=== PATIENT | male | born 1950 | race Caucasian/White ===

== ENCOUNTER → 2016-09-14 | Outpatient (CLI) | payer MEDICAID ==
[2016-09-14 13:04] LABS: BASOPHILS % (AUTO) 0 % (0-10); EOSINOPHILS # (AUTO) 0.3 10^3/uL (0.0-0.3); EOSINOPHILS % (AUTO) 4 % (0-10); LYMPHOCYTES # (AUTO) 2.1 X 10^3 (1.0-4.0); LYMPHOCYTES % (AUTO) 31 % (12-44); MEAN CORPUSCULAR HEMOGLOBIN 31 PG (25-34); MEAN CORPUSCULAR HGB CONC 34 G/DL (32-36); MEAN CORPUSCULAR VOLUME 94 FL (80-99); MEAN PLATELET VOLUME 8.6 FL (7.4-10.4); MONOCYTES # (AUTO) 0.9 X 10^3 (0.0-1.0); MONOCYTES % (AUTO) 13 % (0-12); NEUTROPHILS # (AUTO) 3.4 X 10^3 (1.8-7.8); NEUTROPHILS % (AUTO) 52 % (42-75); PLATELET COUNT 269 10^3/uL (130-400); RED BLOOD COUNT 4.69 10^6/uL (4.35-5.85); WHITE BLOOD COUNT 6.7 10^3/uL (4.3-11.0)
[2016-09-14 13:48] LABS: ALANINE AMINOTRANSFERASE 21 U/L (0-55); ALBUMIN 4.5 G/DL (3.2-4.5); ANION GAP 11 MMOL/L (5-14); ASPARTATE AMINO TRANSFERASE 23 U/L (5-34); BILIRUBIN,TOTAL 0.3 MG/DL (0.1-1.0); BLOOD UREA NITROGEN 10 MG/DL (7-18); BUN/CREATININE RATIO 12; CALCIUM 9.4 MG/DL (8.5-10.1); CARBON DIOXIDE 27 MMOL/L (21-32); CHLORIDE 103 MMOL/L (98-107); CREATININE SERUM 0.82 MG/DL (0.60-1.30); GFR ESTIMATED > 60; GLUCOSE 96 MG/DL (70-105); POTASSIUM 4.4 MMOL/L (3.6-5.0); SODIUM 141 MMOL/L (135-145); TOTAL PROTEIN 7.4 G/DL (6.4-8.2)
[2016-09-14 14:10] LABS: THYROID STIMULATING HORMONE 1.11 UIU/ML (0.35-4.94)
== END ==
LOC: ONC 12:40
PROVIDERS: ATTEND Internal Medicine Hematology & Oncology
DX: Z08 Encounter for follow-up examination after completed treatment for malignant neoplasm (principal); Z85.21 Personal history of malignant neoplasm of larynx; E03.9 Hypothyroidism, unspecified; G40.909 Epilepsy, unspecified, not intractable, without status epilepticus; Z79.899 Other long term (current) drug therapy
CPT/HCPCS: 36415; 80053; 84443; 85025; 99213

== ENCOUNTER → 2017-06-21 | Outpatient (CLI) | payer MEDICAID ==
[2017-06-21 09:48] LABS: HEMOGLOBIN 14.9 G/DL (13.3-17.7); MEAN PLATELET VOLUME 9.2 FL (7.4-10.4); RED BLOOD COUNT 4.59 10^6/uL (4.35-5.85); RED CELL DISTRIBUTION WIDTH 13.8 % (10.0-14.5); WHITE BLOOD COUNT 4.7 10^3/uL (4.3-11.0)
[2017-06-21 10:08] LABS: ALANINE AMINOTRANSFERASE 27 U/L (0-55); ALBUMIN 4.6 GM/DL (3.2-4.5); ALKALINE PHOSPHATASE 89 U/L (40-136); BILIRUBIN,TOTAL 0.4 MG/DL (0.1-1.0); BUN/CREATININE RATIO 14; CALCIUM 9.6 MG/DL (8.5-10.1); CARBON DIOXIDE 23 MMOL/L (21-32); CHLORIDE 105 MMOL/L (98-107); CHOLESTEROL 217 MG/DL (< 200); CREATININE SERUM 0.74 MG/DL (0.60-1.30); GFR ESTIMATED > 60; GLUCOSE 100 MG/DL (70-105); HDL CHOLESTEROL 88 MG/DL (40-60); POTASSIUM 3.9 MMOL/L (3.6-5.0); SODIUM 141 MMOL/L (135-145); TOTAL PROTEIN 7.9 GM/DL (6.4-8.2); TRIGLYCERIDES 57 MG/DL (<150); VLDL CHOLESTEROL 11 MG/DL (5-40)
== END ==
LOC: LAB 08:58
PROVIDERS: ATTEND Family Medicine
DX: E78.5 Hyperlipidemia, unspecified (principal); E03.9 Hypothyroidism, unspecified; R56.9 Unspecified convulsions; I10 Essential (primary) hypertension
CPT/HCPCS: 36415; 80053; 80061; 80185; 84443; 85027

== ENCOUNTER → 2017-09-13 | Outpatient (CLI) | payer MEDICAID ==
--- NOTE | 2017-09-13 14:11 | Diagnostic Imaging Report ---
INDICATION: History of head and neck malignancy. TECHNIQUE: Two view chest at 2:00 p.m. CORRELATION STUDY: 08/24/2010 FINDINGS: Heart size stable. There is slight prominent appearance about central pulmonary arteries and resultant prominent appearance about the raúl. This can be associated with underlying pulmonary arterial hypertension. Lung church are hyperinflated with what appears to be senescent-type changes. No definitive infiltrate. Progressive degenerative changes about the thoracic spine. IMPRESSION: 1. Chronic-type change about the lung parenchyma. No infiltrate. Prominent appearance about the central pulmonary arteries can be associated with pulmonary arterial hypertension. Dictated by: Dictated on workstation # [id number]
== END ==
LOC: RAD 13:28
PROVIDERS: ATTEND Internal Medicine Hematology & Oncology
DX: R91.8 Other nonspecific abnormal finding of lung field (principal); Z85.89 Personal history of malignant neoplasm of other organs and systems
CPT/HCPCS: 71046

== ENCOUNTER → 2017-09-13 | Outpatient (CLI) | payer MEDICAID ==
[2017-09-13 12:40] LABS: BASOPHILS # (AUTO) 0.1 10^3/uL (0.0-0.1); BASOPHILS % (AUTO) 1 % (0-10); EOSINOPHILS # (AUTO) 0.3 10^3/uL (0.0-0.3); EOSINOPHILS % (AUTO) 3 % (0-10); HEMATOCRIT 44 % (40-54); HEMOGLOBIN 14.9 G/DL (13.3-17.7); LYMPHOCYTES # (AUTO) 2.5 X 10^3 (1.0-4.0); LYMPHOCYTES % (AUTO) 34 % (12-44); MEAN CORPUSCULAR HEMOGLOBIN 32 PG (25-34); MEAN CORPUSCULAR HGB CONC 34 G/DL (32-36); MEAN CORPUSCULAR VOLUME 93 FL (80-99); MEAN PLATELET VOLUME 9.5 FL (7.4-10.4); MONOCYTES # (AUTO) 0.8 X 10^3 (0.0-1.0); MONOCYTES % (AUTO) 11 % (0-12); NEUTROPHILS # (AUTO) 3.7 X 10^3 (1.8-7.8); NEUTROPHILS % (AUTO) 51 % (42-75); PLATELET COUNT 256 10^3/uL (130-400); RED BLOOD COUNT 4.71 10^6/uL (4.35-5.85); RED CELL DISTRIBUTION WIDTH 14.5 % (10.0-14.5); WHITE BLOOD COUNT 7.3 10^3/uL (4.3-11.0)
[2017-09-13 12:52] LABS: ALANINE AMINOTRANSFERASE 27 U/L (0-55); ALBUMIN 4.8 GM/DL (3.2-4.5); ALKALINE PHOSPHATASE 91 U/L (40-136); BILIRUBIN,TOTAL 0.3 MG/DL (0.1-1.0); BUN/CREATININE RATIO 13; CALCIUM 9.8 MG/DL (8.5-10.1); CARBON DIOXIDE 21 MMOL/L (21-32); CHLORIDE 102 MMOL/L (98-107); CREATININE SERUM 0.77 MG/DL (0.60-1.30); GFR ESTIMATED > 60; GLUCOSE 100 MG/DL (70-105); POTASSIUM 4.1 MMOL/L (3.6-5.0); SODIUM 137 MMOL/L (135-145); TOTAL PROTEIN 8.3 GM/DL (6.4-8.2)
== END ==
LOC: ONC 12:11
PROVIDERS: ATTEND Internal Medicine Hematology & Oncology
DX: Z08 Encounter for follow-up examination after completed treatment for malignant neoplasm (principal); Z85.21 Personal history of malignant neoplasm of larynx; E03.9 Hypothyroidism, unspecified; G40.909 Epilepsy, unspecified, not intractable, without status epilepticus; Z79.899 Other long term (current) drug therapy
CPT/HCPCS: 36415; 80053; 82378; 85025; 99213

== ENCOUNTER → 2017-10-11 | Outpatient (CLI) | payer MEDICAID | LOC: ONC 09:06 | PROVIDERS: ATTEND Internal Medicine Hematology & Oncology | DX: Z08 Encounter for follow-up examination after completed treatment for malignant neoplasm (principal); Z85.21 Personal history of malignant neoplasm of larynx; E03.9 Hypothyroidism, unspecified; G40.909 Epilepsy, unspecified, not intractable, without status epilepticus; Z79.899 Other long term (current) drug therapy | CPT/HCPCS: 36415; 82378 ==

== ENCOUNTER → 2018-01-02 | Outpatient (CLI) | payer MEDICAID | LOC: ONC 09:03 | PROVIDERS: ATTEND Internal Medicine Hematology & Oncology | DX: Z08 Encounter for follow-up examination after completed treatment for malignant neoplasm (principal); Z85.21 Personal history of malignant neoplasm of larynx; E03.9 Hypothyroidism, unspecified; G40.909 Epilepsy, unspecified, not intractable, without status epilepticus; Z79.899 Other long term (current) drug therapy | CPT/HCPCS: 36415; 82378 ==

== ENCOUNTER 2018-01-25 14:04 | Outpatient (RCR) | payer MEDICAID | END 2018-01-26 | disposition home or self-care (01) | LOC: ONC 14:04 | PROVIDERS: ATTEND Internal Medicine Hematology & Oncology | DX: Z08 Encounter for follow-up examination after completed treatment for malignant neoplasm (principal); Z85.21 Personal history of malignant neoplasm of larynx; I10 Essential (primary) hypertension; E03.9 Hypothyroidism, unspecified; G40.909 Epilepsy, unspecified, not intractable, without status epilepticus; R97.0 Elevated carcinoembryonic antigen [CEA]; Z79.899 Other long term (current) drug therapy; Z92.3 Personal history of irradiation | CPT/HCPCS: 99213 ==

== ENCOUNTER 2018-03-20 05:33 | Outpatient (CLI) | payer MEDICAID ==
[~2018-03-20] VITALS: Ht 165.1 cm; Wt 46.7 kg
[2018-03-21] MEDS ORDERED: ESCI10TA55 PO (10:15)
[2018-03-21] MEDS ORDERED: ATEN100T PO (10:15)
[2018-03-21] MEDS ORDERED: FURO40TA4 PO (10:15)
[2018-03-21] MEDS ORDERED: PHEN100C11 PO (10:15)
[2018-03-21] MEDS ORDERED: LEVO150T6 PO (10:15)
[2018-03-21] MEDS ORDERED: AMLO5TAB7 PO (10:15)
[2018-03-21] MEDS ORDERED: LISI40TA PO (10:15)
[2018-03-21] MEDS ORDERED: ATOR20TA66 PO (10:15)
[2018-03-21] MEDS ORDERED: TIZA2TAB3 PO (10:15)
== END 2018-03-21 10:16 | disposition home or self-care (01) ==
LOC: PREOP 05:33
PROVIDERS: ATTEND Surgery
DX: Z01.818 Encounter for other preprocedural examination (principal)

== ENCOUNTER 2018-03-27 12:10 | Day surgery (SDC) | payer MEDICAID ==
[~2018-03-27] VITALS: Ht 165.1 cm; Wt 46.7 kg
[~2018-03-27 12:10] MED LIST: AMLO5TAB7 PO; ATEN100T PO; ATOR20TA66 PO; ESCI10TA55 PO; FURO40TA4 PO; LEVO150T6 PO; LISI40TA PO; PHEN100C11 PO; TIZA2TAB3 PO
[2018-03-27] MEDS ORDERED: LACTATED RINGERS 1,000 ML IV STA (12:21)
[2018-03-27] MEDS ORDERED: LACTATED RINGERS 1,000 ML IV ONE (12:23)
[2018-03-27 12:35] VITALS: BP 178/90
[2018-03-27] MEDS ORDERED: PROPOFOL INJECTION 50 ML IV ONE (12:48)
[2018-03-27] MEDS ORDERED: MIDAZOLAM 2 MG/2 ML (VERSED) VIAL ONE (12:48)
--- NOTE | 2018-03-27 13:07 | Progress Note-Pre Operative ---
Pre-Operative Progress Note H&P Reviewed The H&P was reviewed, patient examined and no changes noted. Date Seen by Provider: Mar 27, 2018 Time Seen by Provider: 13:06 Date H&P Reviewed: Mar 27, 2018 Time H&P Reviewed: 13:06 Pre-Operative Diagnosis: screening colonoscopy JUAN R ZHAO DO Mar 27, 2018 13:07
[2018-03-27] MEDS ORDERED: GLYCOPYRROLATE 0.2 MG/ML (ROBINUL) 2 ML VIAL ONE (13:41)
--- NOTE | 2018-03-27 13:54 | Progress Note-Post Operative ---
Post-Operative Progess Note Surgeon (s)/Clothespin Machine Operator (s) Surgeon JUAN R ZHAO DO Clothespin Machine Operator: na Pre-Operative Diagnosis screening colonoscopy Post-Operative Diagnosis normal colon Procedure & Operative Findings Date of Procedure 03/27/18 Procedure Performed/Findings colonoscopy Anesthesia Type per parking manager Estimated Blood Loss Estimated blood loss (mL): none Specimens/Packing Specimens Removed na JUAN R ZHAO DO Mar 27, 2018 13:54
--- NOTE | 2018-03-27 13:57 | Discharge Inst-Simple/Standard ---
Discharge Inst-Standard Patient Instructions/Follow Up Plan of Care/Instructions/FU: follow up on as needed basis. repeat colonoscopy in 10 years unless family history of colon cancer then 5 years. If any problems before that be seen at that time. Activity as Tolerated: Yes Discharge Diet: Regular Diet JUAN R ZHAO DO Mar 27, 2018 13:57
[2018-03-27 14:05] VITALS: BP 125/75
[2018-03-27 14:34] VITALS: BP 135/80
[2018-03-27 14:39] VITALS: BP 135/80
--- NOTE | 2018-03-27 18:52 | OPERATIVE REPORT ---
DATE OF SERVICE: 03/27/2018 PREOPERATIVE DIAGNOSIS: Screening colonoscopy. POSTOPERATIVE DIAGNOSIS: Normal colon. PROCEDURE: Colonoscopy. SURGEON: Juan R Paz DO ANESTHESIA: Per RN DOCUMENT IMPROVEMENT SPECIALIST. ESTIMATED BLOOD LOSS: None. COMPLICATIONS: None. INDICATIONS: The patient is a 67-year-old male due for screening colonoscopy. He understands risks and benefits of procedure and wished to proceed with procedure. Consent was signed in the chart. DESCRIPTION OF PROCEDURE: The patient was taken to the endoscopy suite, placed in left lateral recumbent position. Timeout was performed. Digital rectal exam was performed. There were no palpable polyps, masses or ulcerations. Scope was inserted in the rectum, advanced all the way to the cecum with minimal difficulty. Prep was adequate with irrigation and suction. Scope was then slowly retracted back. There were no polyps, masses or ulcerations in the cecum, ascending, transverse, descending and sigmoid colon. Once in the rectum, scope was retroflexed noting no other pathology. Scope was returned to its normal position, slowly withdrawn until completely removed. The patient tolerated procedure well without any complications and sent to the recovery in stable condition. RECOMMENDATIONS: The patient will need repeat colonoscopy in 10 years unless family history of colon cancer, personal history of colon polyps. If he has any problems prior to that, he should be reevaluated at that time. Job ID: [id number] DocumentID: [id number] Dictated Date: 03/27/2018 13:58:50 Variety Saw Operator Date: 03/27/2018 18:51:32 Dictated By: JUAN R PAZ DO
== END 2018-03-27 14:40 | disposition home or self-care (01) ==
LOC: ENDO 12:10
PROVIDERS: ATTEND Surgery
DX: Z12.11 Encounter for screening for malignant neoplasm of colon (principal); I10 Essential (primary) hypertension; R56.9 Unspecified convulsions; F17.220 Nicotine dependence, chewing tobacco, uncomplicated; Z85.818 Personal history of malignant neoplasm of other sites of lip, oral cavity, and pharynx; Z79.899 Other long term (current) drug therapy

== ENCOUNTER 2018-11-29 14:38 | Emergency (ER) | payer MEDICAID ==
[~2018-11-29] VITALS: Ht 165.1 cm; Wt 70.8 kg
[~2018-11-29 14:38] MED LIST changes: -AMLO5TAB7 PO; +AMLO5TAB9 PO
--- NOTE | 2018-11-29 15:31 | Diagnostic Imaging Report ---
INDICATION: Status post fall. Complaining of left hand pain and swelling, bruising sensation to the palm of the hand and fourth and fifth digits. EXAMINATION: Left hand, 11/29/2018. FINDINGS: Three views of the hand. There is a fracture at the base of the fifth metacarpal. Involvement of the adjacent carpal metacarpal joint space is difficult to exclude. Soft tissue swelling is noted in the region. Deformity of the ulnar styloid appears chronic. Remaining osseous structures are grossly intact. IMPRESSION: Fracture of the proximal fifth metacarpal, see above description. A fracture at the base of the fourth metacarpal is not seen but difficult to exclude due to superimposed osseous structures. Remaining findings appear chronic. Dictated by: Dictated on workstation # [id number]
--- NOTE | 2018-11-29 15:58 | ED Upper Extremity ---
General Chief Complaint: Upper Extremity Stated Complaint: FELL - L HAND PAIN Nursing Triage Note: PT AMB TO TRIAGE WITH COMPLAINT OF LEFT HAND INJURY AFTER FALLING. PT DENIES HITTING OR OTHER INJURIES. DENIES LOC. Nursing Sepsis Screen: No Definite Risk Source: patient Exam Limitations: no limitations History of Present Illness Date Seen by Provider: Nov 29, 2018 Time Seen by Provider: 15:57 Initial Comments Left hand pain and swelling after falling down 2 steps 2 days ago. Denies other injuries from fall including striking head or loc. Pain/Injury Location: left hand Method of Injury: fell Modifying Factors: Worse With Movement Allergies and Home Medications Allergies Coded Allergies: No Known Drug Allergies (Unverified , 03/20/18) Home Medications Amlodipine Besylate 5 Mg Tablet, 5 MG PO DAILY, (Reported) Atenolol 100 Mg Tablet, 100 MG PO DAILY, (Reported) Atorvastatin Calcium 20 Mg Tablet, 20 MG PO HS, (Reported) Escitalopram Oxalate 10 Mg Tablet, 10 MG PO DAILY, (Reported) Furosemide 40 Mg Tablet, 40 MG PO DAILY, (Reported) Levothyroxine Sodium 150 Mcg Tablet, 150 MCG PO DAILY, (Reported) Lisinopril 40 Mg Tablet, 40 MG PO DAILY, (Reported) Phenytoin Sodium Extended 100 Mg Capsule, 400 MG PO DAILY, (Reported) Tizanidine HCl 2 Mg Tablet, 2 MG PO BID, (Reported) Patient Home Medication List Home Medication List Reviewed: Yes Review of Systems Constitutional: see HPI; No chills, No fever Musculoskeletal: see HPI, joint pain (left hand) All Other Systems Reviewed Negative Unless Noted: Yes Past Lzlxgha-Behdrp-Fjhywb Hx Past Med/Social Hx: Reviewed Nursing Past Med/Soc Hx Patient Social History Alcohol Use: Denies Use Recreational Drug Use: No Smoking Status: Former Smoker Type Used: Smokeless Tobacco Recent Foreign Travel: No Contact w/Someone Who Travel: No Recent Infectious Disease Expo: No Recent Hopitalizations: No Immunizations Up To Date Tetanus Booster (TDap): Unknown Date of Influenza Vaccine: Mar 05, 2018 Seasonal Allergies Seasonal Allergies: No Past Medical History Surgeries: Yes (VOICE BOX REMOVED, BACK) Respiratory: No Cardiac: Yes High Cholesterol, Hypertension Neurological: Yes Seizure Disorder Reproductive Disorders: No Sexually Transmitted Disease: No HIV/AIDS: No Gastrointestinal: No Musculoskeletal: Yes Chronic Back Pain Endocrine: Yes (BOARDERLINE DIABETIC) Loss of Vision: Bilateral Hearing Impairment: Denies Cancer: Yes (THROAT) What Type of Treatment Did You: Surgical Intervention Psychosocial: No Integumentary: No Blood Disorders: No Adverse Reaction/Blood Tranf: No (N/A) Family Medical History Reviewed Nursing Family Hx Physical Exam Vital Signs Vital Signs - First Documented 11/29/18 14:45 Temp 98.0 Pulse 69 Resp 17 B/P (MAP) 182/98 (126) Pulse Ox 97 O2 Delivery Room Air Capillary Refill : Less Than 3 Seconds Height, Weight, BMI Height: 5'5.00" Weight: 156lbs. 0.0oz. [id number]; 17.1 BMI Method:Stated General Appearance: WD/WN, no apparent distress Cardiovascular: normal peripheral pulses, regular rate, rhythm, no edema, no gallop, no JVD, no murmur Respiratory: chest non-tender, lungs clear, normal breath sounds, no respiratory distress, no accessory muscle use Hand: Left, ecchymosis (to dorsal surface), swelling Neurologic/Psychiatric: alert, normal mood/affect, oriented x 3 Skin: normal color, warm/dry Procedures/Interventions Splinting and Joint Reduction : Splint Application: Short Arm (ulnar gutter, normal neurovascular function after application.) Progress/Results/Core Measures Results/Orders My Orders Vital Signs/I&O Blood Pressure Mean: 126 Departure Impression Primary Impression: Fracture of metacarpal of left hand, closed Disposition: 01 HOME, SELF-CARE Condition: Stable/Unchanged Departure-Patient Inst. Decision time for Depature: 15:52 Referrals: PRABHA GARZA DO (PCP/Family) Primary Care Physician LOUIS CONNOLLY TERRY D MD STRINGER, ROBERT F DO ZAFUTA, MICHAEL P MD Patient Instructions: Hand Fracture (DC) Add. Discharge Instructions: Tylenol and ibuprofen as directed by the bottle for pain relief. Ice to the sore areas at 20 minute intervals. Keep the splint on at all times. Call tomorrow to schedule an appointment for follow-up with an orthopedic surgeon of your choosing. Return back to the emergency room for worsening symptoms or concerns as needed. All discharge instructions reviewed with patient and/or family. Voiced understanding. LUÍS MIRAMONTES Nov 29, 2018 15:58
[2018-11-29 16:07] VITALS: BP 182/98
== END 2018-11-29 16:07 | disposition home or self-care (01) ==
LOC: EDUNIT# 14:38 → ER 14:39
DX: S62.315A Displaced fracture of base of fourth metacarpal bone, left hand, initial encounter for closed fracture (principal); I10 Essential (primary) hypertension; E78.00 Pure hypercholesterolemia, unspecified; G40.909 Epilepsy, unspecified, not intractable, without status epilepticus; Z85.819 Personal history of malignant neoplasm of unspecified site of lip, oral cavity, and pharynx; Z87.891 Personal history of nicotine dependence; W19.XXXA Unspecified fall, initial encounter
CPT/HCPCS: 26605; 73130

== ENCOUNTER 2018-12-12 05:39 | Outpatient (CLI) | payer MEDICAID ==
[~2018-12-12] VITALS: Ht 165.1 cm; Wt 65.8 kg
[2018-12-12] MEDS ORDERED: AMLO2.5T4 PO (13:06)
== END 2018-12-12 13:12 | disposition home or self-care (01) ==
LOC: PREOP 05:39
PROVIDERS: ATTEND Specialist
DX: Z01.818 Encounter for other preprocedural examination (principal)

== ENCOUNTER 2018-12-14 09:55 | Day surgery (SDC) | payer MEDICAID ==
[~2018-12-14] VITALS: Ht 165.1 cm; Wt 65.8 kg
[~2018-12-14 09:55] MED LIST changes: +AMLO2.5T4 PO
[2018-12-14 10:10] VITALS: BP 168/84
[2018-12-14] MEDS ORDERED: TIMOLOL MALEATE 0.5% 5 ML (TIMOPTIC) BTL OU PRN (10:15)
[2018-12-14] MEDS ORDERED: MOXIFLOXACIN OPHTH SOLN 5 MG/ML 0.3 ML SYRINGE OP ONE (10:15)
[2018-12-14] MEDS ORDERED: LIDOCAINE PF 1% 2 ML AMP IR PRN (10:15)
[2018-12-14] MEDS ORDERED: POVIDONE (BETADINE) OPHTH SOLN 5% 30 ML OP ONE (10:15)
[2018-12-14] MEDS: TETRACAINE 0.5% OPHTH SOLN 4 ML BTL (SINGLE DOSE ONLY) OU PRN ×4 (10:28→11:15)
[2018-12-14] MEDS: PHENYLEPHRINE 10% OPHTH (NEO-SYN) 5 ML BTL OU SCH ×3 (10:39→11:15)
[2018-12-14] MEDS: CYCLOPENTOLATE 1% (CYCLOGYL) 2 ML DROPS OP SCH ×3 (10:39→11:15)
[2018-12-14] MEDS ORDERED: MIDAZOLAM 2 MG/2 ML (VERSED) VIAL ONE (11:26)
--- NOTE | 2018-12-14 11:55 | Ophthalmologist Pre-Op Note ---
Pre-Operative Progress Note H&P Reviewed The H&P was reviewed, patient examined and no changes noted. Date H&P Reviewed: Dec 14, 2018 Time H&P Reviewed: 11:25 Pre-Op Dx Cataract, Right Eye DRAKE MICHAEL MD Dec 14, 2018 11:55
--- NOTE | 2018-12-14 11:56 | Ophthalmology Operative Report ---
Cataract removal/placement IOL PREOPERATIVE DIAGNOSIS: Cataract Right Eye POSTOPERATIVE DIAGNOSIS: Cataract Right Eye PROCEDURE: Cataract removal and placement of posterior chamber implant, right eye SURGEON: Chago Michael ANESTHESIA: Topical with sedation COMPLICATIONS: None ESTIMATED BLOOD LOSS: Minimal DESCRIPTION OF PROCEDURE: After proper informed consent was obtained, the patient, a 68 male, was taken to the Operating Room and the right eye was anesthetized with tetracaine. The right eye was then prepped and draped in the usual manner. A wire lid speculum was placed. A paracentesis was made at the left hand position. Preservative free lidocaine was injected into the anterior chamber followed by viscoelastic. A clear corneal incision was made in the temporal position. A capsulorrhexis was preformed and the central nuclear and cortical material were removed. The posterior capsule was polished and Reji [id number] 19.0 IOL was placed into the capsular bag. The residual viscoelastic was aspirated and balanced saline solution was injected into the anterior chamber. Moxifloxacin was injected into the anterior chamber. The wound was checked and found to be water tight. The patient tolerated the procedure well without complications. CHAGO MICHAEL MD Dec 14, 2018 11:56
[2018-12-14 12:00] VITALS: BP 166/85
[2018-12-14] MEDS ORDERED: acetaZOLAMIDE ER 500 MG CAP (DIAMOX SEQUELS) PO ONE (12:00)
--- NOTE | 2018-12-14 12:52 | Anesthesia-General Post-Op ---
MAC Patient Condition Mental Status/LOC: Same as Preop Cardiovascular: Satisfactory Nausea/Vomiting: Absent Respiratory: Satisfactory Pain: Controlled Complications: Absent Post Op Complications Complications None Follow Up Care/Instructions Patient Instructions None needed. Anesthesiology Discharge Order Discharge Order Patient is doing well, no complaints, stable vital signs, no apparent adverse anesthesia problems. No complications reported per nursing. TACOS FINK CRNA Dec 14, 2018 12:52
--- OUTSIDE RECORDS SUMMARY | 2018-12-14 19:23 | XMS REPORT | Continuity of Care Document ---
Author Organization Unknown Address Unknown Allergies Active Description Code Type Severity Reaction Onset Reported/Identified Relationship to Patient Clinical Status Yes No Allergy Information Available [id number] Drug Allergy Unknown N/A 01/19/2018 Yes No Known Drug Allergies [id number] Drug Allergy Unknown N/A 03/20/2018 Medications There is no data. Problems Date Dx Coded Attending Type Code Diagnosis Diagnosed By 11/18/2014 SAL DARLING MD, Ot 244.9 11/18/2014 PHONG ISRAEL, SAL Ot 345.90 11/18/2014 SAL DARLING MD Ot V10.21 11/18/2014 SAL DARLING MD Ot V44.0 11/18/2014 SAL DARLING MD Ot V58.69 11/18/2014 SAL DARLING MD Ot V67.1 09/24/2015 SAL DARLING MD Ot E03.9 HYPOTHYROIDISM, UNSPECIFIED 09/24/2015 SAL DARLING MD Ot G40.909 EPILEPSY, UNSP, NOT INTRACTABLE, WITHOUT 09/24/2015 SAL DARLING MD Ot Z08 ENCNTR FOR FOLLOW-UP EXAM AFTER TRTMT FO 09/24/2015 SAL DARLIGN MD Ot Z79.899 OTHER CUSTODIAL (CURRENT) DRUG THERAPY 09/24/2015 SAL DARLING MD Ot Z85.21 PERSONAL HISTORY OF MALIGNANT NEOPLASM O 10/06/2015 SAL DARLING MD, Ot E03.9 HYPOTHYROIDISM, UNSPECIFIED 10/06/2015 SAL DARLING MD, Ot G40.909 EPILEPSY, UNSP, NOT INTRACTABLE, WITHOUT 10/06/2015 SAL DARLING MD Ot Z08 ENCNTR FOR FOLLOW-UP EXAM AFTER TRTMT FO 10/06/2015 SAL DARLING MD, Ot Z79.899 OTHER COMPLEX CARE NURSE (CURRENT) DRUG THERAPY 10/06/2015 SAL DARLING MD, Ot Z85.21 PERSONAL HISTORY OF MALIGNANT NEOPLASM O 09/14/2016 Ot 244.9 HYPOTHYROIDISM NOS 09/14/2016 Ot 345.90 EPILEPSY UNSPEC W/O MENTION INTRACTABLE 09/14/2016 Ot 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 09/14/2016 Ot 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 09/14/2016 Ot V58.69 OTH MED,LT,CURRENT USE 09/14/2016 Ot V67.1 RADIOTHERAPY FOLLOW- UP 09/14/2016 Ot 244.9 HYPOTHYROIDISM NOS 09/14/2016 Ot 345.90 EPILEPSY UNSPEC W/O MENTION INTRACTABLE 09/14/2016 Ot 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 09/14/2016 Ot 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 09/14/2016 Ot V58.69 OTH MED,LT,CURRENT USE 09/14/2016 Ot V67.1 RADIOTHERAPY FOLLOW- UP 09/14/2016 SAL DARLING MD Ot 244.9 HYPOTHYROIDISM NOS 09/14/2016 SAL DARLING MD Ot 345.90 EPILEPSY UNSPEC W/O MENTION INTRACTABLE 09/14/2016 SAL DARLING MD Ot 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 09/14/2016 SAL DARLING MD Ot 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 09/14/2016 SAL DARLING MD Ot V58.69 OTH MED,LT,CURRENT USE 09/14/2016 SAL DARLING MD Ot V67.1 RADIOTHERAPY FOLLOW-UP 09/14/2016 SAL DARLING MD Ot 244.9 HYPOTHYROIDISM NOS 09/14/2016 SAL DARLING MD Ot 345.90 EPILEPSY UNSPEC W/O MENTION INTRACTABLE 09/14/2016 SAL DARLING MD Ot 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 09/14/2016 SAL DARLING MD Ot 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 09/14/2016 SAL DARLING MD Ot V58.69 OTH MED,LT,CURRENT USE 09/14/2016 SAL DARLING MD Ot V67.1 RADIOTHERAPY FOLLOW-UP 09/14/2016 SAL DARLING MD Ot E03.9 HYPOTHYROIDISM, UNSPECIFIED 09/14/2016 SAL DARLING MD Ot G40.909 EPILEPSY, UNSP, NOT INTRACTABLE, WITHOUT 09/14/2016 SAL DARLING MD Ot Z08 ENCNTR FOR FOLLOW-UP EXAM AFTER TRTMT FO 09/14/2016 SAL DARLING MD Ot Z79.899 OTHER CUSTODIAL (CURRENT) DRUG THERAPY 09/14/2016 SAL DARLING MD Ot Z85.21 PERSONAL HISTORY OF MALIGNANT NEOPLASM O 09/23/2016 SAL DARLING MD Ot E03.9 HYPOTHYROIDISM, UNSPECIFIED 09/23/2016 SAL DARLING MD Ot G40.909 EPILEPSY, UNSP, NOT INTRACTABLE, WITHOUT 09/23/2016 SAL DARLING MD Ot Z08 ENCNTR FOR FOLLOW-UP EXAM AFTER TRTMT FO 09/23/2016 SAL DARLING MD Ot Z79.899 OTHER COMPLEX CARE NURSE (CURRENT) DRUG THERAPY 09/23/2016 SAL DARLING MD Ot Z85.21 PERSONAL HISTORY OF MALIGNANT NEOPLASM O 06/21/2017 Ot 244.9 HYPOTHYROIDISM NOS 06/21/2017 Ot 345.90 EPILEPSY UNSPEC W/O MENTION INTRACTABLE 06/21/2017 Ot 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 06/21/2017 Ot 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 06/21/2017 Ot V58.69 OTH MED,LT,CURRENT USE 06/21/2017 Ot V67.1 RADIOTHERAPY FOLLOW- UP 06/21/2017 SAL DARLING MD Ot 244.9 HYPOTHYROIDISM NOS 06/21/2017 SAL DARLING MD Ot 345.90 EPILEPSY UNSPEC W/O MENTION INTRACTABLE 06/21/2017 SAL DARLING MD Ot 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 06/21/2017 SAL DARLING MD Ot 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 06/21/2017 SAL DARLING MD Ot V58.69 OTH MED,LT,CURRENT USE 06/21/2017 SAL DARLING MD Ot V67.1 RADIOTHERAPY FOLLOW-UP 06/21/2017 SAL DARLING MD Ot 244.9 HYPOTHYROIDISM NOS 06/21/2017 SAL DARLNIG MD Ot 345.90 EPILEPSY UNSPEC W/O MENTION INTRACTABLE 06/21/2017 SAL DARLING MD Ot 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 06/21/2017 SAL DARLING MD Ot 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 06/21/2017 SAL DARLING MD Ot V58.69 OTH MED,LT,CURRENT USE 06/21/2017 PHONG ISRAEL, SAL Ot V67.1 RADIOTHERAPY FOLLOW-UP 06/21/2017 SAL DARLING MD Ot E03.9 HYPOTHYROIDISM, UNSPECIFIED 06/21/2017 SAL DARLING MD Ot G40.909 EPILEPSY, UNSP, NOT INTRACTABLE, WITHOUT 06/21/2017 SAL DARLING MD Ot Z08 ENCNTR FOR FOLLOW-UP EXAM AFTER TRTMT FO 06/21/2017 SAL DARLING MD Ot Z79.899 OTHER CUSTODIAL (CURRENT) DRUG THERAPY 06/21/2017 SAL DARLING MD Ot Z85.21 PERSONAL HISTORY OF MALIGNANT NEOPLASM O 06/21/2017 SAL DARLING MD Ot E03.9 HYPOTHYROIDISM, UNSPECIFIED 06/21/2017 SAL DARLING MD, Ot G40.909 EPILEPSY, UNSP, NOT INTRACTABLE, WITHOUT 06/21/2017 SAL DARLING MD, Ot Z08 ENCNTR FOR FOLLOW-UP EXAM AFTER TRTMT FO 06/21/2017 SAL DARLING MD Ot Z79.899 OTHER COMPLEX CARE NURSE (CURRENT) DRUG THERAPY 06/21/2017 SAL DARLING MD Ot Z85.21 PERSONAL HISTORY OF MALIGNANT NEOPLASM O 06/22/2017 GELLENDER DO, PRABHA Gama Ot E03.9 HYPOTHYROIDISM, UNSPECIFIED 06/22/2017 GELLENDER DO, PRABHA Gama Ot E78.5 HYPERLIPIDEMIA, UNSPECIFIED 06/22/2017 GELLENDER DO, PRABHA A Ot I10 ESSENTIAL (PRIMARY) HYPERTENSION 06/22/2017 GELLENDER DO, PRABHA Gama Ot R56.9 UNSPECIFIED CONVULSIONS 07/04/2017 GELLENDER DO, PRABHA A Ot E03.9 HYPOTHYROIDISM, UNSPECIFIED 07/04/2017 GELLENDER DO, PRABHA Natan Ot E78.5 HYPERLIPIDEMIA, UNSPECIFIED 07/04/2017 GELLENDER DO, PRABHA A Ot I10 ESSENTIAL (PRIMARY) HYPERTENSION 07/04/2017 GELLENDER DO, PRABHA A Ot R56.9 UNSPECIFIED CONVULSIONS 09/13/2017 Ot 244.9 HYPOTHYROIDISM NOS 09/13/2017 Ot 345.90 EPILEPSY UNSPEC W/O MENTION INTRACTABLE 09/13/2017 Ot 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 09/13/2017 Ot 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 09/13/2017 Ot V58.69 OTH MED,LT,CURRENT USE 09/13/2017 Ot V67.1 RADIOTHERAPY FOLLOW- UP 09/13/2017 SAL DARLING MD Ot 244.9 HYPOTHYROIDISM NOS 09/13/2017 SAL DARLING MD Ot 345.90 EPILEPSY UNSPEC W/O MENTION INTRACTABLE 09/13/2017 SAL DARLING MD Ot 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 09/13/2017 SAL DARLING MD Ot 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 09/13/2017 SAL DARLING MD Ot V58.69 OTH MED,LT,CURRENT USE 09/13/2017 SAL DARLING MD Ot V67.1 RADIOTHERAPY FOLLOW-UP 09/13/2017 SAL DARLING MD Ot 244.9 HYPOTHYROIDISM NOS 09/13/2017 SAL DARLING MD Ot 345.90 EPILEPSY UNSPEC W/O MENTION INTRACTABLE 09/13/2017 SAL DARLING MD Ot 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 09/13/2017 SAL DARLING MD Ot 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 09/13/2017 SAL DARLING MD Ot V58.69 OTH MED,LT,CURRENT USE 09/13/2017 SAL DARLING MD Ot V67.1 RADIOTHERAPY FOLLOW-UP 09/13/2017 SAL DARLING MD Ot E03.9 HYPOTHYROIDISM, UNSPECIFIED 09/13/2017 SAL DARLING MD Ot G40.909 EPILEPSY, UNSP, NOT INTRACTABLE, WITHOUT 09/13/2017 SAL DARLING MD Ot Z08 ENCNTR FOR FOLLOW-UP EXAM AFTER TRTMT FO 09/13/2017 SAL DARLING MD Ot Z79.899 OTHER COMPLEX CARE NURSE (CURRENT) DRUG THERAPY 09/13/2017 SAL DARLING MD Ot Z85.21 PERSONAL HISTORY OF MALIGNANT NEOPLASM O 09/13/2017 SAL DARLING MD Ot E03.9 HYPOTHYROIDISM, UNSPECIFIED 09/13/2017 SAL DARLING MD Ot G40.909 EPILEPSY, UNSP, NOT INTRACTABLE, WITHOUT 09/13/2017 SAL DARLING MD Ot Z08 ENCNTR FOR FOLLOW-UP EXAM AFTER TRTMT FO 09/13/2017 SAL DARLING MD, Ot Z79.899 OTHER COMPLEX CARE NURSE (CURRENT) DRUG THERAPY 09/13/2017 SAL DARLING MD Ot Z85.21 PERSONAL HISTORY OF MALIGNANT NEOPLASM O 09/13/2017 GELLENDER DO, PRABHA A Ot E03.9 HYPOTHYROIDISM, UNSPECIFIED 09/13/2017 GELLENDER DO, PRABHA A Ot E78.5 HYPERLIPIDEMIA, UNSPECIFIED 09/13/2017 GELLENDER DO, PRABHA A Ot I10 ESSENTIAL (PRIMARY) HYPERTENSION 09/13/2017 GELLENDER DO, PRABHA A Ot R56.9 UNSPECIFIED CONVULSIONS 09/14/2017 SAL DARLING MD Ot R91.8 OTHER NONSPECIFIC ABNORMAL FINDING OF [place] 09/14/2017 SAL DARLING MD Ot Z85.89 PERSONAL HISTORY OF MALIGNANT NEOPLASM O 09/14/2017 SAL DARLING MD Ot E03.9 HYPOTHYROIDISM, UNSPECIFIED 09/14/2017 SAL DARLING MD Ot G40.909 EPILEPSY, UNSP, NOT INTRACTABLE, WITHOUT 09/14/2017 SAL DARLING MD Ot Z08 ENCNTR FOR FOLLOW-UP EXAM AFTER TRTMT FO 09/14/2017 SAL DARLING MD Ot Z79.899 OTHER COMPLEX CARE NURSE (CURRENT) DRUG THERAPY 09/14/2017 SAL DARLING MD Ot Z85.21 PERSONAL HISTORY OF MALIGNANT NEOPLASM O 09/26/2017 SAL DARLING MD Ot E03.9 HYPOTHYROIDISM, UNSPECIFIED 09/26/2017 SAL DARLING MD Ot G40.909 EPILEPSY, UNSP, NOT INTRACTABLE, WITHOUT 09/26/2017 SAL DARLING MD Ot Z08 ENCNTR FOR FOLLOW-UP EXAM AFTER TRTMT FO 09/26/2017 SAL DARLING MD Ot Z79.899 OTHER COMPLEX CARE NURSE (CURRENT) DRUG THERAPY 09/26/2017 SAL DARLING MD Ot Z85.21 PERSONAL HISTORY OF MALIGNANT NEOPLASM O 09/26/2017 SAL DARLING MD Ot R91.8 OTHER NONSPECIFIC ABNORMAL FINDING OF [place] 09/26/2017 SAL DARLING MD Ot Z85.89 PERSONAL HISTORY OF MALIGNANT NEOPLASM O 10/13/2017 SAL DARLING MD Ot E03.9 HYPOTHYROIDISM, UNSPECIFIED 10/13/2017 SAL DARLING MD Ot G40.909 EPILEPSY, UNSP, NOT INTRACTABLE, WITHOUT 10/13/2017 SAL DARLING MD Ot Z08 ENCNTR FOR FOLLOW-UP EXAM AFTER TRTMT FO 10/13/2017 SAL DARLING MD Ot Z79.899 OTHER COMPLEX CARE NURSE (CURRENT) DRUG THERAPY 10/13/2017 SAL DARLING MD Ot Z85.21 PERSONAL HISTORY OF MALIGNANT NEOPLASM O 10/20/2017 SAL DARLING MD Ot E03.9 HYPOTHYROIDISM, UNSPECIFIED 10/20/2017 SAL DARLING MD Ot G40.909 EPILEPSY, UNSP, NOT INTRACTABLE, WITHOUT 10/20/2017 SAL DARLING MD Ot Z08 ENCNTR FOR FOLLOW-UP EXAM AFTER TRTMT FO 10/20/2017 SAL DARLING MD Ot Z79.899 OTHER COMPLEX CARE NURSE (CURRENT) DRUG THERAPY 10/20/2017 SAL DARLING MD Ot Z85.21 PERSONAL HISTORY OF MALIGNANT NEOPLASM O 01/12/2018 Ot E03.9 HYPOTHYROIDISM, UNSPECIFIED 01/12/2018 Ot G40.909 EPILEPSY, UNSP, NOT INTRACTABLE, WITHOUT 01/12/2018 Ot Z08 ENCNTR FOR FOLLOW- UP EXAM AFTER TRTMT FO 01/12/2018 Ot Z79.899 OTHER COMPLEX CARE NURSE (CURRENT) DRUG THERAPY 01/12/2018 Ot Z85.21 PERSONAL HISTORY OF MALIGNANT NEOPLASM O 01/19/2018 Ot 244.9 HYPOTHYROIDISM NOS 01/19/2018 Ot 345.90 EPILEPSY UNSPEC W/O MENTION INTRACTABLE 01/19/2018 Ot 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 01/19/2018 Ot 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 01/19/2018 Ot V58.69 OTH MED,LT,CURRENT USE 01/19/2018 Ot V67.1 RADIOTHERAPY FOLLOW- UP 01/19/2018 SAL DARLING MD Ot 244.9 HYPOTHYROIDISM NOS 01/19/2018 SAL DARLING MD Ot 345.90 EPILEPSY UNSPEC W/O MENTION INTRACTABLE 01/19/2018 SAL DARLING MD Ot 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 01/19/2018 SAL DARLING MD Ot 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 01/19/2018 SAL DARLING MD Ot V58.69 OTH MED,LT,CURRENT USE 01/19/2018 SAL DARLING MD, Ot V67.1 RADIOTHERAPY FOLLOW-UP 01/19/2018 SAL DARLING MD Ot 244.9 HYPOTHYROIDISM NOS 01/19/2018 SAL DARLING MD Ot 345.90 EPILEPSY UNSPEC W/O MENTION INTRACTABLE 01/19/2018 SAL DARLING MD Ot 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 01/19/2018 SAL DARLING MD Ot 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 01/19/2018 SAL DARLING MD, Ot V58.69 OTH MED,LT,CURRENT USE 01/19/2018 SAL DARLING MD, Ot V67.1 RADIOTHERAPY FOLLOW-UP 01/19/2018 SAL DARLING MD, Ot E03.9 HYPOTHYROIDISM, UNSPECIFIED 01/19/2018 SAL DARLING MD Ot G40.909 EPILEPSY, UNSP, NOT INTRACTABLE, WITHOUT 01/19/2018 SAL DARLING MD Ot Z08 ENCNTR FOR FOLLOW-UP EXAM AFTER TRTMT FO 01/19/2018 SAL DARLING MD Ot Z79.899 OTHER CUSTODIAL (CURRENT) DRUG THERAPY 01/19/2018 SAL DARLING MD Ot Z85.21 PERSONAL HISTORY OF MALIGNANT NEOPLASM O 01/19/2018 SAL DARLING MD Ot E03.9 HYPOTHYROIDISM, UNSPECIFIED 01/19/2018 SAL DARLING MD Ot G40.909 EPILEPSY, UNSP, NOT INTRACTABLE, WITHOUT 01/19/2018 SAL DARLING MD Ot Z08 ENCNTR FOR FOLLOW-UP EXAM AFTER TRTMT FO 01/19/2018 SAL DARLING MD Ot Z79.899 OTHER COMPLEX CARE NURSE (CURRENT) DRUG THERAPY 01/19/2018 SAL DARLING MD Ot Z85.21 PERSONAL HISTORY OF MALIGNANT NEOPLASM O 01/19/2018 GELLENDER DO, PRABHA A Ot E03.9 HYPOTHYROIDISM, UNSPECIFIED 01/19/2018 GELLENDER DO, PRABHA A Ot E78.5 HYPERLIPIDEMIA, UNSPECIFIED 01/19/2018 GELLENDER DO, PRABHA A Ot I10 ESSENTIAL (PRIMARY) HYPERTENSION 01/19/2018 GELLENDER DO, PRABHA A Ot R56.9 UNSPECIFIED CONVULSIONS 01/19/2018 SAL DARLING MD Ot E03.9 HYPOTHYROIDISM, UNSPECIFIED 01/19/2018 SAL DARLING MD Ot G40.909 EPILEPSY, UNSP, NOT INTRACTABLE, WITHOUT 01/19/2018 SAL DARLING MD Ot Z08 ENCNTR FOR FOLLOW-UP EXAM AFTER TRTMT FO 01/19/2018 SAL DARLING MD Ot Z79.899 OTHER CUSTODIAL (CURRENT) DRUG THERAPY 01/19/2018 SAL DARLING MD Ot Z85.21 PERSONAL HISTORY OF MALIGNANT NEOPLASM O 01/19/2018 SAL DARLING MD Ot R91.8 OTHER NONSPECIFIC ABNORMAL FINDING OF [place] 01/19/2018 SAL DARLING MD Ot Z85.89 PERSONAL HISTORY OF MALIGNANT NEOPLASM O 01/19/2018 SAL DARLING MD Ot E03.9 HYPOTHYROIDISM, UNSPECIFIED 01/19/2018 SAL DARLING MD Ot G40.909 EPILEPSY, UNSP, NOT INTRACTABLE, WITHOUT 01/19/2018 SAL DARLING MD Ot Z08 ENCNTR FOR FOLLOW-UP EXAM AFTER TRTMT FO 01/19/2018 SAL DARLING MD Ot Z79.899 OTHER CUSTODIAL (CURRENT) DRUG THERAPY 01/19/2018 SAL DARLING MD Ot Z85.21 PERSONAL HISTORY OF MALIGNANT NEOPLASM O 01/19/2018 Ot E03.9 HYPOTHYROIDISM, UNSPECIFIED 01/19/2018 Ot G40.909 EPILEPSY, UNSP, NOT INTRACTABLE, WITHOUT 01/19/2018 Ot Z08 ENCNTR FOR FOLLOW- UP EXAM AFTER TRTMT FO 01/19/2018 Ot Z79.899 OTHER COMPLEX CARE NURSE (CURRENT) DRUG THERAPY 01/19/2018 Ot Z85.21 PERSONAL HISTORY OF MALIGNANT NEOPLASM O 01/19/2018 Ot E03.9 HYPOTHYROIDISM, UNSPECIFIED 01/19/2018 Ot G40.909 EPILEPSY, UNSP, NOT INTRACTABLE, WITHOUT 01/19/2018 Ot I10 ESSENTIAL (PRIMARY) HYPERTENSION 01/19/2018 Ot Z08 ENCNTR FOR FOLLOW- UP EXAM AFTER TRTMT FO 01/19/2018 Ot Z79.899 OTHER COMPLEX CARE NURSE (CURRENT) DRUG THERAPY 01/19/2018 Ot Z85.21 PERSONAL HISTORY OF MALIGNANT NEOPLASM O 01/19/2018 Ot Z92.3 PERSONAL HISTORY OF IRRADIATION 01/19/2018 Ot E03.9 HYPOTHYROIDISM, UNSPECIFIED 01/19/2018 Ot G40.909 EPILEPSY, UNSP, NOT INTRACTABLE, WITHOUT 01/19/2018 Ot I10 ESSENTIAL (PRIMARY) HYPERTENSION 01/19/2018 Ot Z08 ENCNTR FOR FOLLOW- UP EXAM AFTER TRTMT FO 01/19/2018 Ot Z79.899 OTHER COMPLEX CARE NURSE (CURRENT) DRUG THERAPY 01/19/2018 Ot Z85.21 PERSONAL HISTORY OF MALIGNANT NEOPLASM O 01/19/2018 Ot Z92.3 PERSONAL HISTORY OF IRRADIATION 01/23/2018 Ot E03.9 HYPOTHYROIDISM, UNSPECIFIED 01/23/2018 Ot G40.909 EPILEPSY, UNSP, NOT INTRACTABLE, WITHOUT 01/23/2018 Ot I10 ESSENTIAL (PRIMARY) HYPERTENSION 01/23/2018 Ot Z08 ENCNTR FOR FOLLOW- UP EXAM AFTER TRTMT FO 01/23/2018 Ot Z79.899 OTHER COMPLEX CARE NURSE (CURRENT) DRUG THERAPY 01/23/2018 Ot Z85.21 PERSONAL HISTORY OF MALIGNANT NEOPLASM O 01/23/2018 Ot Z92.3 PERSONAL HISTORY OF IRRADIATION 01/25/2018 SAL DARLING MD Ot J43.9 EMPHYSEMA, UNSPECIFIED 01/25/2018 SAL DARLING MD Ot Z12.89 ENCOUNTER FOR SCREENING FOR MALIGNANT NE 01/25/2018 SAL DARLING MD Ot Z85.21 PERSONAL HISTORY OF MALIGNANT NEOPLASM O 01/25/2018 SAL DARLING MD Ot 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 01/26/2018 SAL DARLING MD Ot E03.9 HYPOTHYROIDISM, UNSPECIFIED 01/26/2018 SAL DARLING MD Ot G40.909 EPILEPSY, UNSP, NOT INTRACTABLE, WITHOUT 01/26/2018 SAL DARLING MD Ot I10 ESSENTIAL (PRIMARY) HYPERTENSION 01/26/2018 SAL DARLING MD Ot R97.0 ELEVATED CARCINOEMBRYONIC ANTIGEN [CEA] 01/26/2018 SAL DARLING MD, Ot Z08 ENCNTR FOR FOLLOW-UP EXAM AFTER TRTMT FO 01/26/2018 SAL DARLING MD, Ot Z79.899 OTHER CUSTODIAL (CURRENT) DRUG THERAPY 01/26/2018 SAL DARLING MD Ot Z85.21 PERSONAL HISTORY OF MALIGNANT NEOPLASM O 01/26/2018 SAL DARLING MD Ot Z92.3 PERSONAL HISTORY OF IRRADIATION 01/26/2018 Ot E03.9 HYPOTHYROIDISM, UNSPECIFIED 01/26/2018 Ot G40.909 EPILEPSY, UNSP, NOT INTRACTABLE, WITHOUT 01/26/2018 Ot I10 ESSENTIAL (PRIMARY) HYPERTENSION 01/26/2018 Ot Z08 ENCNTR FOR FOLLOW- UP EXAM AFTER TRTMT FO 01/26/2018 Ot Z79.899 OTHER CUSTODIAL (CURRENT) DRUG THERAPY 01/26/2018 Ot Z85.21 PERSONAL HISTORY OF MALIGNANT NEOPLASM O 01/26/2018 Ot Z92.3 PERSONAL HISTORY OF IRRADIATION 02/01/2018 SAL DARLING MD Ot J43.9 EMPHYSEMA, UNSPECIFIED 02/01/2018 SAL DARLING MD Ot Z12.89 ENCOUNTER FOR SCREENING FOR MALIGNANT NE 02/01/2018 SAL DARLING MD Ot Z85.21 PERSONAL HISTORY OF MALIGNANT NEOPLASM O 02/01/2018 SAL DARLING MD Ot 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 02/28/2018 SAL DARLING MD Ot E03.9 HYPOTHYROIDISM, UNSPECIFIED 02/28/2018 SAL DARLING MD Ot G40.909 EPILEPSY, UNSP, NOT INTRACTABLE, WITHOUT 02/28/2018 SAL DARLING MD Ot I10 ESSENTIAL (PRIMARY) HYPERTENSION 02/28/2018 SAL DARLING MD Ot R97.0 ELEVATED CARCINOEMBRYONIC ANTIGEN [CEA] 02/28/2018 SAL DARLING MD Ot Z08 ENCNTR FOR FOLLOW-UP EXAM AFTER TRTMT FO 02/28/2018 SAL DARLING MD Ot Z79.899 OTHER COMPLEX CARE NURSE (CURRENT) DRUG THERAPY 02/28/2018 SAL DARLING MD Ot Z85.21 PERSONAL HISTORY OF MALIGNANT NEOPLASM O 02/28/2018 SAL DARLING MD Ot Z92.3 PERSONAL HISTORY OF IRRADIATION 03/20/2018 SAL DARLING MD Ot E03.9 HYPOTHYROIDISM, UNSPECIFIED 03/20/2018 SAL DARLING MD Ot G40.909 EPILEPSY, UNSP, NOT INTRACTABLE, WITHOUT 03/20/2018 SAL DARLING MD Ot I10 ESSENTIAL (PRIMARY) HYPERTENSION 03/20/2018 SAL DARLING MD Ot R97.0 ELEVATED CARCINOEMBRYONIC ANTIGEN [CEA] 03/20/2018 SAL DARLING MD Ot Z08 ENCNTR FOR FOLLOW-UP EXAM AFTER TRTMT FO 03/20/2018 SAL DARLING MD, Ot Z79.899 OTHER CUSTODIAL (CURRENT) DRUG THERAPY 03/20/2018 SAL DARLING MD, Ot Z85.21 PERSONAL HISTORY OF MALIGNANT NEOPLASM O 03/20/2018 SAL DARLING MD, Ot Z92.3 PERSONAL HISTORY OF IRRADIATION 03/21/2018 ZHAO DO, JUAN R D Ot Z01.818 ENCOUNTER FOR OTHER PREPROCEDURAL EXAMIN 03/21/2018 ZHAO DO, JUAN R D Ot Z01.818 ENCOUNTER FOR OTHER PREPROCEDURAL EXAMIN 03/27/2018 SAL DARLING MD Ot 244.9 HYPOTHYROIDISM NOS 03/27/2018 SAL DARLING MD Ot 345.90 EPILEPSY UNSPEC W/O MENTION INTRACTABLE 03/27/2018 SAL DARLING MD Ot 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 03/27/2018 SAL DARLING MD Ot 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 03/27/2018 SAL DARLING MD Ot V58.69 OTH MED,LT,CURRENT USE 03/27/2018 SAL DARLING MD Ot V67.1 RADIOTHERAPY FOLLOW-UP 03/27/2018 SAL DARLING MD Ot 244.9 HYPOTHYROIDISM NOS 03/27/2018 SAL DARLING MD Ot 345.90 EPILEPSY UNSPEC W/O MENTION INTRACTABLE 03/27/2018 SLA DARLING MD Ot 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 03/27/2018 SAL DARLING MD Ot 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 03/27/2018 SAL DARLING MD Ot V58.69 OTH MED,LT,CURRENT USE 03/27/2018 SAL DARLING MD Ot V67.1 RADIOTHERAPY FOLLOW-UP 03/27/2018 SLA DARLING MD Ot E03.9 HYPOTHYROIDISM, UNSPECIFIED 03/27/2018 SAL DARLING MD Ot G40.909 EPILEPSY, UNSP, NOT INTRACTABLE, WITHOUT 03/27/2018 SAL DARLING MD Ot Z08 ENCNTR FOR FOLLOW-UP EXAM AFTER TRTMT FO 03/27/2018 SAL DARLING MD, Ot Z79.899 OTHER CUSTODIAL (CURRENT) DRUG THERAPY 03/27/2018 SAL DARLING MD Ot Z85.21 PERSONAL HISTORY OF MALIGNANT NEOPLASM O 03/27/2018 SAL DARLING MD Ot E03.9 HYPOTHYROIDISM, UNSPECIFIED 03/27/2018 SAL DARLING MD Ot G40.909 EPILEPSY, UNSP, NOT INTRACTABLE, WITHOUT 03/27/2018 SAL DARLING MD Ot Z08 ENCNTR FOR FOLLOW-UP EXAM AFTER TRTMT FO 03/27/2018 SAL DARLING MD, Ot Z79.899 OTHER COMPLEX CARE NURSE (CURRENT) DRUG THERAPY 03/27/2018 SAL DARLING MD Ot Z85.21 PERSONAL HISTORY OF MALIGNANT NEOPLASM O 03/27/2018 GELLENDER DO, PRABHA A Ot E03.9 HYPOTHYROIDISM, UNSPECIFIED 03/27/2018 GELLENDER DO, PRABHA A Ot E78.5 HYPERLIPIDEMIA, UNSPECIFIED 03/27/2018 GELLENDER DO, PRABHA A Ot I10 ESSENTIAL (PRIMARY) HYPERTENSION 03/27/2018 GELLENDER DO, PRABHA A Ot R56.9 UNSPECIFIED CONVULSIONS 03/27/2018 SAL DARLING MD Ot E03.9 HYPOTHYROIDISM, UNSPECIFIED 03/27/2018 SAL DARLING MD Ot G40.909 EPILEPSY, UNSP, NOT INTRACTABLE, WITHOUT 03/27/2018 SAL DARLING MD, Ot Z08 ENCNTR FOR FOLLOW-UP EXAM AFTER TRTMT FO 03/27/2018 SAL DARLING MD, Ot Z79.899 OTHER CUSTODIAL (CURRENT) DRUG THERAPY 03/27/2018 SAL DARLING MD Ot Z85.21 PERSONAL HISTORY OF MALIGNANT NEOPLASM O 03/27/2018 SAL DARLING MD Ot R91.8 OTHER NONSPECIFIC ABNORMAL FINDING OF [place] 03/27/2018 SAL DARLING MD Ot Z85.89 PERSONAL HISTORY OF MALIGNANT NEOPLASM O 03/27/2018 SAL DARLING MD Ot E03.9 HYPOTHYROIDISM, UNSPECIFIED 03/27/2018 SAL DARLING MD Ot G40.909 EPILEPSY, UNSP, NOT INTRACTABLE, WITHOUT 03/27/2018 SAL DARLING MD Ot Z08 ENCNTR FOR FOLLOW-UP EXAM AFTER TRTMT FO 03/27/2018 SAL DARLING MD Ot Z79.899 OTHER COMPLEX CARE NURSE (CURRENT) DRUG THERAPY 03/27/2018 SAL DARLING MD Ot Z85.21 PERSONAL HISTORY OF MALIGNANT NEOPLASM O 03/27/2018 Ot E03.9 HYPOTHYROIDISM, UNSPECIFIED 03/27/2018 Ot G40.909 EPILEPSY, UNSP, NOT INTRACTABLE, WITHOUT 03/27/2018 Ot Z08 ENCNTR FOR FOLLOW- UP EXAM AFTER TRTMT FO 03/27/2018 Ot Z79.899 OTHER COMPLEX CARE NURSE (CURRENT) DRUG THERAPY 03/27/2018 Ot Z85.21 PERSONAL HISTORY OF MALIGNANT NEOPLASM O 03/27/2018 Ot E03.9 HYPOTHYROIDISM, UNSPECIFIED 03/27/2018 Ot G40.909 EPILEPSY, UNSP, NOT INTRACTABLE, WITHOUT 03/27/2018 Ot I10 ESSENTIAL (PRIMARY) HYPERTENSION 03/27/2018 Ot Z08 ENCNTR FOR FOLLOW- UP EXAM AFTER TRTMT FO 03/27/2018 Ot Z79.899 OTHER COMPLEX CARE NURSE (CURRENT) DRUG THERAPY 03/27/2018 Ot Z85.21 PERSONAL HISTORY OF MALIGNANT NEOPLASM O 03/27/2018 Ot Z92.3 PERSONAL HISTORY OF IRRADIATION 03/27/2018 SAL DARLING MD Ot J43.9 EMPHYSEMA, UNSPECIFIED 03/27/2018 SAL DARLING MD Ot Z12.89 ENCOUNTER FOR SCREENING FOR MALIGNANT NE 03/27/2018 SAL DARLING MD Ot Z85.21 PERSONAL HISTORY OF MALIGNANT NEOPLASM O 03/27/2018 SAL DARLING MD Ot 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 03/27/2018 SAL DARLING MD Ot E03.9 HYPOTHYROIDISM, UNSPECIFIED 03/27/2018 SAL DARLING MD Ot G40.909 EPILEPSY, UNSP, NOT INTRACTABLE, WITHOUT 03/27/2018 SAL DARLING MD Ot I10 ESSENTIAL (PRIMARY) HYPERTENSION 03/27/2018 SAL DARLING MD Ot R97.0 ELEVATED CARCINOEMBRYONIC ANTIGEN [CEA] 03/27/2018 SAL DARLING MD, Ot Z08 ENCNTR FOR FOLLOW-UP EXAM AFTER TRTMT FO 03/27/2018 SAL DARLING MD, Ot Z79.899 OTHER CUSTODIAL (CURRENT) DRUG THERAPY 03/27/2018 SAL DARLING MD Ot Z85.21 PERSONAL HISTORY OF MALIGNANT NEOPLASM O 03/27/2018 SAL DARLING MD Ot Z92.3 PERSONAL HISTORY OF IRRADIATION 03/27/2018 ZHAO DOJUAN R D Ot F17.220 NICOTINE DEPENDENCE, CHEWING TOBACCO, UN 03/27/2018 ZHAO DO JUAN R D Ot I10 ESSENTIAL (PRIMARY) HYPERTENSION 03/27/2018 ZHAO DO JUAN R D Ot R56.9 UNSPECIFIED CONVULSIONS 03/27/2018 ZHAO DO JUAN R D Ot Z12.11 ENCOUNTER FOR SCREENING FOR MALIGNANT NE 03/27/2018 ZHAO DO JUAN R D Ot Z79.899 OTHER CUSTODIAL (CURRENT) DRUG THERAPY 03/27/2018 ZHAO DO JUAN R D Ot 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, 03/28/2018 JUAN R ZHAO DO Ot F17.220 NICOTINE DEPENDENCE, CHEWING TOBACCO, UN 03/28/2018 ZHAO DOAMIRATT D Ot I10 ESSENTIAL (PRIMARY) HYPERTENSION 03/28/2018 ZHAO DOAMIRATT D Ot R56.9 UNSPECIFIED CONVULSIONS 03/28/2018 ZHAO JUAN R JOSEPH D Ot Z12.11 ENCOUNTER FOR SCREENING FOR MALIGNANT NE 03/28/2018 ZHAO AMIRATT D Ot Z79.899 OTHER COMPLEX CARE NURSE (CURRENT) DRUG THERAPY 03/28/2018 ZHAO AMIRATT D Ot 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, 11/29/2018 LUÍS MIRAMONTES Ot E78.00 PURE HYPERCHOLESTEROLEMIA, UNSPECIFIED 11/29/2018 LUÍS MIRAMONTES Ot G40.909 EPILEPSY, UNSP, NOT INTRACTABLE, WITHOUT 11/29/2018 LUÍS MIRAMONTES Ot I10 ESSENTIAL (PRIMARY) HYPERTENSION 11/29/2018 LUÍS MIRAMONTES Ot S62.315A DISP FX OF BASE OF FOURTH METACARPAL BON 11/29/2018 LUÍS MIRAMONTES Ot S69.92XA UNSP INJURY OF LEFT WRIST, HAND AND FING 11/29/2018 LUÍS MIRAMONTES Ot W19.XXXA UNSPECIFIED FALL, INITIAL ENCOUNTER 11/29/2018 LUÍS MIRAMONTES Ot Z85.819 PRSNL HX OF MALIG NEOPLM OF UNSP SITE LI 11/29/2018 LUÍS MIRAMONTES Ot Z87.891 PERSONAL HISTORY OF NICOTINE DEPENDENCE 12/04/2018 LUÍS MIRAMONTES Ot E78.00 PURE HYPERCHOLESTEROLEMIA, UNSPECIFIED 12/04/2018 LUÍS MIRAMONTES Ot G40.909 EPILEPSY, UNSP, NOT INTRACTABLE, WITHOUT 12/04/2018 LUÍS MIRAMONTES Ot I10 ESSENTIAL (PRIMARY) HYPERTENSION 12/04/2018 LUÍS MIRAMONTES Ot S62.315A DISP FX OF BASE OF FOURTH METACARPAL BON 12/04/2018 LUÍS MIRAMONTES Ot S69.92XA UNSP INJURY OF LEFT WRIST, HAND AND FING 12/04/2018 LUÍS MIRAMONTES Ot W19.XXXA UNSPECIFIED FALL, INITIAL ENCOUNTER 12/04/2018 LUÍS MIRAMONTES Ot Z85.819 PRSNL HX OF MALIG NEOPLM OF UNSP SITE LI 12/04/2018 LUÍS MIRAMONTES Ot Z87.891 PERSONAL HISTORY OF NICOTINE DEPENDENCE 12/05/2018 SAL DARLING MD Ot 244.9 HYPOTHYROIDISM NOS 12/05/2018 SAL DARLING MD Ot 345.90 EPILEPSY UNSPEC W/O MENTION INTRACTABLE 12/05/2018 SAL DARLING MD Ot 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 12/05/2018 SAL DARLING MD Ot 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 12/05/2018 SAL DARLING MD Ot V58.69 OTH MED,LT,CURRENT USE 12/05/2018 SAL DARLING MD Ot V67.1 RADIOTHERAPY FOLLOW-UP 12/05/2018 SAL DARLING MD Ot 244.9 HYPOTHYROIDISM NOS 12/05/2018 SAL DARLING MD Ot 345.90 EPILEPSY UNSPEC W/O MENTION INTRACTABLE 12/05/2018 SAL DARLING MD Ot 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 12/05/2018 SAL DARLING MD Ot 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 12/05/2018 SAL DARLING MD Ot V58.69 OTH MED,LT,CURRENT USE 12/05/2018 SAL DARLING MD Ot V67.1 RADIOTHERAPY FOLLOW-UP 12/05/2018 SAL DARLING MD Ot E03.9 HYPOTHYROIDISM, UNSPECIFIED 12/05/2018 SLA DARLING MD Ot G40.909 EPILEPSY, UNSP, NOT INTRACTABLE, WITHOUT 12/05/2018 SAL DARLING MD, Ot Z08 ENCNTR FOR FOLLOW-UP EXAM AFTER TRTMT FO 12/05/2018 SAL DARLING MD Ot Z79.899 OTHER CUSTODIAL (CURRENT) DRUG THERAPY 12/05/2018 SAL DARLING MD Ot Z85.21 PERSONAL HISTORY OF MALIGNANT NEOPLASM O 12/05/2018 SAL DARLING MD Ot E03.9 HYPOTHYROIDISM, UNSPECIFIED 12/05/2018 SAL DARLING MD Ot G40.909 EPILEPSY, UNSP, NOT INTRACTABLE, WITHOUT 12/05/2018 SAL DARLING MD Ot Z08 ENCNTR FOR FOLLOW-UP EXAM AFTER TRTMT FO 12/05/2018 SAL DARLING MD Ot Z79.899 OTHER CUSTODIAL (CURRENT) DRUG THERAPY 12/05/2018 SAL DARLING MD Ot Z85.21 PERSONAL HISTORY OF MALIGNANT NEOPLASM O 12/05/2018 GELLENDER DO, PRABHA A Ot E03.9 HYPOTHYROIDISM, UNSPECIFIED 12/05/2018 GELLENDER DO, PRABHA A Ot E78.5 HYPERLIPIDEMIA, UNSPECIFIED 12/05/2018 GELLENDER DO, PRABHA A Ot I10 ESSENTIAL (PRIMARY) HYPERTENSION 12/05/2018 GELLENDER DO, PRABHA A Ot R56.9 UNSPECIFIED CONVULSIONS 12/05/2018 SAL DARLING MD Ot E03.9 HYPOTHYROIDISM, UNSPECIFIED 12/05/2018 SAL DARLING MD Ot G40.909 EPILEPSY, UNSP, NOT INTRACTABLE, WITHOUT 12/05/2018 SAL DARLING MD Ot Z08 ENCNTR FOR FOLLOW-UP EXAM AFTER TRTMT FO 12/05/2018 SAL DARLING MD Ot Z79.899 OTHER COMPLEX CARE NURSE (CURRENT) DRUG THERAPY 12/05/2018 SAL DARLING MD Ot Z85.21 PERSONAL HISTORY OF MALIGNANT NEOPLASM O 12/05/2018 SAL DARLING MD Ot R91.8 OTHER NONSPECIFIC ABNORMAL FINDING OF [place] 12/05/2018 ASL DARLING MD Ot Z85.89 PERSONAL HISTORY OF MALIGNANT NEOPLASM O 12/05/2018 SAL DARLING MD Ot E03.9 HYPOTHYROIDISM, UNSPECIFIED 12/05/2018 SAL DARLING MD Ot G40.909 EPILEPSY, UNSP, NOT INTRACTABLE, WITHOUT 12/05/2018 SAL DARLING MD Ot Z08 ENCNTR FOR FOLLOW-UP EXAM AFTER TRTMT FO 12/05/2018 SAL DARLING MD Ot Z79.899 OTHER CUSTODIAL (CURRENT) DRUG THERAPY 12/05/2018 SAL DARLING MD Ot Z85.21 PERSONAL HISTORY OF MALIGNANT NEOPLASM O 12/05/2018 Ot E03.9 HYPOTHYROIDISM, UNSPECIFIED 12/05/2018 Ot G40.909 EPILEPSY, UNSP, NOT INTRACTABLE, WITHOUT 12/05/2018 Ot Z08 ENCNTR FOR FOLLOW- UP EXAM AFTER TRTMT FO 12/05/2018 Ot Z79.899 OTHER CUSTODIAL (CURRENT) DRUG THERAPY 12/05/2018 Ot Z85.21 PERSONAL HISTORY OF MALIGNANT NEOPLASM O 12/05/2018 Ot E03.9 HYPOTHYROIDISM, UNSPECIFIED 12/05/2018 Ot G40.909 EPILEPSY, UNSP, NOT INTRACTABLE, WITHOUT 12/05/2018 Ot I10 ESSENTIAL (PRIMARY) HYPERTENSION 12/05/2018 Ot Z08 ENCNTR FOR FOLLOW- UP EXAM AFTER TRTMT FO 12/05/2018 Ot Z79.899 OTHER COMPLEX CARE NURSE (CURRENT) DRUG THERAPY 12/05/2018 Ot Z85.21 PERSONAL HISTORY OF MALIGNANT NEOPLASM O 12/05/2018 Ot Z92.3 PERSONAL HISTORY OF IRRADIATION 12/05/2018 SAL DARLING MD Ot J43.9 EMPHYSEMA, UNSPECIFIED 12/05/2018 SAL DARLING MD Ot Z12.89 ENCOUNTER FOR SCREENING FOR MALIGNANT NE 12/05/2018 SAL DARLING MD Ot Z85.21 PERSONAL HISTORY OF MALIGNANT NEOPLASM O 12/05/2018 SAL DARLING MD Ot 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 12/05/2018 SAL DARLING MD Ot E03.9 HYPOTHYROIDISM, UNSPECIFIED 12/05/2018 SAL DARLING MD Ot G40.909 EPILEPSY, UNSP, NOT INTRACTABLE, WITHOUT 12/05/2018 SAL DARLING MD Ot I10 ESSENTIAL (PRIMARY) HYPERTENSION 12/05/2018 SAL DARLING MD Ot R97.0 ELEVATED CARCINOEMBRYONIC ANTIGEN [CEA] 12/05/2018 SAL DARLING MD Ot Z08 ENCNTR FOR FOLLOW-UP EXAM AFTER TRTMT FO 12/05/2018 SAL DARLING MD Ot Z79.899 OTHER COMPLEX CARE NURSE (CURRENT) DRUG THERAPY 12/05/2018 PHONG ISRAEL, SAL Ot Z85.21 PERSONAL HISTORY OF MALIGNANT NEOPLASM O 12/05/2018 PHONG ISRAEL, SAL Ot Z92.3 PERSONAL HISTORY OF IRRADIATION 12/13/2018 FERNANDA ISRAEL, DRAKE Atkinson Ot Z01.818 ENCOUNTER FOR OTHER PREPROCEDURAL EXAMIN Procedures There is no data. Results Test Result Range Automated blood complete blood count (hemogram) panel - 06/21/17 09:34 Blood leukocytes automated count (number/volume) 4.7 10*3/uL 4.3-11.0 Blood erythrocytes automated count (number/volume) 4.59 10*6/uL 4.35-5.85 Venous blood hemoglobin measurement (mass/volume) 14.9 g/dL 13.3-17.7 Blood hematocrit (volume fraction) 43 % 40-54 Automated erythrocyte mean corpuscular volume 93 [foz_us] 80-99 Automated erythrocyte mean corpuscular hemoglobin (mass per erythrocyte) 33 pg 25-34 Automated erythrocyte mean corpuscular hemoglobin concentration measurement (mass/volume) 35 g/dL 32-36 Automated erythrocyte distribution width ratio 13.8 % 10.0- 14.5 Automated blood platelet count (count/volume) 186 10*3/uL 130-400 Automated blood platelet mean volume measurement 9.2 [foz_us] 7.4-10.4 Comprehensive metabolic panel - 06/21/17 09:34 Serum or plasma sodium measurement (moles/volume) 141 mmol/L 135-145 Serum or plasma potassium measurement (moles/volume) 3.9 mmol/L 3.6-5.0 Serum or plasma chloride measurement (moles/volume) 105 mmol/L 98-107 Carbon dioxide 23 mmol/L 21-32 Serum or plasma anion gap determination (moles/volume) 13 mmol/L 5-14 Serum or plasma urea nitrogen measurement (mass/volume) 10 mg/dL 7-18 Serum or plasma creatinine measurement (mass/volume) 0.74 mg/dL 0.60-1.30 Serum or plasma urea nitrogen/creatinine mass ratio 14 NRG Serum or plasma creatinine measurement with calculation of estimated glomerular filtration rate > NRG Serum or plasma glucose measurement (mass/volume) 100 mg/dL 70-105 Serum or plasma calcium measurement (mass/volume) 9.6 mg/dL 8.5-10.1 Serum or plasma total bilirubin measurement (mass/volume) 0.4 mg/dL 0.1-1.0 Serum or plasma alkaline phosphatase measurement (enzymatic activity/volume) 89 U/L 40-136 Serum or plasma aspartate aminotransferase measurement (enzymatic activity/volume) 25 U/L 5-34 Serum or plasma alanine aminotransferase measurement (enzymatic activity/volume) 27 U/L 0-55 Serum or plasma protein measurement (mass/volume) 7.9 g/dL 6.4-8.2 Serum or plasma albumin measurement (mass/volume) 4.6 g/dL 3.2-4.5 Lipid 1996 panel - 06/21/17 09:34 Serum or plasma triglyceride measurement (mass/volume) 57 mg/dL <150 Serum or plasma cholesterol measurement (mass/volume) 217 mg/dL < 200 Serum or plasma cholesterol in HDL measurement (mass/volume) 88 mg/dL 40-60 Cholesterol in LDL [mass/volume] in serum or plasma by direct assay 114 mg/dL 1-129 Serum or plasma cholesterol in VLDL measurement (mass/volume) 11 mg/dL 5-40 THYROID STIMULATING HORMONE - 06/21/17 09:34 THYROID STIMULATING HORMONE 2.34 u[iU]/mL 0.35-4.94 DILANTIN (PHENYTOIN) - 06/21/17 09:34 DILANTIN PHEN 8.8 % 10.0-20.0 Encounters ACCT No. Visit Date/Time Discharge Status Pt. Type Provider Facility Loc./Unit Complaint [id number] 12/14/2018 09:55:00 12/14/2018 12:00:00 DIS Outpatient DRAKE MICHAEL MD [facility] SDC RIGHT EYE [id number] 12/12/2018 05:39:00 12/12/2018 13:12:00 DIS Outpatient DRAKE MICHAEL MD [facility] PREOP RIGHT CATARACT [id number] 11/29/2018 14:39:00 11/29/2018 16:07:00 DIS Emergency LUÍS MIRAMONTES [facility] ER FELL - L HAND PAIN [id number] 03/27/2018 12:10:00 03/27/2018 23:59:59 CLS Outpatient JUAN R ZHAO DO [facility] ENDO SCREENING [id number] 03/20/2018 05:33:00 03/21/2018 10:16:00 DIS Outpatient JUAN R ZHAO DO [facility] PREOP COLONOSCOPY [id number] 02/26/2018 00:58:00 02/26/2018 23:59:59 CLS Preadmit SAL DARLING MD [facility] ONC [id number] 01/25/2018 14:04:00 01/26/2018 00:01:00 DIS Outpatient SAL DARLING MD [facility] ONC [id number] 01/19/2018 08:42:00 01/19/2018 23:59:59 CLS Outpatient SAL DARLING MD [facility] RAD Z85.21 HX OF MALIGNANT NEOPLASM [id number] 10/11/2017 09:06:00 10/11/2017 23:59:59 CLS Outpatient SAL DARLING MD [facility] ONC [id number] 09/13/2017 13:28:00 09/13/2017 23:59:59 CLS Outpatient SAL DARLING MD [facility] RAD Z85.21 [id number] 09/13/2017 12:11:00 09/13/2017 23:59:59 CLS Outpatient SAL DARLING MD [facility] ONC [id number] 06/21/2017 08:58:00 06/21/2017 23:59:59 CLS Outpatient PRABHA GARZA DO [facility] LAB HYPERLIPIDEMIA,HYPOTHYROID [id number] 09/14/2016 12:40:00 09/14/2016 23:59:59 CLS Outpatient SAL DARLING MD [facility] ONC [id number] 09/23/2015 12:44:00 09/23/2015 23:59:59 CLS Outpatient SAL DARLING MD [facility] ONC [id number] 09/23/2014 12:51:00 09/23/2014 23:59:59 CLS Outpatient SAL DARLING MD [facility] ONC [id number] 08/20/2013 13:00:00 08/20/2013 23:59:59 [id number] 01/17/2018 12:41:00 Document Registration [id number] 01/02/2018 09:03:00 Document Registration [id number] 08/21/2012 12:59:00 Document Registration [id number] 08/23/2011 13:27:00 Document Registration [email or web address] 09/23/2014 12:52:12 ACT Document Registration
== END 2018-12-14 12:00 | disposition home or self-care (01) ==
LOC: SDC 09:55
PROVIDERS: ATTEND Specialist
DX: H25.11 Age-related nuclear cataract, right eye (principal); E78.00 Pure hypercholesterolemia, unspecified; G40.909 Epilepsy, unspecified, not intractable, without status epilepticus; I11.0 Hypertensive heart disease with heart failure; E78.5 Hyperlipidemia, unspecified; I50.9 Heart failure, unspecified; M06.9 Rheumatoid arthritis, unspecified; Z79.899 Other long term (current) drug therapy

== ENCOUNTER 2018-12-25 05:34 | Outpatient (CLI) | payer MEDICAID ==
[~2018-12-25] VITALS: Ht 165.1 cm; Wt 65.8 kg
== END 2018-12-26 12:20 | disposition home or self-care (01) ==
LOC: PREOP 05:34
PROVIDERS: ATTEND Specialist
DX: Z01.818 Encounter for other preprocedural examination (principal)

== ENCOUNTER 2018-12-28 06:48 | Day surgery (SDC) | payer MEDICAID ==
[~2018-12-28] VITALS: Ht 165.1 cm; Wt 65.8 kg
[~2018-12-28 06:48] MED LIST changes: -TIZA2TAB3 PO; +TIZA2TAB4 PO
[2018-12-28 06:50] VITALS: BP 170/87
--- OUTSIDE RECORDS SUMMARY | 2018-12-28 06:52 | XMS REPORT | Continuity of Care Document ---
Author Organization Unknown Address Unknown Phone Unavailable Allergies Active Description Code Type Severity Reaction Onset Reported/Identified Relationship to Patient Clinical Status Yes No Allergy Information Available [id number] Drug Allergy Unknown N/A 01/19/2018 Yes No Known Drug Allergies [id number] Drug Allergy Unknown N/A 12/26/2018 Medications There is no data. 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 10/06/2015 SAL DARLING MD Ot Z85.21 PERSONAL HISTORY [...] 09/14/2016 SAL DARLING MD Ot 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 09/14/2016 SAL DARLING MD Ot Z85.21 PERSONAL HISTORY OF MALIGNANT NEOPLASM O 09/23/2016 SAL DARLING MD Ot E03.9 HYPOTHYROIDISM, UNSPECIFIED 09/23/2016 SAL DARLING MD Ot G40.909 EPILEPSY, UNSP, NOT INTRACTABLE, WITHOUT 09/23/2016 SAL DARLING MD Ot Z08 ENCNTR FOR FOLLOW-UP EXAM AFTER TRTMT FO 09/23/2016 SAL DARLING MD Ot 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 09/23/2016 SAL DARLING MD [...] 06/21/2017 SAL DARLING MD Ot 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 06/21/2017 SAL DARLING MD Ot Z85.21 PERSONAL HISTORY OF MALIGNANT NEOPLASM O 06/21/2017 SAL DARLING MD Ot E03.9 HYPOTHYROIDISM, UNSPECIFIED 06/21/2017 SAL DARLING MD Ot G40.909 EPILEPSY, UNSP, NOT INTRACTABLE, WITHOUT 06/21/2017 SAL DARLING MD Ot Z08 ENCNTR FOR FOLLOW-UP EXAM AFTER TRTMT FO 06/21/2017 SAL DARLING MD Ot Z79.899 OTHER [facility] (CURRENT) DRUG THERAPY 06/21/2017 SAL DARLING MD Ot Z85.21 PERSONAL HISTORY OF MALIGNANT NEOPLASM O 06/22/2017 GELLENDER DO, PRABHA Gama Ot E03.9 HYPOTHYROIDISM, UNSPECIFIED 06/22/2017 GELLENDER DO, PRABHA A Ot E78.5 HYPERLIPIDEMIA, UNSPECIFIED 06/22/2017 GELLENDER DO, PRABHA A Ot I10 ESSENTIAL (PRIMARY) HYPERTENSION 06/22/2017 GELLENDER DO, PRABHA A Ot R56.9 UNSPECIFIED CONVULSIONS 07/04/2017 GELLENDER DO, PRABHA A Ot E03.9 HYPOTHYROIDISM, UNSPECIFIED 07/04/2017 GELLENDER DO, PRABHA A Ot E78.5 HYPERLIPIDEMIA, UNSPECIFIED 07/04/2017 GELLENDER DO, [...] 09/13/2017 SAL DARLING MD Ot 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 09/13/2017 SAL DARLING MD Ot Z85.21 PERSONAL HISTORY OF MALIGNANT NEOPLASM O 09/13/2017 SAL DARLING MD Ot E03.9 HYPOTHYROIDISM, UNSPECIFIED 09/13/2017 SAL DARLING MD Ot G40.909 EPILEPSY, UNSP, NOT INTRACTABLE, WITHOUT 09/13/2017 SAL DARLING MD Ot Z08 ENCNTR FOR FOLLOW-UP EXAM AFTER TRTMT FO 09/13/2017 SAL DARLING MD Ot 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 09/13/2017 SAL DARLING MD [...] 09/14/2017 SAL DARLING MD Ot 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 09/14/2017 SAL DARLING MD Ot Z85.21 PERSONAL HISTORY OF MALIGNANT NEOPLASM O 09/26/2017 SAL DARLING MD Ot E03.9 HYPOTHYROIDISM, UNSPECIFIED 09/26/2017 SAL DARLING MD Ot G40.909 EPILEPSY, UNSP, NOT INTRACTABLE, WITHOUT 09/26/2017 SAL DARLING MD Ot Z08 ENCNTR FOR FOLLOW-UP EXAM AFTER TRTMT FO 09/26/2017 SAL DARLING MD Ot 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 09/26/2017 SAL DARLING MD [...] 10/13/2017 SAL DARLING MD Ot Z79.899 OTHER [facility] (CURRENT) DRUG THERAPY 10/13/2017 SAL DARLING MD Ot Z85.21 PERSONAL HISTORY OF MALIGNANT NEOPLASM O 10/20/2017 SAL DARLING MD Ot E03.9 HYPOTHYROIDISM, UNSPECIFIED 10/20/2017 SAL DARLING MD Ot G40.909 EPILEPSY, UNSP, NOT INTRACTABLE, WITHOUT 10/20/2017 SAL DARLING MD Ot Z08 ENCNTR FOR FOLLOW-UP EXAM AFTER TRTMT FO 10/20/2017 SAL DARLING MD Ot Z79.899 OTHER [facility] (CURRENT) DRUG THERAPY 10/20/2017 SAL DARLING MD Ot Z85.21 PERSONAL HISTORY OF MALIGNANT NEOPLASM O 01/12/2018 Ot E03.9 HYPOTHYROIDISM, UNSPECIFIED 01/12/2018 Ot G40.909 EPILEPSY, UNSP, NOT INTRACTABLE, WITHOUT 01/12/2018 Ot Z08 ENCNTR FOR FOLLOW- UP EXAM AFTER TRTMT FO 01/12/2018 Ot Z79.899 OTHER [facility] (CURRENT) DRUG THERAPY 01/12/2018 Ot Z85.21 PERSONAL [...] V58.69 OTH MED,LT,CURRENT USE 01/19/2018 SAL DARLING MD Ot V67.1 RADIOTHERAPY FOLLOW-UP 01/19/2018 SAL DARLING MD Ot 244.9 HYPOTHYROIDISM NOS 01/19/2018 SAL DARLING MD Ot 345.90 EPILEPSY UNSPEC W/O MENTION INTRACTABLE 01/19/2018 SAL DARLING MD, Ot 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 01/19/2018 SAL DARLING MD, Ot 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 01/19/2018 SAL DARLING MD, Ot V58.69 OTH MED,LT,CURRENT USE 01/19/2018 SAL DARLING MD, Ot V67.1 RADIOTHERAPY FOLLOW-UP 01/19/2018 SAL DARLING MD, Ot E03.9 HYPOTHYROIDISM, UNSPECIFIED 01/19/2018 SAL DARLING MD, Ot G40.909 EPILEPSY, UNSP, NOT INTRACTABLE, WITHOUT 01/19/2018 SAL DARLING MD, Ot Z08 ENCNTR FOR FOLLOW-UP EXAM AFTER TRTMT FO 01/19/2018 ASL DARLING MD Ot 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 01/19/2018 SAL DARLING MD Ot Z85.21 PERSONAL HISTORY OF MALIGNANT NEOPLASM O 01/19/2018 SAL DARLING MD Ot E03.9 HYPOTHYROIDISM, UNSPECIFIED 01/19/2018 SAL DARLING MD, Ot G40.909 EPILEPSY, UNSP, NOT INTRACTABLE, WITHOUT 01/19/2018 SAL DARLING MD, Ot Z08 ENCNTR FOR FOLLOW-UP EXAM AFTER TRTMT FO 01/19/2018 SAL DARLING MD Ot Z79.899 OTHER [facility] (CURRENT) DRUG THERAPY 01/19/2018 SAL DARLING MD Ot Z85.21 PERSONAL HISTORY OF MALIGNANT NEOPLASM O 01/19/2018 GELLENDER DO, PRABHA A Ot E03.9 HYPOTHYROIDISM, UNSPECIFIED 01/19/2018 GELLENDER DO, PRABHA A Ot E78.5 HYPERLIPIDEMIA, UNSPECIFIED 01/19/2018 GELLENDER DO, PRABHA A Ot I10 ESSENTIAL (PRIMARY) HYPERTENSION 01/19/2018 GELLENDER DO, PRABHA A Ot R56.9 UNSPECIFIED CONVULSIONS 01/19/2018 SAL DARLING MD, Ot E03.9 HYPOTHYROIDISM, UNSPECIFIED 01/19/2018 XUN MD, CLOUD-ALBERT Ot G40.909 EPILEPSY, UNSP, NOT INTRACTABLE, WITHOUT 01/19/2018 SAL DARLING MD Ot Z08 ENCNTR FOR FOLLOW-UP EXAM AFTER TRTMT FO 01/19/2018 SAL DARLING MD Ot 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 01/19/2018 SAL DARLING MD [...] 01/19/2018 SAL DARLING MD Ot 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 01/19/2018 SAL DARLING MD Ot Z85.21 PERSONAL HISTORY OF MALIGNANT NEOPLASM O 01/19/2018 Ot E03.9 HYPOTHYROIDISM, UNSPECIFIED 01/19/2018 Ot G40.909 EPILEPSY, UNSP, NOT INTRACTABLE, WITHOUT 01/19/2018 Ot Z08 ENCNTR FOR FOLLOW- UP EXAM AFTER TRTMT FO 01/19/2018 Ot Z79.899 OTHER [facility] (CURRENT) DRUG THERAPY 01/19/2018 Ot Z85.21 PERSONAL HISTORY OF MALIGNANT NEOPLASM O 01/19/2018 Ot E03.9 HYPOTHYROIDISM, UNSPECIFIED 01/19/2018 Ot G40.909 EPILEPSY, UNSP, NOT INTRACTABLE, WITHOUT 01/19/2018 Ot I10 ESSENTIAL (PRIMARY) HYPERTENSION 01/19/2018 Ot Z08 ENCNTR FOR FOLLOW- UP EXAM AFTER TRTMT FO 01/19/2018 Ot Z79.899 OTHER [facility] (CURRENT) DRUG THERAPY 01/19/2018 Ot Z85.21 PERSONAL HISTORY OF MALIGNANT NEOPLASM O 01/19/2018 Ot Z92.3 PERSONAL HISTORY OF IRRADIATION 01/19/2018 Ot E03.9 HYPOTHYROIDISM, UNSPECIFIED 01/19/2018 Ot G40.909 EPILEPSY, UNSP, NOT INTRACTABLE, WITHOUT 01/19/2018 Ot I10 ESSENTIAL (PRIMARY) HYPERTENSION 01/19/2018 Ot Z08 ENCNTR FOR FOLLOW- UP EXAM AFTER TRTMT FO 01/19/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 01/19/2018 Ot Z85.21 PERSONAL HISTORY OF MALIGNANT NEOPLASM O 01/19/2018 Ot Z92.3 PERSONAL HISTORY OF IRRADIATION 01/23/2018 Ot E03.9 HYPOTHYROIDISM, UNSPECIFIED 01/23/2018 Ot G40.909 EPILEPSY, UNSP, NOT INTRACTABLE, WITHOUT 01/23/2018 Ot I10 ESSENTIAL (PRIMARY) HYPERTENSION 01/23/2018 Ot Z08 ENCNTR FOR FOLLOW- UP EXAM AFTER TRTMT FO 01/23/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 01/23/2018 Ot Z85.21 PERSONAL [...] ELEVATED CARCINOEMBRYONIC ANTIGEN [CEA] 01/26/2018 SAL DARLING MD Ot Z08 ENCNTR FOR FOLLOW-UP EXAM AFTER TRTMT FO 01/26/2018 SAL DARLING MD, Ot 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 01/26/2018 SAL DALRING MD Ot Z85.21 PERSONAL HISTORY OF MALIGNANT NEOPLASM O 01/26/2018 SAL DARLING MD Ot Z92.3 PERSONAL HISTORY OF IRRADIATION 01/26/2018 Ot E03.9 HYPOTHYROIDISM, UNSPECIFIED 01/26/2018 Ot G40.909 EPILEPSY, UNSP, NOT INTRACTABLE, WITHOUT 01/26/2018 Ot I10 ESSENTIAL (PRIMARY) HYPERTENSION 01/26/2018 Ot Z08 ENCNTR FOR FOLLOW- UP EXAM AFTER TRTMT FO 01/26/2018 Ot Z79.899 OTHER [facility] (CURRENT) DRUG THERAPY 01/26/2018 Ot Z85.21 PERSONAL [...] 02/28/2018 SAL DARLING MD Ot Z79.899 OTHER [facility] (CURRENT) DRUG THERAPY 02/28/2018 SAL DARLING MD [...] EXAM AFTER TRTMT FO 03/20/2018 SAL DARLING MD Ot 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 03/20/2018 SAL ADRLING MD Ot Z85.21 PERSONAL HISTORY OF MALIGNANT NEOPLASM O 03/20/2018 SAL DARLING MD Ot Z92.3 PERSONAL HISTORY OF IRRADIATION 03/21/2018 ZHAO DOJUAN R D Ot Z01.818 ENCOUNTER FOR OTHER PREPROCEDURAL EXAMIN 03/21/2018 ZHAO DOJUAN R Ot Z01.818 ENCOUNTER FOR OTHER PREPROCEDURAL EXAMIN [...] RADIOTHERAPY FOLLOW-UP 03/27/2018 SAL DARLING MD Ot E03.9 HYPOTHYROIDISM, UNSPECIFIED 03/27/2018 SAL DARLING MD Ot G40.909 EPILEPSY, UNSP, NOT INTRACTABLE, WITHOUT 03/27/2018 SAL DARLING MD Ot Z08 ENCNTR FOR FOLLOW-UP EXAM AFTER TRTMT FO 03/27/2018 SAL DARLING MD, Ot 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 03/27/2018 XUN MD, CLOUD-ALBERT Ot Z85.21 PERSONAL HISTORY OF MALIGNANT NEOPLASM O 03/27/2018 SAL DARLING MD Ot E03.9 HYPOTHYROIDISM, UNSPECIFIED 03/27/2018 SAL DARLING MD Ot G40.909 EPILEPSY, UNSP, NOT INTRACTABLE, WITHOUT 03/27/2018 SAL DARLING MD Ot Z08 ENCNTR FOR FOLLOW-UP EXAM AFTER TRTMT FO 03/27/2018 SAL DARLING MD Ot Z79.899 OTHER [facility] (CURRENT) DRUG THERAPY 03/27/2018 SAL DARLING MD [...] 03/27/2018 SAL DARLING MD, Ot 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 03/27/2018 SAL DARLING MD [...] 03/27/2018 SAL DARLING MD Ot Z79.899 OTHER [facility] (CURRENT) DRUG THERAPY 03/27/2018 SAL DARLING MD Ot Z85.21 PERSONAL HISTORY OF MALIGNANT NEOPLASM O 03/27/2018 Ot E03.9 HYPOTHYROIDISM, UNSPECIFIED 03/27/2018 Ot G40.909 EPILEPSY, UNSP, NOT INTRACTABLE, WITHOUT 03/27/2018 Ot Z08 ENCNTR FOR FOLLOW- UP EXAM AFTER TRTMT FO 03/27/2018 Ot Z79.899 OTHER [facility] (CURRENT) DRUG THERAPY 03/27/2018 Ot Z85.21 PERSONAL HISTORY OF MALIGNANT NEOPLASM O 03/27/2018 Ot E03.9 HYPOTHYROIDISM, UNSPECIFIED 03/27/2018 Ot G40.909 EPILEPSY, UNSP, NOT INTRACTABLE, WITHOUT 03/27/2018 Ot I10 ESSENTIAL (PRIMARY) HYPERTENSION 03/27/2018 Ot Z08 ENCNTR FOR FOLLOW- UP EXAM AFTER TRTMT FO 03/27/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 03/27/2018 Ot Z85.21 PERSONAL [...] ELEVATED CARCINOEMBRYONIC ANTIGEN [CEA] 03/27/2018 SAL DARLING MD Ot Z08 ENCNTR FOR FOLLOW-UP EXAM AFTER TRTMT FO 03/27/2018 SAL DARLING MD, Ot 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 03/27/2018 SAL DARLING MD Ot Z85.21 PERSONAL HISTORY OF MALIGNANT NEOPLASM O 03/27/2018 SAL DARLING MD Ot Z92.3 PERSONAL HISTORY OF IRRADIATION 03/27/2018 AMIRA ZHAO DOTT D Ot F17.220 NICOTINE DEPENDENCE, CHEWING TOBACCO, UN 03/27/2018 ZHAO DO JUAN R D Ot I10 ESSENTIAL (PRIMARY) HYPERTENSION 03/27/2018 ZHAO DO JUAN R D Ot R56.9 UNSPECIFIED CONVULSIONS 03/27/2018 ZHAO JUAN R D Ot Z12.11 ENCOUNTER FOR SCREENING FOR MALIGNANT NE 03/27/2018 AMIRA ZHAO DOTT D Ot Z79.899 OTHER [facility] (CURRENT) DRUG THERAPY 03/27/2018 ZHAO DO JUAN R D Ot 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, 03/28/2018 ZHAO JUAN R Ot F17.220 NICOTINE DEPENDENCE, CHEWING TOBACCO, UN 03/28/2018 ZHAO JUAN R D Ot I10 ESSENTIAL (PRIMARY) HYPERTENSION 03/28/2018 ZHAO JUAN R D Ot R56.9 UNSPECIFIED CONVULSIONS 03/28/2018 JUAN R ZHAO DO D Ot Z12.11 ENCOUNTER FOR SCREENING FOR MALIGNANT NE 03/28/2018 ZHAO DO JUAN R D Ot Z79.899 OTHER [facility] (CURRENT) DRUG THERAPY 03/28/2018 ZHAO JUAN R D Ot Z85.818 PRSNL HX [...] Z85.819 PR[facility] 12/04/2018 LUÍS MIRAMONTES Ot Z87.891 [...] 12/05/2018 SAL DARLING MD Ot 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 12/05/2018 SAL DARLING MD Ot Z85.21 PERSONAL HISTORY OF MALIGNANT NEOPLASM O 12/05/2018 SAL DARLING MD Ot E03.9 HYPOTHYROIDISM, UNSPECIFIED 12/05/2018 SAL DARLING MD Ot G40.909 EPILEPSY, UNSP, NOT INTRACTABLE, WITHOUT 12/05/2018 SAL DARLING MD Ot Z08 ENCNTR FOR FOLLOW-UP EXAM AFTER TRTMT FO 12/05/2018 SAL DARLING MD Ot 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 12/05/2018 SAL DARLING MD [...] 12/05/2018 SAL DARLING MD Ot 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 12/05/2018 SAL DARLING MD Ot Z85.21 PERSONAL HISTORY OF MALIGNANT NEOPLASM O 12/05/2018 SAL DARLING MD Ot R91.8 OTHER NONSPECIFIC ABNORMAL FINDING OF [place] 12/05/2018 SAL DARLING MD Ot Z85.89 PERSONAL HISTORY OF MALIGNANT NEOPLASM O 12/05/2018 SAL DARLING MD Ot E03.9 HYPOTHYROIDISM, UNSPECIFIED 12/05/2018 SAL DARLING MD Ot G40.909 EPILEPSY, UNSP, NOT INTRACTABLE, WITHOUT 12/05/2018 SAL DARLING MD Ot Z08 ENCNTR FOR FOLLOW-UP EXAM AFTER TRTMT FO 12/05/2018 SAL DARLING MD Ot Z79.899 OTHER [facility] (CURRENT) DRUG THERAPY 12/05/2018 SAL DARLING MD Ot Z85.21 PERSONAL HISTORY OF MALIGNANT NEOPLASM O 12/05/2018 Ot E03.9 HYPOTHYROIDISM, UNSPECIFIED 12/05/2018 Ot G40.909 EPILEPSY, UNSP, NOT INTRACTABLE, WITHOUT 12/05/2018 Ot Z08 ENCNTR FOR FOLLOW- UP EXAM AFTER TRTMT FO 12/05/2018 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 12/05/2018 Ot Z85.21 PERSONAL HISTORY OF MALIGNANT NEOPLASM O 12/05/2018 Ot E03.9 HYPOTHYROIDISM, UNSPECIFIED 12/05/2018 Ot G40.909 EPILEPSY, UNSP, NOT INTRACTABLE, WITHOUT 12/05/2018 Ot I10 ESSENTIAL (PRIMARY) HYPERTENSION 12/05/2018 Ot Z08 ENCNTR FOR FOLLOW- UP EXAM AFTER TRTMT FO 12/05/2018 Ot Z79.899 OTHER [facility] (CURRENT) DRUG THERAPY 12/05/2018 Ot Z85.21 PERSONAL [...] 12/05/2018 SAL DARLING MD Ot Z79.899 OTHER [facility] (CURRENT) DRUG THERAPY 12/05/2018 SAL DARLING MD Ot Z85.21 PERSONAL HISTORY OF MALIGNANT NEOPLASM O 12/05/2018 SAL DARLING MD Ot Z92.3 PERSONAL HISTORY OF IRRADIATION 12/13/2018 DRAKE MICHAEL MD Ot Z01.818 ENCOUNTER FOR OTHER PREPROCEDURAL EXAMIN 12/24/2018 DRAKE MICHAEL MD Ot E78.00 PURE HYPERCHOLESTEROLEMIA, UNSPECIFIED 12/24/2018 DRAKE MICHAEL MD Ot E78.5 HYPERLIPIDEMIA, UNSPECIFIED 12/24/2018 DRAKE MICHAEL MD Ot G40.909 EPILEPSY, UNSP, NOT INTRACTABLE, WITHOUT 12/24/2018 DRAKE MICHAEL MD Ot H25.11 AGE-RELATED NUCLEAR CATARACT, RIGHT EYE 12/24/2018 DRAKE MICHAEL MD Ot I11.0 HYPERTENSIVE HEART DISEASE WITH HEART FA 12/24/2018 DRAKE MICHAEL MD Ot I50.9 HEART FAILURE, UNSPECIFIED 12/24/2018 DRAKE MICHAEL MD Ot M06.9 RHEUMATOID ARTHRITIS, UNSPECIFIED 12/24/2018 DRAKE MICHAEL MD Ot Z79.899 OTHER [facility] (CURRENT) DRUG THERAPY 12/26/2018 DRAKE MICHAEL MD Ot Z01.818 ENCOUNTER FOR OTHER PREPROCEDURAL EXAMIN 12/26/2018 SAL DARLING MD Ot E03.9 HYPOTHYROIDISM, UNSPECIFIED 12/26/2018 SAL DARLING MD Ot G40.909 EPILEPSY, UNSP, NOT INTRACTABLE, WITHOUT 12/26/2018 SAL DARLING MD Ot I10 ESSENTIAL (PRIMARY) HYPERTENSION 12/26/2018 SAL DARLING MD Ot R97.0 ELEVATED CARCINOEMBRYONIC ANTIGEN [CEA] 12/26/2018 SAL DARLING MD Ot Z08 ENCNTR FOR FOLLOW-UP EXAM AFTER TRTMT FO 12/26/2018 SAL DARLING MD Ot 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 12/26/2018 SAL DARLING MD Ot Z85.21 PERSONAL HISTORY OF MALIGNANT NEOPLASM O 12/26/2018 SAL DARLING MD Ot Z92.3 PERSONAL HISTORY OF IRRADIATION 12/26/2018 DRAKE MICHAEL MD, Ot Z01.818 ENCOUNTER FOR OTHER PREPROCEDURAL EXAMIN [...] Status Pt. Type Provider Facility Loc./Unit Complaint [id number] 12/25/2018 05:34:00 12/26/2018 12:20:00 DIS Outpatient DRAKE MICHAEL MD [facility] PREOP CATARACT LEFT EYE [id number] 12/14/2018 09:55:00 12/14/2018 12:00:00 DIS Outpatient DRAKE MICHAEL MD [facility] SDC RIGHT EYE [id number] 12/12/2018 05:39:00 12/12/2018 13:12:00 DIS Outpatient DRAKE MICHAEL MD [facility] PREOP RIGHT CATARACT [id number] 11/29/2018 14:39:00 11/29/2018 16:07:00 DIS Emergency LUÍS MIRAMONTES [facility] ER FELL - L HAND PAIN [id number] 03/27/2018 12:10:00 03/27/2018 23:59:59 CLS Outpatient JUAN R ZHAO DO [facility] ENDO SCREENING [id number] 03/20/2018 05:33:00 03/21/2018 10:16:00 DIS Outpatient CECE JOSEPH JUAN R Graham [facility] PREOP COLONOSCOPY [id number] 02/26/2018 00:58:00 02/26/2018 23:59:59 CLS Preadmit SAL DARLING MD [facility] ONC [id number] 01/25/2018 14:04:00 01/26/2018 00:01:00 DIS Outpatient SAL DARLING MD [facility] ONC [id number] 01/19/2018 08:42:00 01/19/2018 23:59:59 CLS Outpatient SAL DARLING MD [facility] RAD Z85.21 HX OF MALIGNANT NEOPLASM [id number] 10/11/2017 09:06:00 10/11/2017 23:59:59 CLS Outpatient SAL DARLING MD [facility] ONC [id number] 09/13/2017 13:28:00 09/13/2017 23:59:59 CLS Outpatient SAL DARLING MD [facility] RAD Z85.21 [id number] 09/13/2017 12:11:00 09/13/2017 23:59:59 CLS Outpatient SAL DARLING MD [facility] ONC [id number] 06/21/2017 08:58:00 06/21/2017 23:59:59 CLS Outpatient PRABHA GARZA DO [facility] LAB HYPERLIPIDEMIA,HYPOTHYROID [id number] 09/14/2016 12:40:00 09/14/2016 23:59:59 CLS Outpatient SAL DARLING MD [facility] ONC [id number] 09/23/2015 12:44:00 09/23/2015 23:59:59 CLS Outpatient SAL DARLING MD [facility] ONC [id number] 09/23/2014 12:51:00 09/23/2014 23:59:59 CLS Outpatient SAL DARLING MD [facility] ONC [id number] 08/20/2013 13:00:00 08/20/2013 23:59:59 CLS Outpatient PHONG ISRAEL, SAL [facility] ONC [id number] 12/28/2018 08:30:00 SONG MICHAEL MD, DRAKE Atkinson [facility] SDC CATARACT LEFT EYE [id number] 01/17/2018 12:41:00 Document Registration [id number] 01/02/2018 09:03:00 Document Registration [id number] 08/21/2012 12:59:00 Document Registration [id number] 08/23/2011 13:27:00 Document Registration [id number] 09/23/2014 12:52:12 ACT Document Registration
[2018-12-28] MEDS ORDERED: LIDOCAINE PF 1% 2 ML AMP IR PRN (07:00)
[2018-12-28] MEDS ORDERED: POVIDONE (BETADINE) OPHTH SOLN 5% 30 ML OP ONE (07:00)
[2018-12-28] MEDS ORDERED: MOXIFLOXACIN OPHTH SOLN 5 MG/ML 0.3 ML SYRINGE OP ONE (07:00)
[2018-12-28] MEDS ORDERED: TIMOLOL MALEATE 0.5% 5 ML (TIMOPTIC) BTL OU PRN (07:00)
[2018-12-28] MEDS: TETRACAINE 0.5% OPHTH SOLN 4 ML BTL (SINGLE DOSE ONLY) OU PRN ×4 (07:04→07:23)
[2018-12-28] MEDS: CYCLOPENTOLATE 1% (CYCLOGYL) 2 ML DROPS OP SCH ×3 (07:11→07:23)
[2018-12-28] MEDS: PHENYLEPHRINE 10% OPHTH (NEO-SYN) 5 ML BTL OU SCH ×3 (07:11→07:23)
[2018-12-28] MEDS ORDERED: MIDAZOLAM 2 MG/2 ML (VERSED) VIAL ONE (07:40)
--- NOTE | 2018-12-28 07:40 | Ophthalmologist Pre-Op Note ---
Pre-Operative Progress Note H&P Reviewed The H&P was reviewed, patient examined and no changes noted. Date H&P Reviewed: Dec 28, 2018 Time H&P Reviewed: 07:40 Pre-Op Dx Cataract, Left Eye DRAKE MICHAEL MD Dec 28, 2018 07:40
--- NOTE | 2018-12-28 08:05 | Ophthalmology Operative Report ---
Cataract removal/placement IOL PREOPERATIVE DIAGNOSIS: Cataract Left Eye POSTOPERATIVE DIAGNOSIS: Cataract Left Eye PROCEDURE: Cataract removal and placement of posterior chamber implant, left eye SURGEON: Chago Michael ANESTHESIA: Topical with sedation COMPLICATIONS: None ESTIMATED BLOOD LOSS: Minimal DESCRIPTION OF PROCEDURE: After proper informed consent was obtained, the patient, a 68 male, was taken to the Operating Room and the left eye was anesthetized with tetracaine. The left eye was then prepped and draped in the usual manner. A wire lid speculum was placed. A paracentesis was made at the left hand position. Preservative free lidocaine was injected into the anterior chamber followed by viscoelastic. A clear corneal incision was made in the temporal position. A capsulorrhexis was preformed and the central nuclear and cortical material were removed. The posterior capsule was polished and an Reji 19.5 [id number] was placed into the capsular bag. The residual viscoelastic was aspirated and balanced saline solution was injected into the anterior chamber. Moxifloxacin was injected into the anterior chamber. The wound was checked and found to be water tight. The patient tolerated the procedure well without complications. CHAGO MICHAEL MD Dec 28, 2018 08:05
[2018-12-28 08:15] VITALS: BP 164/97
[2018-12-28] MEDS ORDERED: acetaZOLAMIDE ER 500 MG CAP (DIAMOX SEQUELS) PO ONE (08:30)
--- NOTE | 2018-12-28 10:55 | Anesthesia-General Post-Op ---
MAC Patient Condition Mental Status/LOC: Same as Preop Cardiovascular: Satisfactory Nausea/Vomiting: Absent Respiratory: Satisfactory Pain: Controlled Complications: Absent Post Op Complications Complications None Follow Up Care/Instructions Patient Instructions None needed. Anesthesiology Discharge Order Discharge Order Patient is doing well, no complaints, stable vital signs, no apparent adverse anesthesia problems. No complications reported per nursing. OREN ALLEN CRNA Dec 28, 2018 10:55
== END 2018-12-28 08:15 | disposition home or self-care (01) ==
LOC: SDC 06:48
PROVIDERS: ATTEND Specialist
DX: H25.12 Age-related nuclear cataract, left eye (principal); E78.00 Pure hypercholesterolemia, unspecified; R56.9 Unspecified convulsions; I11.0 Hypertensive heart disease with heart failure; M06.9 Rheumatoid arthritis, unspecified; Z82.49 Family history of ischemic heart disease and other diseases of the circulatory system; Z79.899 Other long term (current) drug therapy

== ENCOUNTER → 2019-01-23 | Outpatient (CLI) | payer MEDICAID | LOC: ONC 13:02 | PROVIDERS: ATTEND Internal Medicine Hematology & Oncology | DX: Z08 Encounter for follow-up examination after completed treatment for malignant neoplasm (principal); Z85.21 Personal history of malignant neoplasm of larynx; I10 Essential (primary) hypertension; E03.9 Hypothyroidism, unspecified; G40.909 Epilepsy, unspecified, not intractable, without status epilepticus; R97.0 Elevated carcinoembryonic antigen [CEA]; Z79.899 Other long term (current) drug therapy; Z92.3 Personal history of irradiation | CPT/HCPCS: 99213 ==

== ENCOUNTER → 2019-02-15 | Outpatient (CLI) | payer MEDICAID ==
--- NOTE | 2019-02-15 14:37 | Diagnostic Imaging Report ---
PROCEDURE: MRI left upper extremity without contrast. TECHNIQUE: Multiplanar, multisequence non contrast-enhanced MRI of the left upper extremity was accomplished. INDICATION: Ulnar-sided wrist pain. COMPARISON: Left hand radiographs of 11/29/2018. FINDINGS: Tendons: There is partial-thickness tearing and tenosynovitis of the extensor carpi ulnaris at the level of distal ulna. This corresponds to site of maximal pain. The distal insertion of the extensor carpi ulnaris remains intact. The remainder of the extensor tendons are intact and normal in position. Flexor tendons within the carpal tunnel are normal. No abnormal thickening of the flexor retinaculum. The flexor carpi radialis and flexor carpi ulnaris are normal. Intrinsic ligaments: Assessment of intrinsic ligaments of the wrist is limited without intra-articular contrast. Additionally, there is patient motion artifact on multiple of the sequences. Allowing for this, the TFC disc does not have displaced tear. The scapholunate dorsal and palmar bands appear intact. Bones: No fracture or osteonecrosis. Degenerative edema is present within the lunate, distal ulna and proximal capitate. Soft tissues: No soft tissue ganglion about the wrist. No abnormal mass effect on the median or ulnar nerve. IMPRESSION: 1. Tenosynovitis and partial-thickness tearing of the extensor carpi ulnaris at the level of distal ulna accounts for patient's ulnar-sided wrist pain. 2. 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 Dictated by: Dictated on workstation # [id number]
== END ==
LOC: RAD 02-05 14:40
PROVIDERS: ATTEND Nurse Practitioner
DX: S66.39 Other injury of extensor muscle, fascia and tendon of other and unspecified finger at wrist and hand level (principal); M19.032 Primary osteoarthritis, left wrist
CPT/HCPCS: 73221

== ENCOUNTER 2019-04-11 09:38 | Outpatient (CLI) | payer MEDICAID ==
[~2019-04-11] VITALS: Ht 165 cm; Wt 71.4 kg
[2019-04-11 10:07] VITALS: BP 142/81
== END 2019-04-11 10:27 | disposition home or self-care (01) ==
LOC: PREOP 09:38
PROVIDERS: ATTEND Orthopaedic Surgery
DX: Z01.818 Encounter for other preprocedural examination (principal)
CPT/HCPCS: 87081

== ENCOUNTER 2019-04-17 09:29 | Day surgery (SDC) | payer MEDICAID ==
--- NOTE | 2019-04-16 13:23 | HISTORY AND PHYSICAL ---
DATE OF SERVICE: ADMISSION HISTORY AND PHYSICAL DATE OF ADMISSION: 04/17/2019. This will be for outpatient surgery on 04/17/2019 for left extensor carpi ulnaris repair. HISTORY OF PRESENT ILLNESS: The patient is a 68-year-old gentleman with complaints of left wrist pain. He reports swelling and pain on the dorsal ulnar aspect of the wrist. He underwent an MRI, which reveals a partial thickness tear of the extensor carpi ulnaris. Due to functional impairment and failure to improve with conservative measures, the patient has elected to proceed with surgical intervention. He previously underwent an injection without relief. REVIEW OF SYSTEMS: No chest pain, no shortness of breath, no dysuria. PAST MEDICAL HISTORY: Throat cancer, hyperlipidemia, hypertension, hypothyroidism, seizure disorder. PAST SURGICAL HISTORY: Tracheotomy and lumbar spine. FAMILY HISTORY: Significant for Parkinson's and coronary artery disease. PRIMARY CARE PROVIDER: Ministerio Newberry DO. MEDICATIONS: Amlodipine, atenolol, atorvastatin, escitalopram, furosemide, levothyroxine, lisinopril, ____ and tizanidine. ALLERGIES: No known drug allergies. SOCIAL HISTORY: The patient denies alcohol and tobacco use. PHYSICAL EXAMINATION: GENERAL: The patient is well developed, well-nourished, in no acute distress. HEENT: Normocephalic and atraumatic. Pupils are equal, round, reactive to light. Oropharynx is clear. NECK: Supple, no lymphadenopathy. LUNGS: Clear to auscultation bilaterally. HEART: Regular rate and rhythm. ABDOMEN: Soft, nontender and nondistended. EXTREMITIES: The left wrist demonstrates swelling diffusely. He is tender to palpation over the extensor carpi ulnaris. He has pain with resisted wrist extension. IMPRESSION: Left extensor carpi ulnaris, partial thickness tear. PLAN: Left extensor carpi ulnaris repair. The risks, benefits, options, ramifications and recovery were discussed at length with the patient. He understands and wishes to proceed. Job ID: [id number] DocumentID: [id number] Dictated Date: 04/05/2019 10:47:40 Rn Advice Date: 04/05/2019 11:05:46 Dictated By: OAR TRIANA MD
[~2019-04-17] VITALS: Ht 165 cm; Wt 71.4 kg
[2019-04-17] VITALS (11 sets, daily range): BP systolic 107–153; BP diastolic 75–100
[~2019-04-17 09:29] MED LIST changes: +HYDROcodone/APAP 7.5 MG/325 MG (LORTAB, LORCET PLUS) TABLET PO PRN
[2019-04-17] MEDS ORDERED: LACTATED RINGERS 1,000 ML IV PRN (09:36)
[2019-04-17] MEDS ORDERED: ceFAZolin INJECTION 1,000 MG in WATER (STERILE) FOR INJECTION 10 ML IV ONE (09:45)
--- NOTE | 2019-04-17 11:00 | Progress Note-Pre Operative ---
Pre-Operative Progress Note H&P Reviewed The H&P was reviewed, patient examined and no changes noted. Date Seen by Provider: Apr 17, 2019 Time Seen by Provider: 10:59 Date H&P Reviewed: Apr 17, 2019 Time H&P Reviewed: 10:59 Pre-Operative Diagnosis: left ECU tendon tear ORA TRIANA MD Apr 17, 2019 11:00 POS
[2019-04-17] MEDS ORDERED: morphine PF (DURAMORPH) 10 MG/10 ML AMP ONE (11:01)
[2019-04-17] MEDS ORDERED: BUPIVACAINE 0.25% 30 ML (SENSORCAINE) VIAL ONE (11:02)
--- NOTE | 2019-04-17 11:02 | Progress Note-Post Operative ---
Post-Operative Progess Note Surgeon (s)/Tariff Compiler (s) Surgeon ORA TRIANA MD Tariff Compiler: Ced Crane Pre-Operative Diagnosis left ECU tendon tear Post-Operative Diagnosis left ECU tendon tear Procedure & Operative Findings Date of Procedure 04/17/19 Procedure Performed/Findings Left ECU tendon repair Anesthesia Type Axillary block Estimated Blood Loss Estimated blood loss (mL): minimal Specimens/Packing Specimens Removed none Packing: none ORA TRIANA MD Apr 17, 2019 11:02 POS
[2019-04-17] MEDS ORDERED: ONDANSETRON 4 MG/2 ML (SDV) Z0FRAN ONE (11:11)
[2019-04-17] MEDS ORDERED: DEXAMETHASONE 10 MG/ML (DECADRON) 1 ML VIAL ONE (11:11)
[2019-04-17] MEDS ORDERED: SEVOFLURANE (ULTANE) 15 ML INHAL SOLN ONE ×3 (11:11→12:51)
[2019-04-17] MEDS ORDERED: LIDOCAINE PF 2% 5 ML (XYLOCAINE) VIAL ONE (11:11)
[2019-04-17] MEDS ORDERED: proPOfol 200 MG/20 ML (DIPRIVAN) VIAL IV ONE (11:11)
[2019-04-17] MEDS ORDERED: fentaNYL INJECTION 100 MCG/2 ML AMP ONE (11:12)
[2019-04-17] MEDS ORDERED: MIDAZOLAM 2 MG/2 ML (VERSED) VIAL ONE (11:12)
[2019-04-17] MEDS ORDERED: morphine INJ 10 MG/ML 1ML (SYR OR VIAL) ONE (13:08)
[2019-04-17] MEDS: CATHETER FLUSH 10 ML SYR IV PRN (13:17)
[2019-04-17] MEDS ORDERED: morphine INJ 10 MG/ML 1ML (SYR OR VIAL) IVP ONE (14:45)
[2019-04-17] MEDS ORDERED: ONDANSETRON 4 MG/2 ML (SDV) Z0FRAN IVP PRN (14:45)
--- NOTE | 2019-04-17 14:46 | Anesthesia-General Post-Op ---
General Patient Condition Mental Status/LOC: Same as Preop Cardiovascular: Satisfactory Nausea/Vomiting: Absent Respiratory: Satisfactory Pain: Controlled Complications: Absent Post Op Complications Complications None Follow Up Care/Instructions Patient Instructions None needed. Anesthesia/Patient Condition Patient Condition Patient is doing well, no complaints, stable vital signs, no apparent adverse anesthesia problems. No complications reported per nursing. TAYLOR ANDREW CRNA Apr 17, 2019 14:46 POS
[2019-04-17] MEDS ORDERED: HYDR-3812 PO (14:51)
--- NOTE | 2019-04-17 15:15 | NUR ---
HAS BEEN ALERT, TAKING PO FLUIDS WITHOUT PROBLEM AND DENIES PAIN THROUGHOUT RECOVERY. ALLISON WRAPPED DSG REMAINS D/I TO LEFT HAND WITH SPLINT IN PLACE, CMS CHECKS WNL. REQUESTING DISMISSAL.
--- NOTE | 2019-04-17 17:36 | OPERATIVE REPORT ---
DATE OF SERVICE: 04/17/2019 PREOPERATIVE DIAGNOSIS: Left extensor carpi ulnaris tendon tear. POSTOPERATIVE DIAGNOSIS: Left extensor carpi ulnaris tendon tear. PROCEDURE: Left extensor carpi ulnaris tendon repair. SURGEON: Maciej Triana MD STEAM SHOVEL RUNNER: Ced Crane, who assisted throughout the procedure and closed the incision. ANESTHESIA: General endotracheal by Otilia Chavarria CRNA. TOURNIQUET TIME: 26 minutes at 250 mmHg. ESTIMATED BLOOD LOSS: Minimal. DRAINS: None. COMPLICATIONS: None. POSTOPERATIVE PLAN: Immobilization for four weeks. The patient was transferred to the recovery room awake and in stable condition. STATEMENT OF MEDICAL NECESSITY: The patient is a 68-year-old gentleman with complaints of left ulnar-sided wrist pain. He was tender over his ulnar styloid. An MRI revealed a longitudinal split of his extensor carpi ulnaris. Due to failure to improve with conservative measures, the patient elected to proceed with surgical intervention. DESCRIPTION OF PROCEDURE: After risks and benefits of procedure were discussed and questions were answered, an informed consent was signed and placed on chart. The operative site was confirmed in the preoperative holding area initialed by the surgeon. The patient was then transferred to the operating room. After adequate levels of general endotracheal anesthetic were obtained, a timeout was called, confirming the operative site. The left upper extremity was prepped and draped in the usual sterile fashion with arm elevated, tourniquet inflated to 250 mmHg. Longitudinal incision was made over the distal ulna. The underlying soft tissues were carefully dissected. The extensor carpi ulnaris compartment was opened and there was frayed tissue at the edges of the tendon. This was debrided. There was a split on the deep surface, which had the tendon into a flat surface. This was debrided and then tubularized with a 4-0 Vicryl in a running fashion. The wound was copiously irrigated. The roof of the compartment was reapproximated with 4-0 Vicryl in [id number] interrupted fashion. The wrist was taken through range of motion with no tethering of the tendon noted. The tourniquet was deflated. The wound was copiously irrigated and closed with 4-0 Vicryl in running subcuticular fashion. Soft dressing and brace were applied. The patient was transferred to the recovery room awake and in stable condition. Job ID: [id number] DocumentID: [id number] Dictated Date: 04/17/2019 13:02:04 [employer] Admin Date: 04/17/2019 17:36:00 Dictated By: MACIEJ TRIANA MD
== END 2019-04-17 15:30 | disposition home or self-care (01) ==
LOC: SDC 09:29
PROVIDERS: ATTEND Orthopaedic Surgery
DX: S66.212A Strain of extensor muscle, fascia and tendon of left thumb at wrist and hand level, initial encounter (principal); E78.5 Hyperlipidemia, unspecified; I10 Essential (primary) hypertension; E03.9 Hypothyroidism, unspecified; G40.909 Epilepsy, unspecified, not intractable, without status epilepticus; F17.220 Nicotine dependence, chewing tobacco, uncomplicated; F32.9 Major depressive disorder, single episode, unspecified; Z93.0 Tracheostomy status; Z79.899 Other long term (current) drug therapy

== ENCOUNTER → 2020-01-22 | Outpatient (CLI) | payer MEDICAID ==
[~2020-01-22] MED LIST changes: +ACHD5005 PO; -HYDROcodone/APAP 7.5 MG/325 MG (LORTAB, LORCET PLUS) TABLET PO PRN; -TIZA2TAB4 PO; +TIZA2TAB7 PO
[2020-01-22 13:22] LABS: BASOPHILS % (AUTO) 0 % (0-10); EOSINOPHILS # (AUTO) 0.3 10^3/uL (0.0-0.3); EOSINOPHILS % (AUTO) 3 % (0-10); HEMATOCRIT 41 % (40-54); HEMOGLOBIN 13.8 G/DL (13.3-17.7); LYMPHOCYTES # (AUTO) 2.6 X 10^3 (1.0-4.0); LYMPHOCYTES % (AUTO) 30 % (12-44); MEAN CORPUSCULAR HEMOGLOBIN 32 PG (25-34); MEAN CORPUSCULAR HGB CONC 34 G/DL (32-36); MEAN CORPUSCULAR VOLUME 93 FL (80-99); MEAN PLATELET VOLUME 9.2 FL (7.4-10.4); MONOCYTES # (AUTO) 1.1 X 10^3 (0.0-1.0); MONOCYTES % (AUTO) 13 % (0-12); NEUTROPHILS # (AUTO) 4.7 X 10^3 (1.8-7.8); NEUTROPHILS % (AUTO) 54 % (42-75); PLATELET COUNT 220 10^3/uL (130-400); RED CELL DISTRIBUTION WIDTH 14.1 % (10.0-14.5); WHITE BLOOD COUNT 8.7 10^3/uL (4.3-11.0)
[2020-01-22 13:38] LABS: ALANINE AMINOTRANSFERASE 19 U/L (0-55); ALBUMIN 4.5 GM/DL (3.2-4.5); ALKALINE PHOSPHATASE 124 U/L (40-136); BILIRUBIN,TOTAL 0.3 MG/DL (0.1-1.0); BUN/CREATININE RATIO 18; CALCIUM 9.9 MG/DL (8.5-10.1); CARBON DIOXIDE 25 MMOL/L (21-32); CHLORIDE 102 MMOL/L (98-107); CREATININE SERUM 0.73 MG/DL (0.60-1.30); GFR ESTIMATED > 60; GLUCOSE 102 MG/DL (70-105); POTASSIUM 3.9 MMOL/L (3.6-5.0); SODIUM 139 MMOL/L (135-145); TOTAL PROTEIN 7.7 GM/DL (6.4-8.2)
== END ==
LOC: ONC 13:11
PROVIDERS: ATTEND Internal Medicine Hematology & Oncology
DX: E03.9 Hypothyroidism, unspecified (principal); I10 Essential (primary) hypertension; R56.9 Unspecified convulsions; Z86.69 Personal history of other diseases of the nervous system and sense organs; Z98.890 Other specified postprocedural states; Z85.21 Personal history of malignant neoplasm of larynx
CPT/HCPCS: 80053; 84443; 85025; 99213

== ENCOUNTER → 2020-02-18 | Outpatient (CLI) | payer MEDICAID ==
--- NOTE | 2020-02-18 13:11 | Diagnostic Imaging Report ---
INDICATION: Fall. Time of exam 11:31 AM 3 views of the right wrist were obtained. Distal radius and ulna appear intact. There are subchondral cysts involving the navicular and capitate. No carpal bone fracture is seen. There are triscaphe and 1st CMC joint degenerative changes noted. Visualized metacarpals are intact. IMPRESSION: Degenerative changes. No acute bony abnormality is detected. Dictated by: Dictated on workstation # [id number]
== END ==
LOC: RAD 11:23
PROVIDERS: ATTEND Family Medicine
DX: M19.031 Primary osteoarthritis, right wrist (principal); W19.XXXA Unspecified fall, initial encounter
CPT/HCPCS: 73110

== ENCOUNTER → 2020-03-18 | Outpatient (CLI) | payer MEDICAID ==
--- NOTE | 2020-03-18 13:47 | Diagnostic Imaging Report ---
INDICATION: Right elbow pain post fall. TECHNIQUE: AP, oblique, and lateral views of the right elbow were obtained. FINDINGS: No overt fracture or acute bony abnormality is seen. There is degenerative change of the elbow joint with joint space narrowing and osteophyte formation. There is no overt joint effusion. IMPRESSION: There are degenerative findings of the right elbow with no acute bony abnormality. Dictated by: Dictated on workstation # [id number]
== END ==
LOC: RAD 11:06
PROVIDERS: ATTEND Family Medicine
DX: M19.021 Primary osteoarthritis, right elbow (principal); W19.XXXA Unspecified fall, initial encounter
CPT/HCPCS: 73080

== ENCOUNTER 2020-06-26 14:30 | Emergency (ER) | payer MEDICAID ==
[~2020-06-26] VITALS: Ht 164 cm; Wt 71.4 kg
[~2020-06-26 14:30] MED LIST changes: +AMLO-250 PO; -AMLO5TAB9 PO; -ESCI10TA55 PO; +ESCI10TA64 PO; +TIZA-169 PO; -TIZA2TAB7 PO
--- NOTE | 2020-06-26 14:43 | ED Cough/URI ---
General Chief Complaint: Respiratory Problems Stated Complaint: TROUBLE BREATHING Source: patient Exam Limitations: no limitations History of Present Illness Date Seen by Provider: Jun 26, 2020 Time Seen by Provider: 14:42 Initial Comments To ER with trouble breathing. History of laryngeal cancer with subsequent laryngectomy and tracheostomy. He has an open stoma without tube. He has been short of breath for a while now. Has been falling a lot but denies any weakness. He does report some pain down the right arm. Timing/Duration: constant Severity/Quality: moderate Associated Symptoms: cough Allergies and Home Medications Allergies Coded Allergies: No Known Drug Allergies (Unverified , 04/11/19) Home Medications Amlodipine Besylate 2.5 Mg Tablet, 2.5 MG PO DAILY, (Reported) Atenolol 100 Mg Tablet, 100 MG PO DAILY, (Reported) Atorvastatin Calcium 20 Mg Tablet, 20 MG PO HS, (Reported) Escitalopram Oxalate 10 Mg Tablet, 10 MG PO DAILY, (Reported) Furosemide 40 Mg Tablet, 40 MG PO DAILY, (Reported) Hydrocodone Bit/Acetaminophen 1 Each Tablet, 1 TAB PO Q4H Prescribed by: IVET PAEZ on 04/17/19 1451 Levothyroxine Sodium 150 Mcg Tablet, 150 MCG PO DAILY, (Reported) Lisinopril 40 Mg Tablet, 40 MG PO DAILY, (Reported) Phenytoin Sodium Extended 100 Mg Capsule, 400 MG PO DAILY, (Reported) Tizanidine HCl 2 Mg Tablet, 2 MG PO BID, (Reported) Patient Home Medication List Home Medication List Reviewed: Yes Review of Systems Review of Systems Constitutional: see HPI EENTM: see HPI Respiratory: see HPI Cardiovascular: no symptoms reported Genitourinary: no symptoms reported Musculoskeletal: no symptoms reported Skin: no symptoms reported Psychiatric/Neurological: No Symptoms Reported Hematologic/Lymphatic: No Symptoms Reported Past Wetfxkt-Hcznwl-Daziar Hx Patient Social History Type Used: Smokeless Tobacco Former Smoker, Quit: Apr 11, 1999 2nd Hand Smoke Exposure: No Recent Hopitalizations: No Immunizations Up To Date Tetanus Booster (TDap): Unknown Date of Influenza Vaccine: Mar 04, 2019 Seasonal Allergies Seasonal Allergies: No Past Medical History Surgeries: Yes (VOICE BOX REMOVED, BACK,CATARACTS) Respiratory: No Cardiac: Yes High Cholesterol, Hypertension Neurological: Yes (NO SEIZURES FOR 20YRS) Seizure Disorder Reproductive Disorders: No Sexually Transmitted Disease: No HIV/AIDS: No Genitourinary: No Gastrointestinal: No Musculoskeletal: Yes (FX LEFT WRIST FX November,) Chronic Back Pain Endocrine: Yes Hypothyroidsim HEENT: No (GLASSES) Loss of Vision: Denies Hearing Impairment: Denies Cancer: Yes (THROAT) Did You Recieve Any Treatments: Yes What Type of Treatment Did You: Chemotherapy, Radiation, Surgical Intervention Psychosocial: Yes Depression Integumentary: No Blood Disorders: No Adverse Reaction/Blood Tranf: No (N/A) Physical Exam Vital Signs - First Documented 06/26/20 14:39 Temp 38.0 Pulse 61 Resp 18 B/P (MAP) 191/97 (128) Pulse Ox 98 Capillary Refill : Height: 5'5.00" Weight: 145lbs. 0.0oz. 65.993433yf; 26.22 BMI Method:Stated General Appearance: WD/WN, no apparent distress Eyes: Bilateral Eye Normal Inspection, Bilateral Eye PERRL, Bilateral Eye EOMI Neck: non-tender, full range of motion Respiratory: no respiratory distress, no accessory muscle use, other (Very large amount of dried secretions removed with tweezers from the stoma. This resolved the loud airway noises and his difficulties with breathing.) Cardiovascular: regular rate, rhythm, no murmur Gastrointestinal: normal bowel sounds, non tender, soft Neurologic/Psychiatric: alert, normal mood/affect, oriented x 3 Skin: normal color, warm/dry Progress/Results/Core Measures Suspected Sepsis SIRS Temperature: Pulse: Respiratory Rate: Laboratory Tests 06/26/20 14:52: White Blood Count 6.6 Blood Pressure / Mean: Laboratory Tests 06/26/20 14:52: Creatinine 0.70, Platelet Count 228, Total Bilirubin 0.4 Results/Orders Lab Results Laboratory Tests Test 06/26/20 14:52 06/26/20 16:20 Range/Units White Blood Count 6.6 4.3-11.0 10^3/uL Red Blood Count 4.39 4.30-5.52 10^6/uL Hemoglobin 13.9 13.3-17.7 g/dL Hematocrit 41 40-54 % Mean Corpuscular Volume 93 80-99 fL Mean Corpuscular Hemoglobin 32 25-34 pg Mean Corpuscular Hemoglobin Concent 34 32-36 g/dL Red Cell Distribution Width 13.6 10.0-14.5 % Platelet Count 228 130-400 10^3/uL Mean Platelet Volume 9.2 9.0-12.2 fL Immature Granulocyte % (Auto) 0 % Neutrophils (%) (Auto) 63 42-75 % Lymphocytes (%) (Auto) 23 12-44 % Monocytes (%) (Auto) 12 0-12 % Eosinophils (%) (Auto) 2 0-10 % Basophils (%) (Auto) 1 0-10 % Neutrophils # (Auto) 4.1 1.8-7.8 10^3/uL Lymphocytes # (Auto) 1.5 1.0-4.0 10^3/uL Monocytes # (Auto) 0.8 0.0-1.0 10^3/uL Eosinophils # (Auto) 0.1 0.0-0.3 10^3/uL Basophils # (Auto) 0.0 0.0-0.1 10^3/uL Immature Granulocyte # (Auto) 0.0 0.0-0.1 10^3/uL Sodium Level 136 135-145 MMOL/L Potassium Level 3.3 L 3.6-5.0 MMOL/L Chloride Level 99 98-107 MMOL/L Carbon Dioxide Level 20 L 21-32 MMOL/L Anion Gap 17 H 5-14 MMOL/L Blood Urea Nitrogen 6 L 7-18 MG/DL Creatinine 0.70 0.60-1.30 MG/DL Estimat Glomerular Filtration Rate > 60 BUN/Creatinine Ratio 9 Glucose Level 96 70-105 MG/DL Calcium Level 9.1 8.5-10.1 MG/DL Corrected Calcium 8.9 8.5-10.1 MG/DL Magnesium Level 2.2 1.6-2.4 MG/DL Total Bilirubin 0.4 0.1-1.0 MG/DL Aspartate Amino Transf (AST/SGOT) 23 5-34 U/L Alanine Aminotransferase (ALT/SGPT) 13 0-55 U/L Alkaline Phosphatase 105 40-136 U/L Total Protein 7.6 6.4-8.2 GM/DL Albumin 4.3 3.2-4.5 GM/DL Urine Color YELLOW Urine Clarity CLEAR Urine pH 8.0 5-9 Urine Specific [place] 1.010 L 1.016-1.022 Urine Protein NEGATIVE NEGATIVE Urine Glucose (UA) NEGATIVE NEGATIVE Urine Ketones NEGATIVE NEGATIVE Urine Nitrite NEGATIVE NEGATIVE Urine Bilirubin NEGATIVE NEGATIVE Urine Urobilinogen 0.2 < = 1.0 MG/DL Urine Leukocyte Esterase NEGATIVE NEGATIVE Urine RBC (Auto) NEGATIVE NEGATIVE Urine RBC NONE /HPF Urine WBC NONE /HPF Urine Squamous Epithelial Cells RARE /HPF Urine Crystals NONE /LPF Urine Bacteria NEGATIVE /HPF Urine Casts NONE /LPF Urine Mucus NEGATIVE /LPF Urine Culture Indicated NO My Orders Orders - KB LEE APRN Cbc With Automated Diff (06/26/20 14:41) Comprehensive Metabolic Panel (06/26/20 14:41) Ua Culture If Indicated (06/26/20 14:41) Magnesium (06/26/20 14:41) Chest 1 View, Ap/Pa Only (06/26/20 14:41) Ct Chest W (06/26/20 15:39) Iohexol Injection (Omnipaque 350 Mg/Ml 1 (06/26/20 15:45) Received Contrast (Hold Metformin- Contr (06/26/20 15:45) Ns (Ivpb) (Sodium Chloride 0.9% Ivpb Bag (06/26/20 15:45) Medications Given in ED Current Medications Medications Dose Ordered Sig/Fortunato Route Start Time Stop Time Status Last Admin Dose Admin Iohexol 75 ml ONCE ONCE IV 06/26/20 15:45 06/26/20 16:01 DC 06/26/20 15:55 74 ML Sodium Chloride 100 ml ONCE ONCE IV 06/26/20 15:45 06/26/20 16:01 DC 06/26/20 15:56 80 ML Vital Signs/I&O 06/26/20 14:39 Temp 38.0 Pulse 61 Resp 18 B/P (MAP) 191/97 (128) Pulse Ox 98 Capillary Refill : Diagnostic Imaging Diagonstic Imaging: CT Comments NAME: [facility]LAN [facility] REC#: [id number] PT STATUS: REG ER : 1950 PHYSICIAN: KB LEE APRN ADMIT DATE: 06/26/20/ER Signed Date of Exam:06/26/20 CT CHEST W EXAMINATION: CT Chest with intravenous contrast. TECHNIQUE: Multiple contiguous axial images were obtained through the chest after the uneventful administration of intravenous contrast. All CT scans use one or more of the following dose optimizing techniques: automated exposure control, MA and/or KvP adjustment based on a patient size and exam type, or iterative reconstruction. HISTORY: Difficulty breathing. COMPARISON: None available. FINDINGS: There is a 9.3 x 11.4 cm mass in the right apex with an 8.8 cm craniocaudal length. It directly invades the right 1st rib and extends into the supraclavicular fossa. There are extensive internal calcifications with a morphology suggestive of both chondroid and osteoid matrix. It invades the mediastinum abutting the esophagus and exerting mass effect on the trachea and esophagus. Tracheostomy has been performed and the ostomy is widely patent. There is no axillary or supraclavicular lymphadenopathy. Heart size is normal. No pericardial effusion. Aorta is normal in caliber. Coronary arteries are severely calcified. Lungs are emphysematous. No edema or pneumonia. There is mild right base atelectasis. Limited views of the upper abdomen are unremarkable. IMPRESSION: 1. Large right upper lobe mass with destruction of the right 1st rib and internal calcifications with a morphology suggestive of chondroid and osteoid matrix. Differential is led by chondrosarcoma or osteosarcoma. Dictated by: Dictated on workstation # [id number] Dict: 06/26/20 1605 Trans: 06/26/201648 [facility] [id number] Interpreted by: NIXON WHEAT MD Electronically signed by: NIXON WHEAT MD 06/26/201648 Departure Communication (Admissions) I spoke with Dr. Garza. He will see the patient Monday morning and arrange follow-up with pulmonology and oncology. NAME: RUSLAN WE[facility]S [facility] REC#: [id number] PT STATUS: REG ER : 1950 PHYSICIAN: KB LEE TOBACCO SHAKER ADMIT DATE: 06/26/20/ER Signed Date of Exam:06/26/20 CT CHEST W EXAMINATION: CT Chest with intravenous contrast. TECHNIQUE: Multiple contiguous axial images were obtained through the chest after the uneventful administration of intravenous contrast. All CT scans use one or more of the following dose optimizing techniques: automated exposure control, MA and/or KvP adjustment based on a patient size and exam type, or iterative reconstruction. HISTORY: Difficulty breathing. COMPARISON: None available. FINDINGS: There is a 9.3 x 11.4 cm mass in the right apex with an 8.8 cm craniocaudal length. It directly invades the right 1st rib and extends into the supraclavicular fossa. There are extensive internal calcifications with a morphology suggestive of both chondroid and osteoid matrix. It invades the mediastinum abutting the esophagus and exerting mass effect on the trachea and esophagus. Tracheostomy has been performed and the ostomy is widely patent. There is no axillary or supraclavicular lymphadenopathy. Heart size is normal. No pericardial effusion. Aorta is normal in caliber. Coronary arteries are severely calcified. Lungs are emphysematous. No edema or pneumonia. There is mild right base atelectasis. Limited views of the upper abdomen are unremarkable. IMPRESSION: 1. Large right upper lobe mass with destruction of the right 1st rib and internal calcifications with a morphology suggestive of chondroid and osteoid matrix. Differential is led by chondrosarcoma or osteosarcoma. Dictated by: Dictated on workstation # [id number] Dict: 06/26/20 1605 Trans: 06/26/20 1649 [facility] [id number] Interpreted by: NIXON WHEAT MD Electronically signed by: NIXON WHEAT MD 06/26/20 1649 Impression Primary Impression: Malignant tumor of thorax Disposition: HOME, SELF-CARE Condition: Stable Departure-Patient Inst. Decision time for Depature: 17:09 Referrals: PRABHA GARZA DO (PCP/Family) Primary Care Physician Patient Instructions: NO INSTRUCTIONS GIVEN Add. Discharge Instructions: . Follow-up with Dr. Garza on Monday. Return to ER for any concerns. Return to ER for any worsening in the meantime. All discharge instructions reviewed with patient and/or family. Voiced understanding. Copy Copies To 1: WILLIAM MENESES DO; PRABHA GARZA DO; AUDREY ESTRADA PETER J APRN Jun 26, 2020 14:43
[2020-06-26 14:58] LABS: BASOPHILS % (AUTO) 1 % (0-10); EOSINOPHILS # (AUTO) 0.1 10^3/uL (0.0-0.3); EOSINOPHILS % (AUTO) 2 % (0-10); HEMATOCRIT 41 % (40-54); HEMOGLOBIN 13.9 g/dL (13.3-17.7); LYMPHOCYTES # (AUTO) 1.5 10^3/uL (1.0-4.0); LYMPHOCYTES % (AUTO) 23 % (12-44); MEAN CORPUSCULAR HEMOGLOBIN 32 pg (25-34); MEAN CORPUSCULAR HGB CONC 34 g/dL (32-36); MEAN CORPUSCULAR VOLUME 93 fL (80-99); MEAN PLATELET VOLUME 9.2 fL (9.0-12.2); MONOCYTES # (AUTO) 0.8 10^3/uL (0.0-1.0); MONOCYTES % (AUTO) 12 % (0-12); NEUTROPHILS # (AUTO) 4.1 10^3/uL (1.8-7.8); NEUTROPHILS % (AUTO) 63 % (42-75); PLATELET COUNT 228 10^3/uL (130-400); WHITE BLOOD COUNT 6.6 10^3/uL (4.3-11.0)
[2020-06-26 15:16] LABS: ALBUMIN 4.3 GM/DL (3.2-4.5); CHLORIDE 99 MMOL/L (98-107); POTASSIUM 3.3 MMOL/L (3.6-5.0); SODIUM 136 MMOL/L (135-145)
--- NOTE | 2020-06-26 15:16 | Diagnostic Imaging Report ---
EXAMINATION: Chest 1 view HISTORY: Cough COMPARISON: 09/13/2017 FINDINGS: There is a large right upper lobe mass with volume loss in the right hemithorax. Heart is mildly enlarged. No pleural effusion or pneumothorax. IMPRESSION: 1. Large right upper lobe mass most consistent with lung cancer, CT of the chest with contrast recommended. Dictated by: Dictated on workstation # [id number]
[2020-06-26 15:18] LABS: CALCIUM 9.1 MG/DL (8.5-10.1)
[2020-06-26 15:19] LABS: GLUCOSE 96 MG/DL (70-105); TOTAL PROTEIN 7.6 GM/DL (6.4-8.2)
[2020-06-26 15:20] LABS: CARBON DIOXIDE 20 MMOL/L (21-32)
[2020-06-26 15:21] LABS: BILIRUBIN,TOTAL 0.4 MG/DL (0.1-1.0)
[2020-06-26 15:22] LABS: ALKALINE PHOSPHATASE 105 U/L (40-136); GFR ESTIMATED > 60
[2020-06-26 15:23] LABS: BUN/CREATININE RATIO 9
[2020-06-26 15:25] LABS: ALANINE AMINOTRANSFERASE 13 U/L (0-55)
[2020-06-26 15:26] LABS: MAGNESIUM 2.2 MG/DL (1.6-2.4)
[2020-06-26] MEDS ORDERED: IOHEXOL 350 MG/ML 100 ML (OMNIPAQUE 350) VIAL IV ONE (15:45)
[2020-06-26] MEDS ORDERED: NS 100 ML (IVPB) BAG IV ONE (15:45)
[2020-06-26] MEDS ORDERED: HOLD METFORMIN - RECEIVED CONTRAST 20 ML VIAL IV SCH (15:45)
[2020-06-26 16:26] LABS: BILIRUBIN,URINE NEGATIVE (NEGATIVE); CLARITY,URINE CLEAR; COLOR,URINE YELLOW; GLUCOSE, URINE (UA) NEGATIVE (NEGATIVE); KETONES,URINE NEGATIVE (NEGATIVE); LEUKOCYTE ESTERASE ,URINE NEGATIVE (NEGATIVE); NITRITE,URINE NEGATIVE (NEGATIVE); PROTEIN,URINE NEGATIVE (NEGATIVE)
--- NOTE | 2020-06-26 16:27 | Diagnostic Imaging Report ---
EXAMINATION: CT Chest with intravenous contrast. TECHNIQUE: Multiple contiguous axial images were obtained through the chest after the uneventful administration of intravenous contrast. All CT scans use one or more of the following dose optimizing techniques: automated exposure control, MA and/or KvP adjustment based on a patient size and exam type, or iterative reconstruction. HISTORY: Difficulty breathing. COMPARISON: None available. FINDINGS: There is a 9.3 x 11.4 cm mass in the right apex with an 8.8 cm craniocaudal length. It directly invades the right 1st rib and extends into the supraclavicular fossa. There are extensive internal calcifications with a morphology suggestive of both chondroid and osteoid matrix. It invades the mediastinum abutting the esophagus and exerting mass effect on the trachea and esophagus. Tracheostomy has been performed and the ostomy is widely patent. There is no axillary or supraclavicular lymphadenopathy. Heart size is normal. No pericardial effusion. Aorta is normal in caliber. Coronary arteries are severely calcified. Lungs are emphysematous. No edema or pneumonia. There is mild right base atelectasis. Limited views of the upper abdomen are unremarkable. IMPRESSION: 1. Large right upper lobe mass with destruction of the right 1st rib and internal calcifications with a morphology suggestive of chondroid and osteoid matrix. Differential is led by chondrosarcoma or osteosarcoma. Dictated by: Dictated on workstation # [id number]
[2020-06-26 16:34] LABS: BACTERIA,URINE NEGATIVE /HPF; SQUAMOUS EPITHELIAL CELL,UR RARE /HPF
[2020-06-26 17:25] VITALS: BP 169/79
== END 2020-06-26 17:25 | disposition home or self-care (01) ==
LOC: EDUNIT# 14:30 → ER 14:33
DX: C76.1 Malignant neoplasm of thorax (principal); I10 Essential (primary) hypertension; E78.00 Pure hypercholesterolemia, unspecified; G89.29 Other chronic pain; M54.9 Dorsalgia, unspecified; E03.9 Hypothyroidism, unspecified; G40.909 Epilepsy, unspecified, not intractable, without status epilepticus; F32.9 Major depressive disorder, single episode, unspecified; Z79.890 Hormone replacement therapy; Z87.891 Personal history of nicotine dependence; Z79.891 Long term (current) use of opiate analgesic
CPT/HCPCS: 36415; 71045; 71260; 80053; 81000; 83735; 85025

== ENCOUNTER 2020-06-28 12:09 | Emergency (ER) | payer MEDICAID ==
[~2020-06-28] VITALS: Ht 165.1 cm; Wt 69.9 kg
[2020-06-28 12:23] VITALS: BP 167/87
--- NOTE | 2020-06-28 12:35 | ED General ---
General Chief Complaint: General Problems/Pain Stated Complaint: TROUBLE BREATHING Source of Information: Patient Exam Limitations: No Limitations History of Present Illness Date Seen by Provider: Jun 28, 2020 Time Seen by Provider: 12:32 Initial Comments To ER with trouble breathing. I saw him here a few days ago. He has a history of laryngeal cancer with laryngectomy and tracheostomy (without tube in it). He had some very noisy breathing, he had dried secretions in neck. He was found to have a large right upper lobe mass osteochondroma versus chondrosarcoma. He has follow-up scheduled with Dr. Garza tomorrow morning. He presents today with recurrent noisy breathing Timing/Duration: 4-6 Hours Associated Systoms: Denies Symptoms Allergies and Home Medications Allergies Coded Allergies: No Known Drug Allergies (Unverified , 04/11/19) Home Medications Amlodipine Besylate 2.5 Mg Tablet, 2.5 MG PO DAILY, (Reported) Atenolol 100 Mg Tablet, 100 MG PO DAILY, (Reported) Atorvastatin Calcium 20 Mg Tablet, 20 MG PO HS, (Reported) Escitalopram Oxalate 10 Mg Tablet, 10 MG PO DAILY, (Reported) Furosemide 40 Mg Tablet, 40 MG PO DAILY, (Reported) Hydrocodone Bit/Acetaminophen 1 Each Tablet, 1 TAB PO Q4H Prescribed by: IVET PAEZ on 04/17/19 1451 Levothyroxine Sodium 150 Mcg Tablet, 150 MCG PO DAILY, (Reported) Lisinopril 40 Mg Tablet, 40 MG PO DAILY, (Reported) Phenytoin Sodium Extended 100 Mg Capsule, 400 MG PO DAILY, (Reported) Tizanidine HCl 2 Mg Tablet, 2 MG PO BID, (Reported) Patient Home Medication List Home Medication List Reviewed: Yes Review of Systems Review of Systems Constitutional: see HPI EENTM: see HPI Respiratory: no symptoms reported Cardiovascular: no symptoms reported Genitourinary: no symptoms reported Musculoskeletal: no symptoms reported Skin: no symptoms reported Psychiatric/Neurological: No Symptoms Reported Hematologic/Lymphatic: No Symptoms Reported Past Clomzpz-Ymtuvy-Xwuagr Hx Patient Social History Type Used: Smokeless Tobacco Former Smoker, Quit: Apr 11, 1999 2nd Hand Smoke Exposure: No Recent Hopitalizations: No Immunizations Up To Date Tetanus Booster (TDap): Unknown Date of Influenza Vaccine: Mar 04, 2019 Seasonal Allergies Seasonal Allergies: No Past Medical History Surgeries: Yes (VOICE BOX REMOVED, BACK,CATARACTS) Respiratory: Yes (trach) Cardiac: Yes High Cholesterol, Hypertension Neurological: Yes (NO SEIZURES FOR 20YRS) Seizure Disorder Reproductive Disorders: No Sexually Transmitted Disease: No HIV/AIDS: No Genitourinary: No Gastrointestinal: No Musculoskeletal: Yes (FX LEFT WRIST FX November,) Chronic Back Pain Endocrine: Yes Hypothyroidsim HEENT: No (GLASSES) Loss of Vision: Denies Hearing Impairment: Denies Cancer: Yes (THROAT) Did You Recieve Any Treatments: Yes What Type of Treatment Did You: Chemotherapy, Radiation, Surgical Intervention Psychosocial: Yes Depression Integumentary: No Blood Disorders: No Adverse Reaction/Blood Tranf: No (N/A) Physical Exam Vital Signs Capillary Refill : Height, Weight, BMI Height: 5'5.00" Weight: 145lbs. 0.0oz. 65.344229ox; 26.00 BMI Method:Stated General Appearance: Mild Distress HEENT: PERRL/EOMI, TMs Normal Neck: Other (There were some dried mucus secretions around the tracheal stoma. These were not removed with curved hemostats and tweezers which resulted in immediate ease with breathing. A few of the deeper dried secretions were moistened with a few drops of sterile saline and then suctioned with a 14 Pashto suction catheter. This resolved his symptoms and breathing noise and effort returned to normal.) Respiratory: No Accessory Muscle Use, No Respiratory Distress Gastrointestinal: Non Tender, Soft Extremity: Normal Capillary Refill, Normal Inspection Neurologic/Psychiatric: Alert, Oriented x3 Skin: Normal Color, Warm/Dry Progress/Results/Core Measures Suspected Sepsis SIRS Temperature: Pulse: Respiratory Rate: Blood Pressure / Mean: Results/Orders Vital Signs/I&O Capillary Refill : Departure Impression Primary Impression: Malignant tumor of thorax Additional Impression: Mucous plugging of airway Disposition: HOME, SELF-CARE Condition: Stable Departure-Patient Inst. Decision time for Depature: 12:35 Referrals: PRABHA GARZA DO (PCP/Family) Primary Care Physician Patient Instructions: NO INSTRUCTIONS GIVEN Add. Discharge Instructions: 1. Follow-up with Dr. Garza tomorrow morning as scheduled 2. Return to ER for any concerns 3. All discharge instructions reviewed with patient and/or family. Voiced understanding. KB LEE APRN Jun 28, 2020 12:35
[2020-06-30] MEDS ORDERED: AMLO-250 PO (14:47)
[2020-07-01] MEDS ORDERED: PRED10TA22 PO (16:12)
== END 2020-06-28 12:47 | disposition home or self-care (01) ==
LOC: EDUNIT# 12:09 → ER 12:11
DX: C76.1 Malignant neoplasm of thorax (principal); I10 Essential (primary) hypertension; E78.00 Pure hypercholesterolemia, unspecified; F32.9 Major depressive disorder, single episode, unspecified; G40.909 Epilepsy, unspecified, not intractable, without status epilepticus; E03.9 Hypothyroidism, unspecified; Z87.891 Personal history of nicotine dependence; Z79.890 Hormone replacement therapy; Z79.899 Other long term (current) drug therapy; Z93.0 Tracheostomy status
CPT/HCPCS: 99281

== ENCOUNTER 2020-07-02 18:42 | Observation (INO) | payer MEDICAID ==
[~2020-07-02] VITALS: Ht 165 cm; Wt 69.8 kg
[~2020-07-02 18:42] MED LIST changes: +ESCI-2 PO; -ESCI10TA64 PO; -LISI40TA PO; +LISI40TA9 PO; +PRED10TA22 PO
[2020-07-02] MEDS ORDERED: aCETylcysteine 20% (MUCOMYST) 30ML SOLN VIAL ONE (18:53)
[2020-07-02] MEDS ORDERED: RT-ALBUTEROL/IPRATROPIUM 3 ML (DUONEB) VIAL INH ONE (19:00)
[2020-07-02] MEDS ORDERED: NS IV 1000 ML 1,000 ML IV SCH (19:00)
[2020-07-02] MEDS ORDERED: aCETylcysteine 20% (MUCOMYST) 30ML SOLN VIAL INH ONE (19:00)
--- NOTE | 2020-07-02 19:07 | ED Respiratory ---
General Chief Complaint: Respiratory Problems Stated Complaint: SOB / LOW O2 Source: patient Exam Limitations: no limitations History of Present Illness Date Seen by Provider: Jul 02, 2020 Time Seen by Provider: 18:40 Initial Comments Patient presents ER by private conveyance from home with chief complaint of choking, shortness of air. 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 He has a history of COPD known to Dr. Tejeda and Dr. Garza for primary care. No fevers or chills. He said multiple negative test for COVID-19 recently. Is not having any nausea vomiting chest pain diarrhea. He does not wear oxygen at home. He has a tracheostomy but does not use a trachea tube. His adds to the story that he has been having some tremors today which are new after being discharged from the hospital. He had a biopsy yesterday of the mass and expect results next week. He has not had imaging of his head and does not have a history of diabetes or other reasons to easily explain why he has had this new tremor that is intermittent, short jerking motions every 10 to 15 seconds. His also relates that he went home and did not have any kind of humidifiers, breathing treatments nebulizers etc. She is not sure what to do when this happens and states she does not feel comfortable treating the mucous plugs that present at his trachea. History of laryngeal cancer, hypothyroidism, hyperlipidemia, hypertension, depression resulting in tracheostomy. Right upper lobe lung mass pending biopsy results. Get a CT yesterday which did not demonstrate any pulmonary embolisms. Allergies and Home Medications Allergies Coded Allergies: No Known Drug Allergies (Unverified , 04/11/19) Home Medications Amlodipine Besylate 5 Mg Tablet, 5 MG PO DAILY, (Reported) Atenolol 100 Mg Tablet, 100 MG PO DAILY, (Reported) Atorvastatin Calcium 20 Mg Tablet, 20 MG PO HS, (Reported) Escitalopram Oxalate 10 Mg Tablet, 10 MG PO DAILY, (Reported) Furosemide 40 Mg Tablet, 40 MG PO DAILY, (Reported) Levothyroxine Sodium 150 Mcg Tablet, 150 MCG PO DAILY, (Reported) Lisinopril 40 Mg Tablet, 40 MG PO DAILY, (Reported) Phenytoin Sodium Extended 100 Mg Capsule, 400 MG PO DAILY, (Reported) TAKES 4 (100MG) CAPS Prednisone 10 Mg Tab.ds.pk, 10 MG PO DAILY Take 6 tabs(60mg)daily,decrease by 1 tab(10MG)daily. Prescribed by: YOCASTA ESCOBEDO on 07/01/20 1612 Tizanidine HCl 2 Mg Tablet, 2 MG PO BID, (Reported) Patient Home Medication List Home Medication List Reviewed: Yes Review of Systems Review of Systems Constitutional: No chills, No diaphoresis, No fever, No malaise, No weakness EENTM: No ear discharge, No ear pain Respiratory: see HPI, cough, phlegm, short of breath Gastrointestinal: No abdominal pain, No constipation, No diarrhea, No nausea, N o vomiting Genitourinary: No discharge, No dysuria Musculoskeletal: No back pain, No joint pain Skin: No pruritus, No rash Psychiatric/Neurological: Denies Anxiety, Denies Depressed All Other Systems Reviewed Negative Unless Noted: Yes Past Trtnnzu-Tcvkoi-Rtwoml Hx Patient Social History Alcohol Use: Denies Use Smoking Status: Former Smoker Type Used: Smokeless Tobacco Former Smoker, Quit: Apr 11, 1999 2nd Hand Smoke Exposure: No Recent Hopitalizations: No Immunizations Up To Date Tetanus Booster (TDap): Unknown Date of Influenza Vaccine: Mar 04, 2019 Seasonal Allergies Seasonal Allergies: No Past Medical History Surgeries: Yes (Tracheostomy, laryngectomy, BACK,CATARACTS) Tracheostomy Respiratory: Yes (trach) Cardiac: Yes High Cholesterol, Hypertension Neurological: Yes (NO SEIZURES FOR 20YRS) Seizure Disorder Reproductive Disorders: No Sexually Transmitted Disease: No HIV/AIDS: No Genitourinary: No Gastrointestinal: No Musculoskeletal: Yes (FX LEFT WRIST FX November,) Chronic Back Pain Endocrine: Yes Hypothyroidsim HEENT: No (GLASSES) Loss of Vision: Denies Hearing Impairment: Denies Cancer: Yes (THROAT) Did You Recieve Any Treatments: Yes What Type of Treatment Did You: Chemotherapy, Radiation, Surgical Intervention Psychosocial: Yes Depression Integumentary: No Blood Disorders: No Adverse Reaction/Blood Tranf: No (N/A) Physical Exam Vital Signs - First Documented 07/02/20 07/02/20 18:56 19:22 Temp 36.8 Pulse 106 Resp 24 B/P (MAP) 129/105 (113) Pulse Ox 98 O2 Delivery OxyMask O2 Flow Rate 10.00 FiO2 24 Capillary Refill : Height: 5'5.00" Weight: 145lbs. 0.0oz. 65.935625qw; 26.02 BMI Method:Stated General Appearance: severe distress, other (Disheveled) Eyes: Bilateral Eye Normal Inspection, Bilateral Eye PERRL, Bilateral Eye EOMI HEENT: PERRL/EOMI, normal ENT inspection, pharynx normal Neck: full range of motion, supple, normal inspection Respiratory: chest non-tender, respiratory distress, accessory muscle use Cardiovascular: normal peripheral pulses, regular rate, rhythm Gastrointestinal: normal bowel sounds, non tender, soft Neurologic/Psychiatric: no motor/sensory deficits, alert, other (Anxious affect; jerking tremors lasting about a second or 2 every 10 to 15 seconds whole body shakes.) Skin: warm/dry, cyanosis (Perioral and acrocyanosis) Progress/Results/Core Measures Suspected Sepsis SIRS Temperature: Pulse: Respiratory Rate: Laboratory Tests 07/02/20 20:10: White Blood Count 8.0 Blood Pressure / Mean: Laboratory Tests 07/02/20 20:10: Creatinine 0.71, Platelet Count 262, Total Bilirubin 0.4 Results/Orders Lab Results Laboratory Tests Test 07/02/20 19:07 07/02/20 20:10 Range/Units Blood Gas Puncture Site TO FOLLOW Blood Gas Patient Temperature 36.8 Arterial Blood pH 7.47 H 7.37-7.43 Arterial Blood Partial Pressure CO2 32 L 35-45 MMHG Arterial Blood Partial Pressure O2 108 H 79-93 MMHG Arterial Blood HCO3 23 23-27 MMOL/L Arterial Blood Total CO2 24.0 21.0-31.0 MMOL/L Arterial Blood Oxygen Saturation 97 94-100 % Arterial Blood Base Excess -0.3 -2.5-2.5 MMOL/L Juan Jose Test POS Blood Gas Ventilator Setting NO Blood Gas Inspired Oxygen 24% White Blood Count 8.0 4.3-11.0 10^3/uL Red Blood Count 4.29 L 4.30-5.52 10^6/uL Hemoglobin 13.5 13.3-17.7 g/dL Hematocrit 40 40-54 % Mean Corpuscular Volume 94 80-99 fL Mean Corpuscular Hemoglobin 32 25-34 pg Mean Corpuscular Hemoglobin Concent 34 32-36 g/dL Red Cell Distribution Width 13.7 10.0-14.5 % Platelet Count 262 130-400 10^3/uL Mean Platelet Volume 9.4 9.0-12.2 fL Immature Granulocyte % (Auto) 0 % Neutrophils (%) (Auto) 77 H 42-75 % Lymphocytes (%) (Auto) 9 L 12-44 % Monocytes (%) (Auto) 12 0-12 % Eosinophils (%) (Auto) 0 0-10 % Basophils (%) (Auto) 0 0-10 % Neutrophils # (Auto) 6.2 1.8-7.8 10^3/uL Lymphocytes # (Auto) 0.8 L 1.0-4.0 10^3/uL Monocytes # (Auto) 1.0 0.0-1.0 10^3/uL Eosinophils # (Auto) 0.0 0.0-0.3 10^3/uL Basophils # (Auto) 0.0 0.0-0.1 10^3/uL Immature Granulocyte # (Auto) 0.0 0.0-0.1 10^3/uL Sodium Level 135 135-145 MMOL/L Potassium Level 3.5 L 3.6-5.0 MMOL/L Chloride Level 98 98-107 MMOL/L Carbon Dioxide Level 20 L 21-32 MMOL/L Anion Gap 17 H 5-14 MMOL/L Blood Urea Nitrogen 9 7-18 MG/DL Creatinine 0.71 0.60-1.30 MG/DL Estimat Glomerular Filtration Rate > 60 BUN/Creatinine Ratio 13 Glucose Level 103 70-105 MG/DL Calcium Level 8.8 8.5-10.1 MG/DL Corrected Calcium 8.9 8.5-10.1 MG/DL Total Bilirubin 0.4 0.1-1.0 MG/DL Aspartate Amino Transf (AST/SGOT) 49 H 5-34 U/L Alanine Aminotransferase (ALT/SGPT) 29 0-55 U/L Alkaline Phosphatase 95 40-136 U/L C-Reactive Protein High Sensitivity 1.43 H 0.00-0.50 MG/DL Total Protein 7.0 6.4-8.2 GM/DL Albumin 3.9 3.2-4.5 GM/DL My Orders Orders - PASTOR PHAM Ed Iv/Invasive Line Start (07/02/20 18:54) Ns Iv 1000 Ml (Sodium Chloride 0.9%) (07/02/20 19:00) Albuterol/Ipra Inhalation Soln (Duoneb I (07/02/20 19:00) Svn Small Volume Nebulizer (07/02/20 18:54) Acetylcysteine (Rt Or Po Use) (Mucomyst (07/02/20 19:00) Acetylcysteine (Rt Or Po Use) (Mucomyst (07/02/20 18:53) Cbc With Automated Diff (07/02/20 19:04) Comprehensive Metabolic Panel (07/02/20 19:04) Hs C Reactive Protein (07/02/20 19:04) Chest 1 View, Ap/Pa Only (07/02/20 19:04) Arterial Blood Gas (07/02/20 19:07) Ct Head Wo (07/02/20 19:28) Dilantin (Phenytoin) (07/02/20 21:09) Medications Given in ED Current Medications Medications Dose Ordered Sig/Fortunato Route Start Time Stop Time Status Last Admin Dose Admin Acetylcysteine 2 ML ONCE ONCE INH 07/02/20 19:00 07/02/20 19:01 DC 07/02/20 19:02 5 ML Albuterol/ Ipratropium 3 ml ONCE ONCE INH 07/02/20 19:00 07/02/20 19:01 DC 07/02/20 19:02 3 ML Vital Signs/I&O 07/02/20 07/02/20 18:56 19:22 Temp 36.8 Pulse 106 Resp 24 B/P (MAP) 129/105 (113) Pulse Ox 98 98 O2 Delivery OxyMask Venturi Mask O2 Flow Rate 10.00 FiO2 24 Capillary Refill : Progress Note : Time: 19:06 Progress Note Patient was cyanotic and working for breath so 100% oxygen by simple mask was placed over his tracheostomy and using some saline to loosen up some thickened secretions at the tracheal office we were able to dislodge a large 1 x 4 cm mucous plug. We then put him on a DuoNeb and Mucomyst with 5 cc of normal saline nebulizer and a high flow air entrainment tracheal mask at 24%. Patient is maintaining 100% oxygen sats. We will get an ABG and some basic labs and chest x-ray. He says he is feeling much better and no longer working to breathe. After his breathing treatment is done were going to put him on humidified blow- by room air. Because of his 's concerns about his tremor and there is no mass in his chest we will get a CT of his head to rule out significant pathology. She says he also appears sunken in his cheeks and he does appear quite dehydrated so a liter of fluids has been ordered. Labs have been ordered. Patient is alert and oriented and does not have any neurologic deficits. Seizure? Vagal nerve comp ression question? Diagnostic Imaging Diagonstic Imaging: Xray Plain Films/CT/US/NM/MRI: chest Comments [facility] [place]. [place], [place] NAME: RUSLAN WELLS [facility] REC#: [id number] PT STATUS: REG ER : 1950 PHYSICIAN: PASTOR PHAM MD ADMIT DATE: 07/02/20/ER Signed Date of Exam:07/02/20 CHEST 1 VIEW, AP/PA ONLY EXAMINATION: Chest 1 view. HISTORY: Shortness of breath. Recent biopsy. COMPARISON: 07/01/2020. FINDINGS: Stable chest with stable appearance of the large mass in the right apex. No evidence of pneumothorax or pleural effusion. IMPRESSION: Stable appearance of the large mass in the right apex. No pneumothorax or pleural effusion status post biopsy. Dictated by: Dictated on workstation # [id number] Dict: 07/02/201938 Trans: 07/02/201945 [id number] Interpreted by: TAD ELLIS DO Electronically signed by: TAD ELLIS DO 07/02/201945 Reviewed: Reviewed by Me Diagonstic Imaging: CT Plain Films/CT/US/NM/MRI: head Comments [facility] [place]. [place], [place] NAME: RUSLAN WELLS [facility] REC#: [id number] PT STATUS: REG ER : 1950 PHYSICIAN: PASTOR PHAM MD ADMIT DATE: 07/02/20/ER Signed Date of Exam:07/02/20 CT HEAD WO EXAMINATION: CT head without contrast. TECHNIQUE: Multiple contiguous axial images were obtained through the brain without the use of intravenous contrast. All CT scans use one or more of the following dose optimizing techniques: automated exposure control, MA and/or KvP adjustment based on patient size and exam type or iterative reconstruction. HISTORY: Tremor. Shortness of breath. COMPARISON: None available. FINDINGS: No large acute territorial ischemia, mass, or hemorrhage. No midline shift or mass effect. The ventricles, cortical sulci and basilar cisterns are patent and unremarkable. The orbits are normal. Small amount of fluid is seen in the left maxillary sinus. Mastoid air cells are clear. No soft tissue abnormality is seen. No osseus lesions or fractures are seen. IMPRESSION: No large acute territorial ischemia, mass or hemorrhage. Dictated by: Dictated on workstation # [id number] Dict: 07/02/202017 Trans: 07/02/202022 [id number] Interpreted by: TAD ELLIS DO Electronically signed by: TAD ELLIS DO 07/02/202022 Reviewed: Reviewed by Me Departure Communication (Admissions) Time/Spoke to Admitting Phy: 21:10 Discussed the case with Dr. Logan and she agrees to observe the patient in the ICU tonight for further mucous plugging, suctioning, inhalers etc. Impression Primary Impression: Tracheostomy obstruction Additional Impressions: Multiple tracheobronchial mucus plugs Acute respiratory failure with hypoxia Mass of lung Disposition: ADMITTED INPATIENT Condition: Stable Admissions Decision to Admit Reason: Admit from ER (General) Decision to Admit/Date: Jul 02, 2020 Time/Decision to Admit Time: 21:00 Departure-Patient Inst. Referrals: PRABHA GARZA DO (PCP/Family) Primary Care Physician PASTOR PHAM Jul 02, 2020 19:07
[2020-07-02 19:42] LABS: ABG BASE EXCESS -0.3 MMOL/L (-2.5-2.5); ABG OXYGEN SATURATION 97 % (94-100); ABG PCO2 32 MMHG (35-45); ABG PH 7.47 (7.37-7.43); ABG PO2 108 MMHG (79-93)
[2020-07-02 19:43] LABS: ALLENS TEST POS
[2020-07-02 19:44] LABS: INSPIRED O2 24%; PATIENT TEMP 36.8; VENTILATOR NO
--- NOTE | 2020-07-02 19:46 | Diagnostic Imaging Report ---
EXAMINATION: Chest 1 view. HISTORY: Shortness of breath. Recent biopsy. COMPARISON: 07/01/2020. FINDINGS: Stable chest with stable appearance of the large mass in the right apex. No evidence of pneumothorax or pleural effusion. IMPRESSION: Stable appearance of the large mass in the right apex. No pneumothorax or pleural effusion status post biopsy. Dictated by: Dictated on workstation # [id number]
--- NOTE | 2020-07-02 20:20 | Diagnostic Imaging Report ---
EXAMINATION: CT head without contrast. TECHNIQUE: Multiple contiguous axial images were obtained through the brain without the use of intravenous contrast. All CT scans use one or more of the following dose optimizing techniques: automated exposure control, MA and/or KvP adjustment based on patient size and exam type or iterative reconstruction. HISTORY: Tremor. Shortness of breath. COMPARISON: None available. FINDINGS: No large acute territorial ischemia, mass, or hemorrhage. No midline shift or mass effect. The ventricles, cortical sulci and basilar cisterns are patent and unremarkable. The orbits are normal. Small amount of fluid is seen in the left maxillary sinus. Mastoid air cells are clear. No soft tissue abnormality is seen. No osseus lesions or fractures are seen. IMPRESSION: No large acute territorial ischemia, mass or hemorrhage. Dictated by: Dictated on workstation # [id number]
[2020-07-02 20:24] LABS: BASOPHILS % (AUTO) 0 % (0-10); EOSINOPHILS % (AUTO) 0 % (0-10); HEMATOCRIT 40 % (40-54); HEMOGLOBIN 13.5 g/dL (13.3-17.7); LYMPHOCYTES # (AUTO) 0.8 10^3/uL (1.0-4.0); LYMPHOCYTES % (AUTO) 9 % (12-44); MEAN CORPUSCULAR HEMOGLOBIN 32 pg (25-34); MEAN CORPUSCULAR HGB CONC 34 g/dL (32-36); MEAN CORPUSCULAR VOLUME 94 fL (80-99); MEAN PLATELET VOLUME 9.4 fL (9.0-12.2); MONOCYTES % (AUTO) 12 % (0-12); NEUTROPHILS # (AUTO) 6.2 10^3/uL (1.8-7.8); NEUTROPHILS % (AUTO) 77 % (42-75); PLATELET COUNT 262 10^3/uL (130-400)
[2020-07-02 20:44] LABS: ALANINE AMINOTRANSFERASE 29 U/L (0-55); ALBUMIN 3.9 GM/DL (3.2-4.5); ALKALINE PHOSPHATASE 95 U/L (40-136); BILIRUBIN,TOTAL 0.4 MG/DL (0.1-1.0); BUN/CREATININE RATIO 13; CALCIUM 8.8 MG/DL (8.5-10.1); CARBON DIOXIDE 20 MMOL/L (21-32); CHLORIDE 98 MMOL/L (98-107); CREATININE SERUM 0.71 MG/DL (0.60-1.30); GFR ESTIMATED > 60; GLUCOSE 103 MG/DL (70-105); POTASSIUM 3.5 MMOL/L (3.6-5.0); SODIUM 135 MMOL/L (135-145)
[2020-07-02 23:00] VITALS: BP 129/105
[2020-07-02] MEDS ORDERED: ONDANSETRON 4 MG/2 ML (SDV) Z0FRAN IV PRN (23:15)
[2020-07-02] MEDS ORDERED: ACETAMINOPHEN 325 MG TABLET PO PRN (23:15)
[2020-07-02] MEDS ORDERED: CATHETER FLUSH 10 ML SYR IV PRN (23:15)
[2020-07-02] MEDS ORDERED: RT-ALBUTEROL/IPRATROPIUM 3 ML (DUONEB) VIAL INH PRN (23:30)
[2020-07-03] MEDS ORDERED: RT-ALBUTEROL/IPRATROPIUM 3 ML (DUONEB) VIAL INH SCH (03:00)
[2020-07-03 03:09] LABS: BASOPHILS % (AUTO) 1 % (0-10); EOSINOPHILS # (AUTO) 0.1 10^3/uL (0.0-0.3); EOSINOPHILS % (AUTO) 1 % (0-10); HEMATOCRIT 38 % (40-54); HEMOGLOBIN 12.5 g/dL (13.3-17.7); LYMPHOCYTES # (AUTO) 1.2 10^3/uL (1.0-4.0); LYMPHOCYTES % (AUTO) 20 % (12-44); MEAN CORPUSCULAR HEMOGLOBIN 31 pg (25-34); MEAN CORPUSCULAR HGB CONC 33 g/dL (32-36); MEAN CORPUSCULAR VOLUME 94 fL (80-99); MEAN PLATELET VOLUME 9.5 fL (9.0-12.2); MONOCYTES # (AUTO) 0.8 10^3/uL (0.0-1.0); MONOCYTES % (AUTO) 13 % (0-12); NEUTROPHILS # (AUTO) 4.1 10^3/uL (1.8-7.8); NEUTROPHILS % (AUTO) 66 % (42-75); PLATELET COUNT 223 10^3/uL (130-400); WHITE BLOOD COUNT 6.2 10^3/uL (4.3-11.0)
[2020-07-03 03:25] LABS: ALBUMIN 3.6 GM/DL (3.2-4.5)
[2020-07-03 03:26] LABS: CHLORIDE 102 MMOL/L (98-107); POTASSIUM 3.4 MMOL/L (3.6-5.0); SODIUM 136 MMOL/L (135-145)
[2020-07-03 03:27] LABS: CALCIUM 8.4 MG/DL (8.5-10.1)
[2020-07-03 03:28] LABS: GLUCOSE 95 MG/DL (70-105); TOTAL PROTEIN 6.4 GM/DL (6.4-8.2)
[2020-07-03 03:29] LABS: CARBON DIOXIDE 22 MMOL/L (21-32)
[2020-07-03 03:30] LABS: BILIRUBIN,TOTAL 0.4 MG/DL (0.1-1.0)
[2020-07-03 03:31] LABS: ALKALINE PHOSPHATASE 88 U/L (40-136); PHOSPHORUS 3.7 MG/DL (2.3-4.7)
[2020-07-03 03:32] LABS: GFR ESTIMATED > 60
[2020-07-03 03:33] LABS: BUN/CREATININE RATIO 10
[2020-07-03 03:34] LABS: MAGNESIUM 2.3 MG/DL (1.6-2.4)
[2020-07-03 03:35] LABS: ALANINE AMINOTRANSFERASE 23 U/L (0-55)
--- NOTE | 2020-07-03 04:03 | Pulmonary Consultation ---
History of Present Illness History of Present Illness Date Seen by Provider: Jul 03, 2020 Time Seen by Provider: 04:00 Date of Admission Allergies and Home Medications Allergies Coded Allergies: No Known Drug Allergies (Unverified , 04/11/19) Home Medications Amlodipine Besylate 5 Mg Tablet, 5 MG PO DAILY, (Reported) Atenolol 100 Mg Tablet, 100 MG PO DAILY, (Reported) Atorvastatin Calcium 20 Mg Tablet, 20 MG PO HS, (Reported) Escitalopram Oxalate 10 Mg Tablet, 10 MG PO DAILY, (Reported) Furosemide 40 Mg Tablet, 40 MG PO DAILY, (Reported) Levothyroxine Sodium 150 Mcg Tablet, 150 MCG PO DAILY, (Reported) Lisinopril 40 Mg Tablet, 40 MG PO DAILY, (Reported) Phenytoin Sodium Extended 100 Mg Capsule, 400 MG PO DAILY, (Reported) TAKES 4 (100MG) CAPS Prednisone 10 Mg Tab.ds.pk, 10 MG PO DAILY Take 6 tabs(60mg)daily,decrease by 1 tab(10MG)daily. Prescribed by: YOCASTA ESCOBEDO on 07/01/20 1612 Tizanidine HCl 2 Mg Tablet, 2 MG PO BID, (Reported) Past Qdjmjwn-Klhiwb-Jwwyxa Hx Patient Social History Alcohol Use: Denies Use Smoking Status: Former Smoker Type Used: Smokeless Tobacco Former Smoker, Quit: Apr 11, 1999 2nd Hand Smoke Exposure: No Recent Infectious Disease Expo: No Recent Hopitalizations: No Have you traveled recently?: No Alcohol Use?: No Immunizations Up To Date Tetanus Booster (TDap): Unknown Date of Influenza Vaccine: Feb 26, 2020 Seasonal Allergies Seasonal Allergies: No Past Medical History Surgeries: Yes (Tracheostomy, laryngectomy, BACK,CATARACTS) Tracheostomy Respiratory: Yes (trach) Cardiac: Yes High Cholesterol, Hypertension Neurological: Yes (NO SEIZURES FOR 20YRS) Seizure Disorder Reproductive Disorders: No Sexually Transmitted Disease: No HIV/AIDS: No Genitourinary: No Gastrointestinal: No Musculoskeletal: Yes (FX LEFT WRIST FX November,) Chronic Back Pain Endocrine: Yes Hypothyroidsim HEENT: No (GLASSES) Loss of Vision: Denies Hearing Impairment: Denies Cancer: Yes (THROAT) Did You Recieve Any Treatments: Yes What Type of Treatment Did You: Chemotherapy, Radiation, Surgical Intervention Psychosocial: Yes Depression Integumentary: No Blood Disorders: No Adverse Reaction/Blood Tranf: No (N/A) Review of Systems Time Seen by Provider: 04:03 Sepsis Event Evaluation Height, Weight, BMI Height: 5'5.00" Weight: 145lbs. 0.0oz. 65.140099qb; 25.34 BMI Method:Stated Exam Exam Vital Signs Date Time Temp Pulse Resp B/P (MAP) Pulse Ox O2 Delivery O2 Flow Rate FiO2 07/03/20 00:00 58 18 131/67 (88) 97 Trach Collar 6.00 07/02/20 23:30 53 16 129/69 (89) 97 Trach Collar 6.00 07/02/20 23:00 36.8 106 98 24 07/02/20 23:00 61 12 142/70 (94) 98 Trach Collar 6.00 07/02/20 22:45 64 10 137/80 (99) 100 Trach Collar 6.00 07/02/20 22:30 61 12 126/75 (92) 98 Trach Collar 6.00 07/02/20 22:18 36.6 73 15 129/68 (88) 96 Trach Collar 6.00 07/02/20 22:18 Trach Collar 6.00 07/02/20 21:42 36.8 65 20 137/67 (113) 98 Venturi Mask 10.00 07/02/20 19:22 98 Venturi Mask 24 07/02/20 18:56 36.8 106 24 129/105 (113) 98 OxyMask 10.00 I & O 07/03/20 07:00 Intake Total 1150 ml Output Total 120 ml Balance 1030 ml Height & Weight Height: 5'5.00" Weight: 145lbs. 0.0oz. 65.052273uy; 25.34 BMI Method:Stated Capillary Refill: Less Than 3 Seconds Gastrointestinal: normal bowel sounds, non tender, soft Results Lab Laboratory Tests 07/02/20 20:10 07/03/20 02:53 Assessment/Plan Assessment/Plan Acute respiratory distress secondary to Mucous plugging -- -Duoneb with mucomyst Lung Mass -s/p CT bx of RUL mass -Cytology is pending COPDAE -Solumedrol 40Q 6 -Duoneb and mucomyst Hx of larygeal Ca WILLIAM MENESES DO Jul 03, 2020 04:03
[2020-07-03] MEDS ORDERED: POTASSIUM CL 10MEQ/50ML IVPB 50 ML IV SCH (06:00)
[2020-07-03] MEDS ORDERED: MAGNESIUM 1 GM/100 ML IVPB 100 ML IV SCH (06:00)
[2020-07-03] MEDS ORDERED: KCL 20 MEQ TAB (K-DUR) PO SCH (06:00)
[2020-07-03] MEDS: CATHETER FLUSH 10 ML SYR IV SCH ×3 (06:32→22:06)
[2020-07-03] MEDS: RT-ALBUTEROL/IPRATROPIUM 3 ML (DUONEB) VIAL INH SCH ×5 (07:01→22:51)
--- NOTE | 2020-07-03 07:27 | Diagnostic Imaging Report ---
INDICATION: Tracheostomy obstruction, shaking symptoms. TECHNIQUE: Single view chest 12:55 AM. CORRELATION STUDY: 07/02/2020 FINDINGS: Large mass right lung apex unchanged. There is mass effect and compression upon the trachea with leftward deviation. Right lung volume loss elevated right diaphragm. Minimal atelectasis or infiltrate suggested right lung base. Left lung may be developing minimal infiltrate at the perihilar region. Heart size upper limits of normal. IMPRESSION: 1. Large masslike density right lung apex with mass effect, compression and deviation of the trachea. Question early infiltrate or atelectasis at the right lung base and left midlung. Dictated by: Dictated on workstation # [id number]
[2020-07-03] MEDS ORDERED: KCL 20 MEQ TAB (K-DUR) PO ONE (08:00)
[2020-07-03] MEDS ORDERED: PRD10T PO (11:08)
[2020-07-03] MEDS: aCETylcysteine 20% (MUCOMYST) 30ML SOLN VIAL INH SCH ×2 (14:56→22:51)
[2020-07-03 19:50] VITALS: BP 124/87
[2020-07-04] VITALS (8 sets, daily range): BP systolic 130–183; BP diastolic 37–84
[2020-07-04] MEDS: RT-ALBUTEROL/IPRATROPIUM 3 ML (DUONEB) VIAL INH SCH ×4 (01:57→22:34)
[2020-07-04] MEDS: aCETylcysteine 20% (MUCOMYST) 30ML SOLN VIAL INH SCH ×4 (01:57→22:33)
[2020-07-04] MEDS: CATHETER FLUSH 10 ML SYR IV SCH ×3 (05:04→21:17)
[2020-07-04 06:48] LABS: BASOPHILS % (AUTO) 1 % (0-10); EOSINOPHILS # (AUTO) 0.1 10^3/uL (0.0-0.3); EOSINOPHILS % (AUTO) 2 % (0-10); HEMATOCRIT 39 % (40-54); LYMPHOCYTES # (AUTO) 0.8 10^3/uL (1.0-4.0); LYMPHOCYTES % (AUTO) 13 % (12-44); MEAN CORPUSCULAR HEMOGLOBIN 31 pg (25-34); MEAN CORPUSCULAR HGB CONC 33 g/dL (32-36); MEAN CORPUSCULAR VOLUME 94 fL (80-99); MEAN PLATELET VOLUME 9.6 fL (9.0-12.2); MONOCYTES # (AUTO) 0.8 10^3/uL (0.0-1.0); MONOCYTES % (AUTO) 12 % (0-12); NEUTROPHILS # (AUTO) 4.7 10^3/uL (1.8-7.8); NEUTROPHILS % (AUTO) 73 % (42-75); PLATELET COUNT 248 10^3/uL (130-400); WHITE BLOOD COUNT 6.5 10^3/uL (4.3-11.0)
[2020-07-04 06:59] LABS: CHLORIDE 105 MMOL/L (98-107); POTASSIUM 3.7 MMOL/L (3.6-5.0); SODIUM 140 MMOL/L (135-145)
[2020-07-04 07:00] LABS: CALCIUM 8.5 MG/DL (8.5-10.1)
[2020-07-04 07:01] LABS: GLUCOSE 95 MG/DL (70-105)
[2020-07-04 07:03] LABS: CARBON DIOXIDE 22 MMOL/L (21-32)
[2020-07-04 07:05] LABS: CREATININE SERUM 0.63 MG/DL (0.60-1.30); GFR ESTIMATED > 60; PHOSPHORUS 3.6 MG/DL (2.3-4.7)
[2020-07-04 07:06] LABS: BUN/CREATININE RATIO 8
[2020-07-04 07:07] LABS: MAGNESIUM 2.5 MG/DL (1.6-2.4)
[2020-07-04] MEDS: PHENYTOIN 100 MG (DILANTIN) CAP PO SCH (08:41)
[2020-07-04] MEDS ORDERED: hydrALAZINE (APESOLINE) 20 MG/ML VIAL IV PRN (11:15)
--- NOTE | 2020-07-04 11:15 | Progress Note - Hospitalist ---
Subjective HPI/CC On Admission Date Seen by Provider: Jul 04, 2020 Time Seen by Provider: 10:05 Subjective/Events-last exam He is feeling better today. He is not short of breath. He says the mucus plugging of his tracheostomy is improved. Objective Exam Vital Signs Vital Signs Date Time Temp Pulse Resp B/P (MAP) Pulse Ox O2 Delivery O2 Flow Rate FiO2 07/04/20 10:29 36.3 68 97 07/04/20 08:30 Trach Collar 4.00 07/04/20 08:00 16 168/77 (107) 07/04/20 06:58 28 Capillary Refill : Less Than 3 SecondsLess Than 3 Seconds General Appearance: No Apparent Distress, Chronically ill Neck: Other (tracheostomy in place with thick white sputum present) Respiratory: No Respiratory Distress, Other (wearing trach collar) Cardiovascular: Regular Rate, Rhythm, No Edema, No Murmur Gastrointestinal: Normal Bowel Sounds, Non Tender, Soft Extremity: Normal Inspection, Non Tender Neurologic/Psychiatric: Alert, Oriented x3 Skin: Normal Color, Warm/Dry Results/Procedures Lab Laboratory Tests 07/04/20 06:00 Patient resulted labs reviewed. Assessment/Plan Assessment and Plan Assess & Plan/Chief Complaint Acute respiratory failure with hypoxia Mucus plugging COPD exacerbation Solumedrol Mucomyst Duonebs Supplemental oxygen Lung mass s/p biopsy Awaiting path results HTN HLD Hypothyroidism Seizure disorder Continue home meds Goals of care discussion DNR DVT prophylaxis: Lovenox Diagnosis/Problems Diagnosis/Problems (1) Acute respiratory failure with hypoxia Status: Acute (2) Tracheostomy obstruction Status: Acute (3) Mass of upper lobe of right lung Status: Acute (4) HTN (hypertension) Status: Chronic (5) HLD (hyperlipidemia) Status: Chronic (6) Hypothyroidism Status: Chronic (7) Depression Status: Chronic (8) COPD exacerbation Status: Acute (9) Goals of care, counseling/discussion Status: Acute YOCASTA ESCOBEDO MD Jul 04, 2020 11:15
[2020-07-04] MEDS ORDERED: ACET200V4 INH (12:17)
[2020-07-04] MEDS: ENOXAPARIN 40 MG/0.4 ML (LOVENOX) SYR SC SCH (13:03)
[2020-07-04] MEDS ORDERED: NEBU1KIT3 MC (18:28)
[2020-07-05 00:17] VITALS: BP 132/64
[2020-07-05] MEDS: RT-ALBUTEROL/IPRATROPIUM 3 ML (DUONEB) VIAL INH SCH ×4 (03:14→21:44)
[2020-07-05] MEDS: aCETylcysteine 20% (MUCOMYST) 30ML SOLN VIAL INH SCH ×4 (03:14→21:44)
[2020-07-05 04:00] VITALS: BP 151/67
[2020-07-05] MEDS: CATHETER FLUSH 10 ML SYR IV SCH ×3 (06:39→20:23)
[2020-07-05] MEDS: LEVOTHYROXINE 150 MCG (LEVOTHROID) TAB PO SCH (06:39)
[2020-07-05 07:01] LABS: BASOPHILS % (AUTO) 1 % (0-10); EOSINOPHILS # (AUTO) 0.1 10^3/uL (0.0-0.3); EOSINOPHILS % (AUTO) 1 % (0-10); HEMATOCRIT 39 % (40-54); LYMPHOCYTES # (AUTO) 0.9 10^3/uL (1.0-4.0); LYMPHOCYTES % (AUTO) 13 % (12-44); MEAN CORPUSCULAR HEMOGLOBIN 31 pg (25-34); MEAN CORPUSCULAR HGB CONC 33 g/dL (32-36); MEAN CORPUSCULAR VOLUME 94 fL (80-99); MEAN PLATELET VOLUME 9.8 fL (9.0-12.2); MONOCYTES # (AUTO) 0.8 10^3/uL (0.0-1.0); MONOCYTES % (AUTO) 13 % (0-12); NEUTROPHILS # (AUTO) 4.8 10^3/uL (1.8-7.8); NEUTROPHILS % (AUTO) 72 % (42-75); PLATELET COUNT 253 10^3/uL (130-400); WHITE BLOOD COUNT 6.6 10^3/uL (4.3-11.0)
[2020-07-05 07:25] LABS: BUN/CREATININE RATIO 10; CALCIUM 8.8 MG/DL (8.5-10.1); CARBON DIOXIDE 20 MMOL/L (21-32); CHLORIDE 101 MMOL/L (98-107); CREATININE SERUM 0.61 MG/DL (0.60-1.30); GFR ESTIMATED > 60; GLUCOSE 96 MG/DL (70-105); MAGNESIUM 2.4 MG/DL (1.6-2.4); PHOSPHORUS 3.9 MG/DL (2.3-4.7); POTASSIUM 3.6 MMOL/L (3.6-5.0); SODIUM 137 MMOL/L (135-145)
[2020-07-05 08:00] VITALS: BP 139/72
[2020-07-05] MEDS: FUROSEMIDE 40 MG (LASIX) TAB PO SCH (08:51)
--- NOTE | 2020-07-05 08:51 | Diagnostic Imaging Report ---
INDICATION: Tracheostomy obstruction, shaking COMPARISON STUDY: Chest from 2 days ago. FINDINGS: Large mass in the right lung apex with deviation to the trachea appear stable. Remainder of the chest is clear. The heart and vascularity are normal. There is a minimal right pleural effusion. IMPRESSION: Stable chest with a large mass in the right lung apex and deviation of the trachea. Dictated by: Dictated on workstation # [id number]
[2020-07-05] MEDS: amLODIPine 10 MG (NORVASC) TAB PO SCH (08:52)
[2020-07-05] MEDS: lisINopril 40 MG (PRINIVIL) TABLET PO SCH (08:52)
[2020-07-05] MEDS: ATENOLOL 50 MG (TENORMIN) TAB PO SCH (08:52)
[2020-07-05] MEDS: PHENYTOIN 100 MG (DILANTIN) CAP PO SCH (08:52)
[2020-07-05] MEDS ORDERED: amLODIPine 5 MG (NORVASC) TAB PO SCH (09:00)
--- NOTE | 2020-07-05 10:37 | Progress Note - Hospitalist ---
Subjective HPI/CC On Admission Date Seen by Provider: Jul 05, 2020 Time Seen by Provider: 09:55 Subjective/Events-last exam He is feeling well. He has no complaints or concerns. He denies shortness of breath. He denies pain. Objective Exam Vital Signs Vital Signs Date Time Temp Pulse Resp B/P (MAP) Pulse Ox O2 Delivery O2 Flow Rate FiO2 07/05/20 09:00 Trach Collar 4.00 07/05/20 08:00 36.1 71 24 139/72 (94) 92 07/05/20 07:44 30 Capillary Refill : Less Than 3 SecondsLess Than 3 Seconds General Appearance: No Apparent Distress, Chronically ill Neck: Other (tracheostomy in place) Respiratory: No Respiratory Distress, Decreased Breath Sounds Cardiovascular: Regular Rate, Rhythm, No Edema, No Murmur Gastrointestinal: Normal Bowel Sounds, Non Tender, Soft Extremity: Normal Inspection, Non Tender, No Pedal Edema Neurologic/Psychiatric: Alert, Oriented x3, No Motor/Sensory Deficits, Normal Mood/Affect Skin: Normal Color, Warm/Dry Results/Procedures Lab Laboratory Tests 07/05/20 06:00 Patient resulted labs reviewed. Imaging: Reviewed Imaging Report Assessment/Plan Assessment and Plan Assess & Plan/Chief Complaint Acute respiratory failure with hypoxia Mucus plugging COPD exacerbation Solumedrol Mucomyst Duonebs Supplemental oxygen Lung mass s/p biopsy Awaiting path results HTN HLD Hypothyroidism Seizure disorder Continue home meds Goals of care discussion DNR DVT prophylaxis: Lovenox Diagnosis/Problems Diagnosis/Problems (1) Acute respiratory failure with hypoxia Status: Acute (2) Tracheostomy obstruction Status: Acute (3) Mass of upper lobe of right lung Status: Acute (4) HTN (hypertension) Status: Chronic (5) HLD (hyperlipidemia) Status: Chronic (6) Hypothyroidism Status: Chronic (7) Depression Status: Chronic (8) COPD exacerbation Status: Acute (9) Goals of care, counseling/discussion Status: Acute YOCASTA ESCOBEDO MD Jul 05, 2020 10:37
[2020-07-05 12:00] VITALS: BP 118/53
[2020-07-05] MEDS: ENOXAPARIN 40 MG/0.4 ML (LOVENOX) SYR SC SCH (12:26)
[2020-07-05 15:38] VITALS: BP 135/60
[2020-07-05 19:57] VITALS: BP 130/62
[2020-07-06 00:07] VITALS: BP 118/56
[2020-07-06] MEDS: RT-ALBUTEROL/IPRATROPIUM 3 ML (DUONEB) VIAL INH SCH ×2 (03:28→10:23)
[2020-07-06] MEDS: aCETylcysteine 20% (MUCOMYST) 30ML SOLN VIAL INH SCH ×2 (03:28→10:23)
[2020-07-06 04:00] VITALS: BP 146/65
--- NOTE | 2020-07-06 06:14 | Pulmonary Progress Note ---
Subjective Time Seen by a Provider: 06:13 Subjective/Events-last exam Cytology is still pending. Sepsis Event Evaluation Height, Weight, BMI Height: 5'5.00" Weight: 145lbs. 0.0oz. 65.743532yr; 25.34 BMI Method:Stated Exam Exam Vital Signs Date Time Temp Pulse Resp B/P (MAP) Pulse Ox O2 Delivery O2 Flow Rate FiO2 07/06/20 04:00 37.2 70 20 146/65 (92) 90 Trach Collar 15.00 30.00 07/06/20 03:28 94 Vapotherm 15.00 35 07/06/20 00:07 37.3 62 18 118/56 (76) 91 Trach Collar 15.00 30.00 07/05/20 21:44 90 Vapotherm 15.00 30 07/05/20 21:00 Trach Collar 15.00 30 07/05/20 19:57 37.0 64 18 130/62 (84) 92 Trach Collar 15.00 30.00 07/05/20 15:38 37.0 62 20 135/60 (85) 92 Trach Collar 15.00 30.00 07/05/20 14:30 92 Vapotherm 15.00 30 07/05/20 12:00 36.5 64 20 118/53 (74) 91 Trach Collar 15.00 30.00 07/05/20 09:00 Trach Collar 4.00 07/05/20 08:00 36.1 71 24 139/72 (94) 92 Trach Collar 6.00 07/05/20 07:44 95 Vapotherm 15.00 30 I & O 07/06/20 07:00 Intake Total 1340 ml Output Total 1300 ml Balance 40 ml Height & Weight Height: 5'5.00" Weight: 145lbs. 0.0oz. 65.330136ji; 25.34 BMI Method:Stated General Appearance: No Apparent Distress, Chronically ill Neck: Other (tracheostomy in place) Respiratory: No Respiratory Distress, Decreased Breath Sounds Cardiovascular: Regular Rate, Rhythm, No Edema, No Murmur Capillary Refill: Less Than 3 Seconds Gastrointestinal: normal bowel sounds, non tender, soft Extremity: Normal Inspection, Non Tender, No Pedal Edema Neurologic/Psychiatric: Alert, Oriented x3, No Motor/Sensory Deficits, Normal Mood/Affect Skin: Normal Color, Warm/Dry Results Lab Laboratory Tests 07/05/20 06:00 Assessment/Plan Assessment/Plan Acute respiratory distress secondary to Mucous plugging -- improved -Duoneb with mucomyst Lung Mass -s/p CT bx of RUL mass -Cytology is pending COPDAE -Solumedrol 40Q 6 -Duoneb and mucomyst Hx of larygeal Ca WILLIAM MENESES DO Jul 06, 2020 06:14
[2020-07-06] MEDS: LEVOTHYROXINE 150 MCG (LEVOTHROID) TAB PO SCH (06:18)
[2020-07-06] MEDS: CATHETER FLUSH 10 ML SYR IV SCH ×2 (06:18→12:58)
[2020-07-06 06:38] LABS: CHLORIDE 99 MMOL/L (98-107); POTASSIUM 3.7 MMOL/L (3.6-5.0); SODIUM 133 MMOL/L (135-145)
[2020-07-06 06:39] LABS: CALCIUM 8.7 MG/DL (8.5-10.1)
[2020-07-06 06:40] LABS: GLUCOSE 100 MG/DL (70-105)
[2020-07-06 06:41] LABS: CARBON DIOXIDE 21 MMOL/L (21-32)
[2020-07-06 06:43] LABS: CREATININE SERUM 0.64 MG/DL (0.60-1.30); GFR ESTIMATED > 60
[2020-07-06 06:44] LABS: BUN/CREATININE RATIO 11
[2020-07-06 08:00] VITALS: BP 152/69
--- NOTE | 2020-07-06 08:41 | Discharge Summary ---
Diagnosis/Chief Complaint Date of Admission Jul 02, 2020 at 21:20 Date of Discharge Primary Care Ministerio Garza DO Discharge Diagnosis (1) Acute respiratory failure with hypoxia Status: Acute (2) Tracheostomy obstruction Status: Acute (3) Mass of upper lobe of right lung Status: Acute (4) HTN (hypertension) Status: Chronic (5) HLD (hyperlipidemia) Status: Chronic (6) Hypothyroidism Status: Chronic (7) Depression Status: Chronic (8) COPD exacerbation Status: Acute (9) Goals of care, counseling/discussion Status: Acute Discharge Summary Discharge Physical Exam Allergies: Coded Allergies: No Known Drug Allergies (Unverified , 04/11/19) Vitals & I&Os Vital Signs Date Time Temp Pulse Resp B/P (MAP) Pulse Ox O2 Delivery O2 Flow Rate FiO2 07/07/20 10:19 90 88 07/06/20 12:00 37.1 28 128/68 (88) Trach Collar 6.00 07/06/20 10:23 35 General Appearance: No Apparent Distress, Chronically ill Cardiovascular: Regular Rate, Rhythm, No Murmur Gastrointestinal: Normal Bowel Sounds, Soft Neurologic/Psychiatric: Alert, Oriented x3 Hospital Course Pt was admitted due to mucus plugging of her tracheostomy and acuter respiratory distress. He was started on mucomyst and was doing well with this in regards to mucus plugging but imaging revealed a RUL mass. He underwent biopsy of this given appearance and concern for malignancy with history of laryngeal cancer. The pathology results are still currently pending and he is aware of that. I sammy led and updated his primary care doctor of this who will see him this week to follow up. Labs (last 24 hrs) Microbiology 07/02/20 MRSA Screen - Final, Complete MRSA not isolated Patient resulted labs reviewed. Pending Labs Imaging: Reviewed Imaging Report Discussion & Recommendations Discharge Planning: >30 minutes discharge planning Discharge Home Medications: Active Scripts Active Compact Compressor Nebulizer (Nebulizer) 1 Each Each Each MC UD Acetylcysteine 200 Mg/1 Ml Vial 5 Ml INH TID 30 Days Reported Prednisone 10 Mg Tab Mg PO DAILY TAPER DOSE- 6 TABS ON DAY 1 AND THEN DECREASE BY 1 TAB EACH DAY UNTIL ALL TAKEN FILLED 07-01-2020 #21/6 DAY SUPPLY Amlodipine Besylate 5 Mg Tablet 5 Mg PO DAILY Escitalopram Oxalate 10 Mg Tablet 10 Mg PO DAILY Furosemide 40 Mg Tablet 40 Mg PO DAILY Atorvastatin Calcium 20 Mg Tablet 20 Mg PO HS Tizanidine HCl 2 Mg Tablet 2 Mg PO BID Phenytoin Sodium Extended 100 Mg Capsule 400 Mg PO DAILY TAKES 4 (100MG) CAPS Lisinopril 40 Mg Tablet 40 Mg PO DAILY Levothyroxine Sodium 150 Mcg Tablet 150 Mcg PO DAILY Atenolol 100 Mg Tablet 100 Mg PO DAILY Instructions to patient/family Please see electronic discharge instructions given to patient. Copy Copies To 1: MINISTERIO GARZA KATELYN M MD Jul 06, 2020 08:41
[2020-07-06] MEDS: PHENYTOIN 100 MG (DILANTIN) CAP PO SCH (09:18)
[2020-07-06] MEDS: lisINopril 40 MG (PRINIVIL) TABLET PO SCH (09:18)
[2020-07-06] MEDS: amLODIPine 10 MG (NORVASC) TAB PO SCH (09:18)
[2020-07-06] MEDS: FUROSEMIDE 40 MG (LASIX) TAB PO SCH (09:19)
[2020-07-06] MEDS: ATENOLOL 50 MG (TENORMIN) TAB PO SCH (09:19)
--- NOTE | 2020-07-06 09:32 | D/C HH Face to Face Order ---
D/C Face to Face Orders Instructions for Patient Via [facility], Patient Instructions/FollowUp: Please continue to take your medications as written. Please follow up with Dr Newberry as scheduled on . Physician to follow Patient: Dr Newberry Discharge Diet for Home: No Restrictions Patient Data-Allergies,Ht & Wt Patient Allergies: Coded Allergies: No Known Drug Allergies (Unverified , 04/11/19) Height (Feet): 5 Height (Inches): 5.00 Weight (Pounds): 145 Weight (Ounces): 0.0 Home Health Need/Face to Face Date of Face to Face: Jul 06, 2020 Clinical Findings: Generalized weakness and fatigue, Shortness of breath I have seen Pt [id number]: Yes Discharged To: Home Diagnosis/Conditions: Chronic respiratory failure, trach dependent Patient is Homebound due to: Shortness of breath/distress Homebound Status Due to the above stated illness, injury or surgical procedure (medical condition or diagnosis) and associated clinical findings, the patient is homebound because of his/her inability to leave home except with aid of a supportive device and/or person AND leaving the home requires a considerable and taxing effort or is medically contraindicated. Pt req the following assistanc: Aid of another person, [facility] Nursing Orders Home Health Services Order: Nursing Services, Top Dyeing Machine Tender-Evaluate & Treat, Physical Therapy-Evaluate & Treat Home Health Infusion Therapy Line Start Date: Jul 02, 2020 Therapy Orders Therapy Orders: OT (must have SN or PT order), Physical Therapy Therapy Specific Orders: Eval assistive deivces, Teach enviro modifications /safety, Gait training, Increase strength/endurance Certify Stmt I certify that this patient is under my care and that I, a nurse practitioner or a physician; a warehouse administrative assistant working with me, had a face to face encounter that - meets the physician face to face encounter requirements with this patient as dated. LARA MUNSON MD Jul 06, 2020 09:32
[2020-07-06 12:00] VITALS: BP 128/68
[2020-07-06] MEDS: ENOXAPARIN 40 MG/0.4 ML (LOVENOX) SYR SC SCH (12:58)
== END 2020-07-06 14:15 | disposition home health service (06) ==
LOC: EDUNIT# 18:42 → ER 18:43 → ICU 21:20 → 4TH 07-03 18:14
PROVIDERS: ADMIT Internal Medicine; ATTEND Internal Medicine
DX: J96.01 Acute respiratory failure with hypoxia (principal); I10 Essential (primary) hypertension; E78.5 Hyperlipidemia, unspecified; E03.9 Hypothyroidism, unspecified; F32.9 Major depressive disorder, single episode, unspecified; J44.1 Chronic obstructive pulmonary disease with (acute) exacerbation; J95.03 Malfunction of tracheostomy stoma; E78.00 Pure hypercholesterolemia, unspecified; G89.29 Other chronic pain; Z79.899 Other long term (current) drug therapy; Z87.891 Personal history of nicotine dependence
CPT/HCPCS: 36415; 70450; 71045; 80048; 80053; 80185; 82805; 83735; 84100; 84145; 85025; 86141; 87081; 94640; 94760; 94761; 99291; G0378

== ENCOUNTER 2020-07-18 14:28 | Inpatient (IN) | payer MEDICAID ==
[~2020-07-18] VITALS: Ht 165.1 cm; Wt 56.8 kg
[~2020-07-18 14:28] MED LIST changes: +ACET200V4 INH; +NEBU1KIT3 MC; +PRD10T PO
--- NOTE | 2020-07-18 15:37 | ED Back Pain ---
General Chief Complaint: General Problems/Pain Stated Complaint: L SIDED PAIN, BACK PAIN, DIFFICULTY STANDING Nursing Triage Note: TO ED PER W/C WITH TRACH [address] AT 3 L POA WITH PATIENT REPORTS WAS DISCHARGE 1 WEEK AGO FROM HAVING TRACH ISSUES WHILE IN HOSPITAL FOUND MASS IN R LUNG HAD BIOPSY THAT SHOWED CANCER. IS TO HAVE APPOINTMENT NEXT WEEK WITH CANCER DRNii TODAY ONSET OF BACK PAIN AND WEAKNESS IN LEGS. Nursing Sepsis Screen: No Definite Risk Source of Information: Patient, Caregiver (Sister in law. States she is the power of workers compensation attorney) Exam Limitations: Other (Has Tracheostomy, difficult to understand) (SLIME VERGARA) History of Present Illness Date Seen by Provider: Jul 18, 2020 Time Seen by Provider: 15:00 Initial Comments Ruslan Ritter is a 69 y/o male that presents with a hx of one day of left sided weakness. He is accompanied by his sister in law, who states she is the "Power of Primer Boxer". The patient woke up this morning (approx 7am) unable to walk. He has weakness in the left lower and upper extremities. He points to left sided back pain that ranges from the lower thorax to upper lumbar region. The pain is a 8-10/10 and nothing has made it better. Trying to move makes it worse. The pain is constant and is described as achy and intermittently sharp. He is not able to definitely express if he has had controlled/uncontrolled bowel and bladder function. Associated sensory loss and calve tenderness over the left leg. Last bowel movement was this morning and last known urination was an hour a go (1500). 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 + sob, left leg pain, decreased left sided weakness, inability to walk. (-) for the following N/V, F/C, chest pain, abdominal pain, dizziness, changes in facial movement or sensory changes and vision changes. Denies the use of a nticoagulation. Denies known cardiac hx. Patient and family member do not know if patient has hx of bone metastasis. Location: Lumbar Spine, T-Spine Timing/Duration: 1 Day Severity: Severe Pain/Injury Location: Back, Lower Extremity, Upper Extremity Method of Injury: Unknown Modifying Factors: Worse With Movement Associated Symptoms: numbness in legs/feet, sensory/motor loss, lower back pain, loss of bladder control (cannot def say yes or no), loss of bowel control (cannot def say yes or no) Other Comments Patient is poor historian. (SLIME VERGARA YAMAPGRACY) Allergies and Home Medications Allergies Coded Allergies: No Known Drug Allergies (Unverified , 04/11/19) Home Medications Acetylcysteine 200 Mg/1 Ml Vial, 5 ML INH TID, (Reported) Atenolol 100 Mg Tablet, 100 MG PO DAILY, (Reported) Atorvastatin Calcium 20 Mg Tablet, 20 MG PO HS, (Reported) Escitalopram Oxalate 10 Mg Tablet, 10 MG PO DAILY, (Reported) Furosemide 40 Mg Tablet, 40 MG PO DAILY, (Reported) Ipratropium/Albuterol Sulfate 3 Ml Ampul.neb, 3 ML INH Q4H PRN for SHORTNESS OF BREATH, (Reported) Levothyroxine Sodium 150 Mcg Tablet, 150 MCG PO DAILY, (Reported) Phenytoin Sodium Extended 100 Mg Capsule, 400 MG PO DAILY, (Reported) TAKES 4 (100MG) CAPS Tizanidine HCl 2 Mg Tablet, 2 MG PO BID, (Reported) Patient Home Medication List Home Medication List Reviewed: Yes (ABDIEL CAMARENA MD) Review of Systems Constitutional: No fever; weakness EENTM: see HPI Respiratory: see HPI Cardiovascular: see HPI Gastrointestinal: see HPI Genitourinary: see HPI Musculoskeletal: see HPI Skin: no symptoms reported Psychiatric/Neurological: No Symptoms Reported (SLIME VERGARA) Past Uhmlixi-Eoftub-Vcvkwr Hx Patient Social History Alcohol Use: Denies Use Type Used: Smokeless Tobacco Former Smoker, Quit: Apr 11, 1999 2nd Hand Smoke Exposure: No Recent Infectious Disease Expo: No Recent Hopitalizations: No (SLIME VERGARA Innove[employer] MINDA) Immunizations Up To Date Tetanus Booster (TDap): Unknown Date of Influenza Vaccine: Feb 26, 2020 (EZEKIELSLIME [employer]ove[employer] MINDA) Seasonal Allergies Seasonal Allergies: No (EZEKIELSLIME YAMAPGRACY) Past Medical History Surgeries: Yes (Tracheostomy, laryngectomy, BACK,CATARACTS) Tracheostomy Respiratory: Yes (trach) Cardiac: Yes High Cholesterol, Hypertension Neurological: Yes (NO SEIZURES FOR 20YRS) Seizure Disorder Reproductive Disorders: No Sexually Transmitted Disease: No HIV/AIDS: No Genitourinary: No Gastrointestinal: No Musculoskeletal: Yes (FX LEFT WRIST FX November,) Chronic Back Pain Endocrine: Yes Hypothyroidsim HEENT: No (GLASSES) Loss of Vision: Denies Hearing Impairment: Denies Cancer: Yes (THROAT) Did You Recieve Any Treatments: Yes What Type of Treatment Did You: Chemotherapy, Radiation, Surgical Intervention Psychosocial: Yes Depression Integumentary: No Blood Disorders: No Adverse Reaction/Blood Tranf: No (N/A) (EZEKIELSmule MED STUDEN) Physical Exam Vital Signs Vital Signs - First Documented 07/18/20 14:28 Temp 37.2 Pulse 69 Resp 18 B/P (MAP) 147/80 (102) Pulse Ox 98 O2 Delivery Trach Collar O2 Flow Rate 2.00 (ABDIEL CAMARENA MD) Vital Signs Capillary Refill : Less Than 3 Seconds (EZEKIELSmule MED [facility] Healthcare[facility]) Height, Weight, BMI Height: 5'5.00" Weight: 145lbs. 0.0oz. 65.745332pe; 20.00 BMI Method:Stated General Appearance: Cachetic, Moderate Distress, Thin HEENT: PERRL/EOMI Neck: Full Range of Motion, Non Tender Cardiovascular: Regular Rate, Rhythm, Normal Peripheral Pulses Respiratory: Chest Non Tender, No Respiratory Distress, Crackles (Right upper lung ), Wheezing Peripheral Pulses: 2+ Radial Pulses (R), 2+ Radial Pulses (L) Gastrointestinal: Non Tender, Soft Back: Vertebral Tenderness (Left side Thorax/Lumbar region) Extremity: Calf Tenderness, Pedal Edema, Other (Right LE: 4/5, Left LE 2/5. sensory intact on right LE, decreased senosory left LE. 4/5 left upper extremity. 5/5 right upper extremity. Sensation intact BL in upper extremity. Patient could lift right leg off bed, unable to to lift left leg off of bed. + straight leg test on left. Tenderness to palpation on left side of lower thorax/lumbar region. Paraspinal tenderness thorax/lumbar region left side. ) Neurologic/Psychiatric: Alert, Oriented x3, criminal justice lawyer II-XII Norm as Tested Skin: Normal Color, Warm/Dry Lymphatic: No Adenopathy (EZEKIELApogee InformaticsSLIME MED STUDEN) Progress/Results/Core Measures Results/Orders Lab Results Laboratory Tests Test 07/18/20 15:30 Range/Units White Blood Count 12.4 H 4.3-11.0 10^3/uL Red Blood Count 3.85 L 4.30-5.52 10^6/uL Hemoglobin 12.2 L 13.3-17.7 g/dL Hematocrit 36 L 40-54 % Mean Corpuscular Volume 92 80-99 fL Mean Corpuscular Hemoglobin 32 25-34 pg Mean Corpuscular Hemoglobin Concent 34 32-36 g/dL Red Cell Distribution Width 13.2 10.0-14.5 % Platelet Count 395 130-400 10^3/uL Mean Platelet Volume 9.0 9.0-12.2 fL Immature Granulocyte % (Auto) 1 % Neutrophils (%) (Auto) 82 H 42-75 % Lymphocytes (%) (Auto) 7 L 12-44 % Monocytes (%) (Auto) 9 0-12 % Eosinophils (%) (Auto) 0 0-10 % Basophils (%) (Auto) 0 0-10 % Neutrophils # (Auto) 10.2 H 1.8-7.8 10^3/uL Lymphocytes # (Auto) 0.9 L 1.0-4.0 10^3/uL Monocytes # (Auto) 1.2 H 0.0-1.0 10^3/uL Eosinophils # (Auto) 0.0 0.0-0.3 10^3/uL Basophils # (Auto) 0.0 0.0-0.1 10^3/uL Immature Granulocyte # (Auto) 0.1 0.0-0.1 10^3/uL Prothrombin Time 13.6 12.2-14.7 SEC INR Comment 1.0 0.8-1.4 Activated Partial Thromboplast Time 39 H 24-35 SEC D-Dimer 1.71 H 0.00-0.49 UG/ML Sodium Level 130 L 135-145 MMOL/L Potassium Level 3.8 3.6-5.0 MMOL/L Chloride Level 91 L 98-107 MMOL/L Carbon Dioxide Level 23 21-32 MMOL/L Anion Gap 16 H 5-14 MMOL/L Blood Urea Nitrogen 5 L 7-18 MG/DL Creatinine 0.63 0.60-1.30 MG/DL Estimat Glomerular Filtration Rate > 60 BUN/Creatinine Ratio 8 Glucose Level 93 70-105 MG/DL Calcium Level 8.2 L 8.5-10.1 MG/DL Corrected Calcium 8.8 8.5-10.1 MG/DL Total Bilirubin 0.3 0.1-1.0 MG/DL Aspartate Amino Transf (AST/SGOT) 47 H 5-34 U/L Alanine Aminotransferase (ALT/SGPT) 27 0-55 U/L Alkaline Phosphatase 100 40-136 U/L Troponin I 0.038 H <0.028 NG/ML Total Protein 7.1 6.4-8.2 GM/DL Albumin 3.3 3.2-4.5 GM/DL (ABDIEL CAMARENA MD) My Orders Orders - ABDIEL CAMARENA MD Cbc With Automated Diff (07/18/20 14:59) Protime With Inr (07/18/20 14:59) Partial Thromboplastin Time (07/18/20 14:59) Comprehensive Metabolic Panel (07/18/20 14:59) Fibrin Degradation Products (07/18/20 14:59) Troponin I (07/18/20 14:59) Chest 1 View, Ap/Pa Only (07/18/20 14:59) Ekg Tracing (07/18/20 14:59) Nothing By Mouth (07/18/20 Lunch) Accucheck Stat ONCE (07/18/20 14:59) Ed Iv/Invasive Line Start (07/18/20 14:59) Ed Iv/Invasive Line Start (07/18/20 14:59) Vital Signs Stroke Patient Q15M (07/18/20 14:59) O2 (07/18/20 14:59) Intake & Output 06,14,22 (07/18/20 14:59) Monitor-Rhythm Ecg Trace Only (07/18/20 14:59) Dysphagia Screening Tool (07/18/20 14:59) Lipid Panel (07/19/20 06:00) Ct Thoracic/Lumbar Spine Wo (07/18/20 14:59) Ct Head/Cervical Spine Wo (07/18/20 14:59) Morphine Injection (Morphine Injection (07/18/20 16:17) Ct Angio Chest W (07/18/20 17:32) Iohexol Injection (Omnipaque 350 Mg/Ml 1 (07/18/20 17:45) Received Contrast (Hold Metformin- Contr (07/18/20 17:45) Ns (Ivpb) (Sodium Chloride 0.9% Ivpb Bag (07/18/20 17:45) Enoxaparin Injection (Lovenox Injection) (07/18/20 17:45) (ABDIEL CAMARENA MD) Vital Signs/I&O 07/18/20 07/18/20 14:28 14:28 Temp 37.2 Pulse 69 Resp 18 B/P (MAP) 147/80 (102) Pulse Ox 98 O2 Delivery Trach Collar O2 Flow Rate 2.00 (ABDIEL CAMARENA MD) Blood Pressure Mean: 102 Progress Progress Note : Time: 15:00 Progress Note Patient started on stroke protocol order set, will obtain imaging of spine. Ordered CBC, CMP and UA. Patient is in agreement. Will review results of labs and discuss further options with patient. (SLIME VERGARA) Progress Note : Time: 17:42 Progress Note I have discussed this case with Dr. Castañeda, Dr. Tejeda, and Dr. Norton. Determining best disposition has been a bit difficult based on his overall condition and pathology reports. In reviewing pathology reports with Dr. Hoffman, he recommends not enrolling in hospice just yet. He would like for the oncology team to have an opportunity to visit with the patient and explore the pathology further to determine if treatment is possible. Patient is agreeable to this. Patient and [id number] request he remain in DO NOT RESUSCITATE status. After treatment of pain patient was able to get up and shuffle walk a few steps which was an improvement. No longer appeared to have unilateral weakness. Strength and movement appear equal on re-evaluation. CT scans of the complete spine and head were evaluated to rule out causes of unilateral weakness. Elevated troponin and new T wave inversion was noted in the work-up. Dr. Watts was consulted. He asked for CT angiogram of the chest to determine if these findings could be caused by pulmonary embolism. Since ultrasound of the left leg is not available at this time, we will anticoagulate with Lovenox and obtain an ultrasound when available. 2D echocardiogram is also been ordered at Dr. Watts's request. I also contacted [facility] and provided them with Lulú Stone's phone number so they can establish a plan should he need hospice. (ABDIEL CAMARENA MD) Initial ECG Impression Date: Jul 18, 2020 Initial ECG Impression Time: 15:30 Initial ECG Rate: 63 Initial ECG Rhythm: Normal Sinus Comment Sinus rhythm with no ST elevation or depression. New T wave inversion in i nferior and lateral leads. Prolonged QT interval with QTC of 533. (ABDIEL CAMARENA MD) Diagnostic Imaging Diagonstic Imaging: Xray Plain Films/CT/US/NM/MRI: chest Comments Chest x-ray viewed by me and report reviewed. See below: NAME: [facility] REC#: [id number] PT STATUS: ADM Augustina : 1950 PHYSICIAN: ABDIEL CAMARENA MD ADMIT DATE: 07/18/20 Signed Date of Exam:07/18/20 CHEST 1 VIEW, AP/PA ONLY INDICATION: Recent biopsy of the right upper chest which demonstrated carcinoma, per history. Back pain and weakness in the legs started today. EXAMINATION: Chest. 07/18/2020. COMPARISON: 07/05/2020. FINDINGS: There is a large density within the right upper chest consistent with the known mass. This causes mass effect upon the trachea with midline shift towards the left, similar to previous. The heart is stable. Pulmonary vascular is unchanged. Coarsened markings seen throughout both lungs. Nonspecific densities in the periphery of the left lung base which could be due to atelectasis versus mild infiltrate. A metastatic process is not excluded. IMPRESSION: 1. Large mass in the right upper chest similar to slightly increased in size from previous imaging. 2. New vague airspace opacity at the left lung base, as noted above. Dictated by: Dictated on workstation # [id number] Dict: 07/18/20 1656 Trans: 07/19/20 0808 [facility] [id number] Interpreted by: MUSHTAQ GLASER MD Electronically signed by: MUSHTAQ GLASER MD 07/19/20 0808 Diagonstic Imaging: CT Plain Films/CT/US/NM/MRI: c-spine, head Comments CT head and c-spine viewed by me and report reviewed. See report below: NAME: [facility] REC#: [id number] PT STATUS: REG ER : 1950 PHYSICIAN: ABDIEL CAMARENA MD ADMIT DATE: 07/18/20/ER Signed Date of Exam:07/18/20 CT HEAD/CERVICAL SPINE WO PROCEDURE: CT head and CT cervical spine without contrast. TECHNIQUE: Multiple contiguous axial images were obtained through the brain and cervical spine without the use of intravenous contrast. Sagittal and coronal reformations through the cervical spine were then performed. Auto Exposure Controls were utilized during the CT exam to meet ALARA standards for radiation dose reduction. INDICATION: Leg weakness. Back pain. Right lung mass. COMPARISON: 07/02/2020. FINDINGS: CT head: No large acute territorial ischemia, mass, or hemorrhage. No midline shift or mass effect. Scattered decreased attenuation is seen in the periventricular and subcortical white matter. The ventricles and cortical sulci are mildly prominent. The basilar cisterns are patent and unremarkable. The calvarium is intact. The visualized paranasal sinuses are clear. CT cervical spine: No acute fracture or dislocation is seen in the cervical spine. No focal osseous lesion. Generalized osteopenia is noted. There is exaggerated lordosis of the cervical spine centered at the C5-C6 level. There is grade 1 retrolisthesis of C3 on C4 and grade 1 anterolisthesis of C6 on C7. The craniocervical junction is well-maintained. Moderate to severe degenerative changes are seen in the cervical spine with disc osteophyte complexes and uncovertebral arthropathy. Soft tissues of the neck are unremarkable. The large right apical lung mass is again noted. IMPRESSION: 1. No hemorrhage or focal intra-axial mass. No CT evidence of large acute territorial ischemia. 2. No acute fracture or dislocation in the cervical spine. 3. Redemonstration of the large right apical lung mass. 4. Generalized osteopenia. 5. Grade 1 retrolisthesis of C3 on C4 and grade 1 anterolisthesis of C6 on C7. 6. Mild parenchymal volume loss with scattered chronic microvascular disease. Dictated by: Dictated on workstation # [id number] Dict: 07/18/20 1547 Trans: 07/18/20 1619 [facility] [id number] Interpreted by: TAD ELLIS DO Electronically signed by: TAD ELLIS DO 07/18/20 1619 Diagonstic Imaging: CT Plain Films/CT/US/NM/MRI: other Comments CT thoracolumbar spine viewed by me and report reviewed. See below: NAME: [facility] REC#: [id number] PT STATUS: REG ER : 1950 PHYSICIAN: ABDIEL CAMARENA MD ADMIT DATE: 07/18/20/ER Signed Date of Exam:07/18/20 CT THORACIC/LUMBAR SPINE WO PROCEDURE: CT thoracic and lumbar spine without contrast. TECHNIQUE: Multiple contiguous axial images were obtained through the thoracic and lumbar spine without the use of intravenous contrast. Sagittal and coronal reformations were then performed. All CT scans use one or more of the following dose optimizing techniques: automated exposure control, MA and/or KvP adjustment based on patient size and exam type or iterative reconstruction. INDICATION: Back pain. Weakness. COMPARISON: None. FINDINGS: No acute fracture or dislocation is seen in the thoracic and lumbar spine. Generalized osteopenia is noted. Degenerative changes are seen in the thoracic and lumbar spine with disc height loss, marginal osteophytes and facet hypertrophy. Bilateral pars defects are visualized at the L5 level with grade 1 anterolisthesis of L5 on S1. Prominent Schmorl's node is seen in the inferior endplate of L3. No high density material is seen within the spinal canal. No evidence of acute spinal canal stenosis. Large right apical lung mass is again noted. The paravertebral soft tissues are unremarkable in the thoracic and lumbar spine. IMPRESSION: 1. No acute fracture or dislocation in the thoracic and lumbar spine. 2. Generalized osteopenia. 3. Multilevel degenerative changes in the lumbar spine with bilateral pars defects at L5 and grade 1 anterolisthesis of L5 on S1. Dictated by: Dictated on workstation # [id number] Dict: 07/18/20 1627 Trans: 07/18/20 1637 [facility] [id number] Interpreted by: TAD ELLIS DO Electronically signed by: TAD ELLIS DO 07/18/20 1897 (ABDIEL CAMARENA MD) Departure Communication (Admissions) Time/Spoke to Admitting Phy: 17:27 Dr. Castañeda 17:15 Dr. Hoffman 17:30 Dr. Watts 16:30 Dr. Tejeda (ABDIEL CAMARENA MD) Impression Primary Impression: Lung tumor Additional Impressions: Generalized weakness Elevated troponin Back pain Qualified Codes: M54.9 - Dorsalgia, unspecified Elevated d-dimer Mucus plugging of bronchi Disposition: ADMITTED INPATIENT Condition: Improved Admissions Decision to Admit Reason: Admit from ER (General) Decision to Admit/Date: Jul 18, 2020 Time/Decision to Admit Time: 17:15 (ABDIEL CAMARENA MD) Departure-Patient Inst. Referrals: PRABHA GARZA DO (PCP/Family) Primary Care Physician This patient and family were interviewed by me personally and patient was examined by me along with Slime Vergara MS4. I have reviewed his documentation and agree with his history, physical and assessments except where otherwise noted. Exam: Gen: Alert, oriented, mild distress, thin HEENT: Tracheostomy patent with new edema per RT who knows patient from prior admission Heart: RRR, no murmur Lungs: Mild wheezes, air movement bilaterally with normal effort Abd: Soft, NT, ND Ext: Tender left calf with positive Katelin sign Neuro: Alert and oriented, apparent weakness of the LLE that resolved after treatment of pain, normal mood and affect. Skin: warm and dry, no rashes (ABDIEL CAMARENA MD) [facility] Jul 18, 2020 15:37 ABDIEL CAMARENA MD Jul 18, 2020 17:48
[2020-07-18 15:41] LABS: BASOPHILS % (AUTO) 0 % (0-10); EOSINOPHILS % (AUTO) 0 % (0-10); HEMATOCRIT 36 % (40-54); HEMOGLOBIN 12.2 g/dL (13.3-17.7); LYMPHOCYTES # (AUTO) 0.9 10^3/uL (1.0-4.0); LYMPHOCYTES % (AUTO) 7 % (12-44); MEAN CORPUSCULAR HEMOGLOBIN 32 pg (25-34); MEAN CORPUSCULAR HGB CONC 34 g/dL (32-36); MEAN CORPUSCULAR VOLUME 92 fL (80-99); MONOCYTES # (AUTO) 1.2 10^3/uL (0.0-1.0); MONOCYTES % (AUTO) 9 % (0-12); NEUTROPHILS # (AUTO) 10.2 10^3/uL (1.8-7.8); NEUTROPHILS % (AUTO) 82 % (42-75); PLATELET COUNT 395 10^3/uL (130-400); WHITE BLOOD COUNT 12.4 10^3/uL (4.3-11.0)
[2020-07-18 15:45] LABS: ALBUMIN 3.3 GM/DL (3.2-4.5)
[2020-07-18 15:46] LABS: CHLORIDE 91 MMOL/L (98-107); POTASSIUM 3.8 MMOL/L (3.6-5.0); SODIUM 130 MMOL/L (135-145)
[2020-07-18 15:47] LABS: CALCIUM 8.2 MG/DL (8.5-10.1)
[2020-07-18 15:48] LABS: GLUCOSE 93 MG/DL (70-105); TOTAL PROTEIN 7.1 GM/DL (6.4-8.2)
[2020-07-18 15:49] LABS: CARBON DIOXIDE 23 MMOL/L (21-32)
[2020-07-18 15:50] LABS: BILIRUBIN,TOTAL 0.3 MG/DL (0.1-1.0)
[2020-07-18 15:51] LABS: ALKALINE PHOSPHATASE 100 U/L (40-136)
[2020-07-18 15:52] LABS: CREATININE SERUM 0.63 MG/DL (0.60-1.30); FIBRIN DEGRADATION PRODUCTS 1.71 UG/ML (0.00-0.49); GFR ESTIMATED > 60; PROTHROMBIN TIME PATIENT 13.6 SEC (12.2-14.7)
[2020-07-18 15:53] LABS: BUN/CREATININE RATIO 8
[2020-07-18 15:55] LABS: ALANINE AMINOTRANSFERASE 27 U/L (0-55)
--- NOTE | 2020-07-18 15:57 | Diagnostic Imaging Report ---
PROCEDURE: CT head and CT cervical spine without contrast. TECHNIQUE: Multiple contiguous axial images were obtained through the brain and cervical spine without the use of intravenous contrast. Sagittal and coronal reformations through the cervical spine were then performed. Auto Exposure Controls were utilized during the CT exam to meet ALARA standards for radiation dose reduction. INDICATION: Leg weakness. Back pain. Right lung mass. COMPARISON: 07/02/2020. FINDINGS: CT head: No large acute territorial ischemia, mass, or hemorrhage. No midline shift or mass effect. Scattered decreased attenuation is seen in the periventricular and subcortical white matter. The ventricles and cortical sulci are mildly prominent. The basilar cisterns are patent and unremarkable. The calvarium is intact. The visualized paranasal sinuses are clear. CT cervical spine: No acute fracture or dislocation is seen in the cervical spine. No focal osseous lesion. Generalized osteopenia is noted. There is exaggerated lordosis of the cervical spine centered at the C5-C6 level. There is grade 1 retrolisthesis of C3 on C4 and grade 1 anterolisthesis of C6 on C7. The craniocervical junction is well-maintained. Moderate to severe degenerative changes are seen in the cervical spine with disc osteophyte complexes and uncovertebral arthropathy. Soft tissues of the neck are unremarkable. The large right apical lung mass is again noted. IMPRESSION: 1. No hemorrhage or focal intra-axial mass. No CT evidence of large acute territorial ischemia. 2. No acute fracture or dislocation in the cervical spine. 3. Redemonstration of the large right apical lung mass. 4. Generalized osteopenia. 5. Grade 1 retrolisthesis of C3 on C4 and grade 1 anterolisthesis of C6 on C7. 6. Mild parenchymal volume loss with scattered chronic microvascular disease. Dictated by: Dictated on workstation # [id number]
[2020-07-18] MEDS ORDERED: morphine INJ 10 MG/ML 1ML (SYR OR VIAL) IVP STA (16:17)
--- NOTE | 2020-07-18 16:34 | Diagnostic Imaging Report ---
PROCEDURE: CT thoracic and lumbar spine without contrast. TECHNIQUE: Multiple contiguous axial images were obtained through the thoracic and lumbar spine without the use of intravenous contrast. Sagittal and coronal reformations were then performed. All CT scans use one or more of the following dose optimizing techniques: automated exposure control, MA and/or KvP adjustment based on patient size and exam type or iterative reconstruction. INDICATION: Back pain. Weakness. COMPARISON: None. FINDINGS: No acute fracture or dislocation is seen in the thoracic and lumbar spine. Generalized osteopenia is noted. Degenerative changes are seen in the thoracic and lumbar spine with disc height loss, marginal osteophytes and facet hypertrophy. Bilateral pars defects are visualized at the L5 level with grade 1 anterolisthesis of L5 on S1. Prominent Schmorl's node is seen in the inferior endplate of L3. No high density material is seen within the spinal canal. No evidence of acute spinal canal stenosis. Large right apical lung mass is again noted. The paravertebral soft tissues are unremarkable in the thoracic and lumbar spine. IMPRESSION: 1. No acute fracture or dislocation in the thoracic and lumbar spine. 2. Generalized osteopenia. 3. Multilevel degenerative changes in the lumbar spine with bilateral pars defects at L5 and grade 1 anterolisthesis of L5 on S1. Dictated by: Dictated on workstation # [id number]
--- NOTE | 2020-07-18 17:24 | Diagnostic Imaging Report ---
INDICATION: Recent biopsy of the right upper chest which demonstrated carcinoma, per history. Back pain and weakness in the legs started today. EXAMINATION: Chest. 07/18/2020. COMPARISON: 07/05/2020. FINDINGS: There is a large density within the right upper chest consistent with the known mass. This causes mass effect upon the trachea with midline shift towards the left, similar to previous. The heart is stable. Pulmonary vascular is unchanged. Coarsened markings seen throughout both lungs. Nonspecific densities in the periphery of the left lung base which could be due to atelectasis versus mild infiltrate. A metastatic process is not excluded. IMPRESSION: 1. Large mass in the right upper chest similar to slightly increased in size from previous imaging. 2. New vague airspace opacity at the left lung base, as noted above. Dictated by: Dictated on workstation # [id number]
[2020-07-18] MEDS ORDERED: HOLD METFORMIN - RECEIVED CONTRAST 20 ML VIAL IV SCH (17:45)
[2020-07-18] MEDS ORDERED: IOHEXOL 350 MG/ML 100 ML (OMNIPAQUE 350) VIAL IV ONE (17:45)
[2020-07-18] MEDS ORDERED: ENOXAPARIN 60 MG/0.6 ML (LOVENOX) SYR SC ONE (17:45)
[2020-07-18] MEDS ORDERED: NS 100 ML (IVPB) BAG IV ONE (17:45)
--- NOTE | 2020-07-18 18:11 | Diagnostic Imaging Report ---
PROCEDURE: CT angiography of the chest with contrast. TECHNIQUE: Multiple contiguous axial images were obtained through the chest after uneventful bolus administration of intravenous contrast. 3D reconstructed CTA MIP acquisitions were also performed. Auto Exposure Controls were utilized during the CT exam to meet ALARA standards for radiation dose reduction. INDICATION: Pulmonary embolism. COMPARISON: 06/30/2020. FINDINGS: There is a tiny nonocclusive pulmonary embolism in a single left lobar basilar pulmonary arterial branch. No additional PE is seen. Coronary artery disease is present. There is slight cardiac enlargement. The aorta is stable. The superior vena cava remains patent despite a large right upper lobe lung mass. There is a new infiltrate in the left upper lobe which extends into the lingula. There is some infiltrate and atelectasis in the right base. There is no pneumothorax or large effusion. Osseous structures are stable. Visualized upper abdominal solid organs are unchanged. IMPRESSION: 1. Tiny focal nonocclusive pulmonary embolism in the left lobar basilar branch pulmonary artery. 2. New infiltrate in left upper lobe lingula and right lung base with associated right basilar atelectasis. 3. Known large partially calcified right upper lobe pulmonary mass. Superior vena cava remains patent. Dictated by: Dictated on workstation # [id number]
[2020-07-18 19:31] VITALS: BP 114/65
[2020-07-18 20:12] VITALS: BP 147/80
[2020-07-18] MEDS ORDERED: aCETylcysteine 20% (MUCOMYST) 30ML SOLN VIAL INH PRN (20:15)
[2020-07-18] MEDS ORDERED: ONDANSETRON 4 MG/2 ML (SDV) Z0FRAN IV PRN (20:15)
[2020-07-18] MEDS: RT-ALBUTEROL/IPRATROPIUM 3 ML (DUONEB) VIAL INH SCH (22:07)
[2020-07-18] MEDS: aCETylcysteine 20% (MUCOMYST) 30ML SOLN VIAL INH SCH (22:08)
[2020-07-18] MEDS: NS IV 1000 ML 1,000 ML IV SCH (22:53)
[2020-07-19] VITALS: BP 117/73
[2020-07-19] MEDS ORDERED: RT-ALBUTEROL/IPRATROPIUM 3 ML (DUONEB) VIAL INH SCH
[2020-07-19] MEDS: RT-ALBUTEROL/IPRATROPIUM 3 ML (DUONEB) VIAL INH SCH ×4 (02:10→20:33)
[2020-07-19] MEDS: aCETylcysteine 20% (MUCOMYST) 30ML SOLN VIAL INH SCH ×4 (02:10→20:33)
[2020-07-19] MEDS: morphine INJ 4 MG/ML 1 ML (VIAL/SYRINGE) IV PRN ×2 (03:27→12:37)
[2020-07-19 03:54] VITALS: BP 134/62
[2020-07-19 05:01] LABS: BASOPHILS % (AUTO) 0 % (0-10); EOSINOPHILS # (AUTO) 0.1 10^3/uL (0.0-0.3); EOSINOPHILS % (AUTO) 1 % (0-10); HEMATOCRIT 33 % (40-54); HEMOGLOBIN 11.2 g/dL (13.3-17.7); LYMPHOCYTES # (AUTO) 0.8 10^3/uL (1.0-4.0); LYMPHOCYTES % (AUTO) 9 % (12-44); MEAN CORPUSCULAR HEMOGLOBIN 32 pg (25-34); MEAN CORPUSCULAR HGB CONC 34 g/dL (32-36); MEAN CORPUSCULAR VOLUME 93 fL (80-99); MONOCYTES # (AUTO) 0.9 10^3/uL (0.0-1.0); MONOCYTES % (AUTO) 10 % (0-12); NEUTROPHILS # (AUTO) 7.1 10^3/uL (1.8-7.8); NEUTROPHILS % (AUTO) 80 % (42-75); PLATELET COUNT 331 10^3/uL (130-400); WHITE BLOOD COUNT 8.9 10^3/uL (4.3-11.0)
[2020-07-19 05:24] LABS: ALBUMIN 3.1 GM/DL (3.2-4.5); CHLORIDE 94 MMOL/L (98-107); POTASSIUM 2.8 MMOL/L (3.6-5.0); SODIUM 135 MMOL/L (135-145)
[2020-07-19 05:25] LABS: CALCIUM 8.2 MG/DL (8.5-10.1)
[2020-07-19 05:26] LABS: TRIGLYCERIDES 73 MG/DL (<150); VLDL CHOLESTEROL 15 MG/DL (5-40)
[2020-07-19 05:27] LABS: GLUCOSE 88 MG/DL (70-105); TOTAL PROTEIN 6.2 GM/DL (6.4-8.2)
[2020-07-19 05:28] LABS: CARBON DIOXIDE 24 MMOL/L (21-32)
[2020-07-19 05:29] LABS: BILIRUBIN,TOTAL 0.3 MG/DL (0.1-1.0)
[2020-07-19 05:30] LABS: ALKALINE PHOSPHATASE 98 U/L (40-136); CREATININE SERUM 0.56 MG/DL (0.60-1.30); GFR ESTIMATED > 60
[2020-07-19 05:31] LABS: CHOLESTEROL 153 MG/DL (< 200)
[2020-07-19 05:32] LABS: BUN/CREATININE RATIO 9
[2020-07-19 05:33] LABS: ALANINE AMINOTRANSFERASE 22 U/L (0-55); HDL CHOLESTEROL 45 MG/DL (40-60)
[2020-07-19] MEDS: NS IV 1000 ML 1,000 ML IV SCH ×2 (06:35→09:12)
[2020-07-19] MEDS: ENOXAPARIN 60 MG/0.6 ML (LOVENOX) SYR SC SCH ×2 (06:36→17:35)
[2020-07-19 08:05] VITALS: BP 131/60
[2020-07-19] MEDS: MAGNESIUM 1 GM/100 ML IVPB 100 ML IV SCH (08:35)
[2020-07-19] MEDS: POTASSIUM CL 10MEQ/50ML IVPB 50 ML IV SCH (08:35)
[2020-07-19] MEDS: KCL 20 MEQ TAB (K-DUR) PO SCH (08:41)
[2020-07-19] MEDS ORDERED: KCL 20 MEQ TAB (K-DUR) PO ONE ×3 (08:45→12:30)
[2020-07-19] MEDS ORDERED: PIPERACILLIN/TAZOBACTAM (BULK) 4.5 GM in NS (IVPB) 100 ML IV NR (09:00)
[2020-07-19] MEDS: ASPIRIN 81 MG CHEW (CHILDREN'S ASA) PO SCH (09:12)
--- NOTE | 2020-07-19 09:58 | Diagnostic Imaging Report ---
Procedure: US Venous Lower Ext Stef. Technique: Multiple real-time grayscale images were obtained over the lower extremities in various projections, bilaterally. Additional duplex Doppler and color Doppler images were also obtained. Date: September 16, 2020. Indication: 69-year-old male, history of lung tumor and weakness. Back pain. Elevated D-dimer. Evaluation for pulmonary embolus. Comparison: None. Findings: The right common femoral vein, right superficial femoral vein, and right popliteal vein all appear compressible with demonstrated blood flow. The visualized portions of the right deep femoral vein and greater saphenous vein are patent. The right posterior tibial and peroneal veins are patent. The left common femoral vein, left superficial femoral vein, and left popliteal vein are all compressible with normal blood flow and response to augmentation. The visualized portions of the left deep femoral vein and greater saphenous vein are patent. The left posterior tibial and peroneal veins are patent. Impression: 1. Negative for right or left lower extremity deep venous thrombosis. Dictated by: Dictated on workstation # [id number]
--- NOTE | 2020-07-19 10:41 | History & Physical-Hospitalist ---
History of Present Illness HPI/Chief Complaint Dima Ritter is a 69-year-old male with past medical history of hypertension, hyperlipidemia, hypothyroidism, depression, laryngeal cancer, tracheostomy, newly diagnosed lung cancer, who presented with left leg pain and weakness. He reports that he is having pain in his back and in his thigh. He was also having shortness of breath and sputum production. He denies any fevers or chills. He denies any chest pain. He denies any abdominal pain, nausea, or vomiting. He has not yet started any sort of treatment for his newly diagnosed cancer. Date Seen 07/19/20 Time Seen by a Provider: 09:35 Attending Physician Rosalie Escobedo MD PCP Ministerio Newberry DO Referring Physician Date of Admission Jul 18, 2020 at 18:12 Home Medications & Allergies Home Medications Reviewed patient Home Medication Reconciliation performed by pharmacy medication reconciliations lead slot technician and/or nursing. Patients Allergies have been reviewed. Allergies Allergies Coded Allergies No Known Drug Allergies ([id number]/14/19) Past Ytomhwu-Afamco-Qlvyfy Hx Past Med/Social Hx: Reviewed Nursing Past Med/Soc Hx Patient Social History Alcohol Use: Denies Use Recreational Drug Use: No Former Smoker, Quit: Apr 11, 1999 Type Used: Smokeless Tobacco 2nd Hand Smoke Exposure: No Recent Foreign Travel: No Contact w/other who traveled: No Recent Hopitalizations: No Recent Infectious Disease Expo: No Immunizations Up To Date Tetanus Booster (TDap): Unknown Date of Influenza Vaccine: Feb 26, 2020 Seasonal Allergies Seasonal Allergies: No Past Medical History Surgeries: Tracheostomy Cardiac: High Cholesterol, Hypertension Neurological: Seizure Disorder Reproductive: No Sexually Transmitted Disease: No HIV/AIDS: No Musculoskeletal: Chronic Back Pain Endocrine: Hypothyroidsim Loss of Vision: Denies Hearing Impairment: Denies Did You Recieve Any Treatments: Yes What Type of Treatment Did You: Chemotherapy, Radiation, Surgical Intervention Psychosocial: Depression History of Blood Disorders: No Adverse Reaction to Blood Gann: No (N/A) Review of Systems Constitutional: no symptoms reported EENTM: no symptoms reported Respiratory: cough, phlegm, short of breath Cardiovascular: no symptoms reported Gastrointestinal: no symptoms reported Genitourinary: no symptoms reported Musculoskeletal: back pain, muscle weakness Skin: no symptoms reported Psychiatric/Neurological: No Symptoms Reported Physical Exam Physical Exam Vital Signs Vital Signs - First Documented 07/18/20 07/18/20 14:28 20:12 Temp 37.2 Pulse 69 Resp 18 B/P (MAP) 147/80 (102) Pulse Ox 98 O2 Delivery Trach Collar O2 Flow Rate 2.00 FiO2 28 Capillary Refill : Less Than 3 Seconds Height, Weight, BMI Height: 5'5.00" Weight: 145lbs. 0.0oz. [id number]; 20.83 BMI Method:Stated General Appearance: No Apparent Distress, Chronically ill HEENT: PERRL/EOMI, Other (dry mucous membranes) Neck: Other (tracheostomy in place, wearing trach collar) Respiratory: Lungs Clear, No Respiratory Distress, Decreased Breath Sounds Cardiovascular: Regular Rate, Rhythm, No Edema, No Murmur Gastrointestinal: Normal Bowel Sounds, Non Tender, Soft Extremity: Normal Inspection, Non Tender, No Pedal Edema Neurologic/Psychiatric: Alert, Oriented x3, No Motor/Sensory Deficits, Normal Mood/Affect Skin: Normal Color, Warm/Dry Results Results/Procedures Labs Laboratory Tests 07/18/20 15:30 07/19/20 04:32 Patient resulted labs reviewed. Imaging: Reviewed Imaging Report Assessment/Plan Admission Diagnosis Pulmonary embolism Admission Status: Inpatient Order (span 2 midnights) Reason for Inpatient Admission: PE requiring anticoagulation PNA requiring IV antibiotics Assessment and Plan Pulmonary embolism At high risk for venous thromboembolism Elevated troponin Elevated d-dimer Venous dopplers negative CT PE revealed single small pulmonary embolism Started on Lovenox Troponin mildly elevated, likely due to PE Cardiology consulted, appreciate assistance PNA CT revealed bilateral infiltrates Procalcitonin normal Started on Zosyn Repeat procalcitonin tomorrow, if normal consider discontinuing antibiotics Tracheostomy in place Lung mass, carcinoma vs chondrosarcoma Mucous plugging COPD Mucomyst MAT protocol Consult oncology, appreciate assistance Back pain Possible sciatica No evidence of metastatic disease on CT spine Pain regimen PT/OT Hypokalemia Hyponatremia Monitor and replace electrolytes as needed HTN HLD Seizure disorder Hypothyroidism Continue home meds Poor prognosis Palliative care consulted, appreciate assistance Diagnosis/Problems Diagnosis/Problems (1) Pulmonary embolism Status: Acute Qualifiers: Pulmonary embolism type: single subsegmental (without acute cor pulmonale) Qualified Codes: I26.93 - Single subsegmental pulmonary embolism without acute cor pulmonale (2) At high risk for venous thromboembolism Status: Chronic (3) PNA (pneumonia) Status: Acute Qualifiers: Laterality: bilateral Lung location: unspecified part of lung (4) Lung tumor Status: Acute (5) Tracheostomy in place Status: Chronic ROSALIE ESCOBEDO MD Jul 19, 2020 10:41
[2020-07-19] MEDS ORDERED: ATENOLOL 50 MG (TENORMIN) TAB PO ONE (11:30)
[2020-07-19] MEDS ORDERED: PHENYTOIN 100 MG (DILANTIN) CAP PO ONE (11:30)
[2020-07-19] MEDS ORDERED: LEVOTHYROXINE 150 MCG (LEVOTHROID) TAB PO ONE (11:30)
[2020-07-19] MEDS ORDERED: amLODIPine 10 MG (NORVASC) TAB PO ONE (11:30)
[2020-07-19] MEDS ORDERED: lisINopril 40 MG (PRINIVIL) TABLET PO ONE (11:30)
[2020-07-19 12:05] VITALS: BP 155/69
--- NOTE | 2020-07-19 13:11 | Consultation-Cardiology ---
HPI-Cardiology Cardiology Consultation: Date of Consultation 07/19/20 Date of Admission Attending Physician Yocasta Escobedo MD Admitting Physician Ministerio Newberry DO Consulting Physician Alena DUVAL MD HPI: Time Seen by a Provider: 13:11 Chief Complaint: shortness of breath this is a 69-year-old gentleman who has significant history of smoking in the past, laryngeal cancer, tracheostomy. Newly diagnosed lung cancer. Presented with complaints of left leg pain and weakness. Mildly positive troponin with shortness of breath, possible DVT. Pulmonary embolism confirmed on CT scan. Review of Systems-Cardiology Review of Systems Constitutional: As described under HPI; No As described under HPI, No no symptoms reported, No chills, No fever, No lightheadedness Eyes: No As described under HPI, No no symptoms reported, No blindness, No blurred vision, No contact lenses, No drainage, No decreased acuity, No foreign body sensation, No pain, No vision change Ears/Nose/Throat: No As described under HPI, No no symptoms reported, No chronic hearing loss, No ear discharge, No ear pain, No nasal drainage, No ulcerations Respiratory: No no symptoms reported; As described under HPI; No As described under HPI, No cough; orthopnea; No shortness of breath, No SOB with excertion Cardiovascular: No no symptoms reported; As described under HPI; No As described under HPI, No chest pain, No edema, No irregular heart rate, No lightheadedness, No palpitations Gastrointestinal: No no symptoms reported, No As described under HPI, No abdomen distended, No abdominal pain, No blood streaked bowels, No constipation, No diarrhea, No nausea, No vomiting, No stool coloration changes Genitourinary: No As described under HPI, No burning, No dysuria, No discharge, No frequency, No flank pain, No hematuria, No urgency Musculoskeletal: As describe under HPI Skin: No rash, No skin related problems, No ulcerations Psychiatric/Neurological: No anxiety, No depression, No seizure, No focal weakness, No syncope Hematologic: No bleeding abnormalities RUO-Ltukyv-Zcooik Hx Patient Social History 2nd Hand Smoke Exposure: No Have you traveled recently?: No Alcohol Use?: No Pt feels they are or have been: No Immunizations Up To Date Tetanus Booster (TDap): Unknown Date of Influenza Vaccine: Feb 26, 2020 Past Medical History PMH As described under Assessment. Allergies and Home Medications Allergies Coded Allergies: No Known Drug Allergies (Unverified , 04/11/19) Home Medications Acetylcysteine 200 Mg/1 Ml Vial, 5 ML INH TID Prescribed by: YOCASTA ESCOBEDO on 07/04/20 1217 Amlodipine Besylate 5 Mg Tablet, 5 MG PO DAILY, (Reported) Atenolol 100 Mg Tablet, 100 MG PO DAILY, (Reported) Atorvastatin Calcium 20 Mg Tablet, 20 MG PO HS, (Reported) Escitalopram Oxalate 10 Mg Tablet, 10 MG PO DAILY, (Reported) Furosemide 40 Mg Tablet, 40 MG PO DAILY, (Reported) Levothyroxine Sodium 150 Mcg Tablet, 150 MCG PO DAILY, (Reported) Lisinopril 40 Mg Tablet, 40 MG PO DAILY, (Reported) Phenytoin Sodium Extended 100 Mg Capsule, 400 MG PO DAILY, (Reported) TAKES 4 (100MG) CAPS Prednisone 10 Mg Tab, MG PO DAILY, (Reported) TAPER DOSE- 6 TABS ON DAY 1 AND THEN DECREASE BY 1 TAB EACH DAY UNTIL ALL TAKEN FILLED 07-01-2020 #16/11 DAY SUPPLY Tizanidine HCl 2 Mg Tablet, 2 MG PO BID, (Reported) Patient Home Medication List Home Medication List Reviewed: Yes Physical Exam-Cardiology Physical Exam Vital Signs/I&O 07/19/20 07/19/20 07/19/20 07/19/20 02:10 03:54 06:56 07:00 Temp 37.0 Pulse 77 73 Resp 19 B/P (MAP) 134/62 (86) Pulse Ox 93 95 85 O2 Delivery Trach Collar Trach Collar Trach Collar O2 Flow Rate 10.00 9.00 10.00 FiO2 35 35 07/19/20 07/19/20 07/19/20 07/19/20 08:00 08:05 12:05 12:30 Temp 37.0 36.9 Pulse 77 80 69 Resp 14 16 B/P (MAP) 131/60 (83) 155/69 (97) Pulse Ox 98 97 O2 Delivery Trach Collar Trach Collar Trach Collar O2 Flow Rate 10.00 10.00 8.00 07/19/20 00:00 Intake Total 240 ml Output Total 320 ml Balance -80 ml Capillary Refill : Less Than 3 Seconds Constitutional: other (not well nourished) HEENT: other (to colostomy) Neck: other (tracheostomy) Respiratory: other (mild respiratory distress) Cardiovascular: regular rate-rhythm, S1 and S2 Gastrointestinal: soft, audible bowel sounds Rectal: deferred Extremities: no lower extremity edema bilateral Neurologic/Psychiatric: alert, normal mood/affect Data Review Labs Laboratory Tests 07/18/20 15:30: White Blood Count 12.4H, Red Blood Count 3.85L, Hemoglobin 12.2L, Hematocrit 36L , Mean Corpuscular Volume 92, Mean Corpuscular Hemoglobin 32, Mean Corpuscular Hemoglobin Concent 34, Red Cell Distribution Width 13.2, Platelet Count 395, Mean Platelet Volume 9.0, Immature Granulocyte % (Auto) 1, Neutrophils (%) (Auto) 82H, Lymphocytes (%) (Auto) 7L, Monocytes (%) (Auto) 9, Eosinophils (%) (Auto) 0, Basophils (%) (Auto) 0, Neutrophils # (Auto) 10.2H, Lymphocytes # (Auto) 0.9L, Monocytes # (Auto) 1.2H, Eosinophils # (Auto) 0.0, Basophils # (Auto) 0.0, Immature Granulocyte # (Auto) 0.1, Prothrombin Time 13.6, INR Comment 1.0, Activated Partial Thromboplast Time 39H, D-Dimer 1.71H, Sodium Level 130L, Potassium Level 3.8, Chloride Level 91L, Carbon Dioxide Level 23, Anion Gap 16H, Blood Urea Nitrogen 5L, Creatinine 0.63, Estimat Glomerular Filtration Rate > 60, BUN/Creatinine Ratio 8, Glucose Level 93, Calcium Level 8.2L, Corrected Calcium 8.8, Total Bilirubin 0.3, Aspartate Amino Transf (AST/ SGOT) 47H, Alanine Aminotransferase (ALT/SGPT) 27, Alkaline Phosphatase 100, Troponin I 0.038H, Total Protein 7.1, Albumin 3.3 07/18/20 20:28: Troponin I 0.045H 07/19/20 04:32: White Blood Count 8.9, Red Blood Count 3.56L, Hemoglobin 11.2L, Hematocrit 33L, Mean Corpuscular Volume 93, Mean Corpuscular Hemoglobin 32, Mean Corpuscular Hemoglobin Concent 34, Red Cell Distribution Width 13.3, Platelet Count 331, Mean Platelet Volume 9.0, Immature Granulocyte % (Auto) 0, Neutrophils (%) (Auto) 80H, Lymphocytes (%) (Auto) 9L, Monocytes (%) (Auto) 10, Eosinophils (%) (Auto) 1, Basophils (%) (Auto) 0, Neutrophils # (Auto) 7.1, Lymphocytes # (Auto) 0.8L, Monocytes # (Auto) 0.9, Eosinophils # (Auto) 0.1, Basophils # (Auto) 0.0, Immature Granulocyte # (Auto) 0.0, Sodium Level 135, Potassium Level 2.8L, Chloride Level 94L, Carbon Dioxide Level 24, Anion Gap 17H, Blood Urea Nitrogen 5L, Creatinine 0.56L, Estimat Glomerular Filtration Rate > 60, BUN/Creatinine Ratio 9, Glucose Level 88, Calcium Level 8.2L, Corrected Calcium 8.9, Total Bilirubin 0.3, Aspartate Amino Transf (AST/SGOT) 37H, Alanine Aminotransferase (ALT/SGPT) 22, Alkaline Phosphatase 98, Total Protein 6.2L, Albumin 3.1L, Magnesium Level 2.0, Triglycerides Level 73, Cholesterol Level 153, LDL Cholesterol Direct 92, VLDL Cholesterol 15, HDL Cholesterol 45, Procalcitonin 0.06 ECG Impression ECG Comment bradycardia, artefact. TWI in the anterior precordial leads A/P-Cardiology Assessment/Admission Diagnosis tracheostomy, mild respiratory distress, Lung cancer, Pulmonary embolism, Mild positive troponin Plan tracheostomy, mild respiratory distress, Lung cancer, for to Dr. Ocampo. Pulmonary embolism, lovenox. Mild positive troponin, likely due to PE. Echocardiogram. Thank you for your consultation. Please call me if you have any questions. Glenda Duval MD, FACP, FACC, FSCAI, FHRS, CCDS Interventional Cardiology Cardiac Electrophysiology Vascular Medicine and Endovascular Interventions Alena DUVAL MD Jul 19, 2020 13:11
[2020-07-19] MEDS: PIPERACILLIN/TAZOBACTAM (BULK) 4.5 GM in NS (IVPB) 100 ML IV SCH ×2 (14:04→23:19)
[2020-07-19] MEDS: oxyCODONE/APAP 5/325MG (PERCOCET 5) TABLET PO PRN ×2 (15:43→21:10)
[2020-07-19 16:00] VITALS: BP 141/66
[2020-07-19 17:10] LABS: CHLORIDE 97 MMOL/L (98-107); POTASSIUM 3.7 MMOL/L (3.6-5.0); SODIUM 135 MMOL/L (135-145)
[2020-07-19 17:11] LABS: CALCIUM 8.3 MG/DL (8.5-10.1)
[2020-07-19 17:12] LABS: GLUCOSE 94 MG/DL (70-105)
[2020-07-19 17:13] LABS: CARBON DIOXIDE 24 MMOL/L (21-32)
[2020-07-19 17:16] LABS: CREATININE SERUM 0.61 MG/DL (0.60-1.30); GFR ESTIMATED > 60
[2020-07-19 17:17] LABS: BUN/CREATININE RATIO 7
[2020-07-19 20:00] VITALS: BP 136/74
[2020-07-20] VITALS (8 sets, daily range): BP systolic 117–161; BP diastolic 60–83
[2020-07-20] MEDS: RT-ALBUTEROL/IPRATROPIUM 3 ML (DUONEB) VIAL INH SCH ×4 (02:09→21:27)
[2020-07-20] MEDS: aCETylcysteine 20% (MUCOMYST) 30ML SOLN VIAL INH SCH ×4 (02:09→21:27)
[2020-07-20] MEDS: LEVOTHYROXINE 150 MCG (LEVOTHROID) TAB PO SCH (05:59)
[2020-07-20] MEDS: ENOXAPARIN 60 MG/0.6 ML (LOVENOX) SYR SC SCH ×2 (05:59→18:02)
[2020-07-20 06:16] LABS: CHLORIDE 99 MMOL/L (98-107); POTASSIUM 3.8 MMOL/L (3.6-5.0); SODIUM 135 MMOL/L (135-145)
[2020-07-20 06:17] LABS: CALCIUM 8.5 MG/DL (8.5-10.1); GLUCOSE 81 MG/DL (70-105)
[2020-07-20 06:19] LABS: CARBON DIOXIDE 23 MMOL/L (21-32)
[2020-07-20 06:21] LABS: CREATININE SERUM 0.56 MG/DL (0.60-1.30); GFR ESTIMATED > 60
[2020-07-20 06:22] LABS: BUN/CREATININE RATIO 7
[2020-07-20 06:23] LABS: MAGNESIUM 2.2 MG/DL (1.6-2.4)
[2020-07-20] MEDS: NS IV 1000 ML 1,000 ML IV SCH ×3 (06:33→23:02)
[2020-07-20] MEDS: MAGNESIUM 1 GM/100 ML IVPB 100 ML IV SCH (06:34)
[2020-07-20] MEDS: KCL 20 MEQ TAB (K-DUR) PO SCH (06:34)
[2020-07-20] MEDS: POTASSIUM CL 10MEQ/50ML IVPB 50 ML IV SCH (06:34)
--- NOTE | 2020-07-20 07:56 | Pulmonary Consultation ---
History of Present Illness History of Present Illness Date Seen by Provider: Jul 20, 2020 Time Seen by Provider: 07:50 Date of Admission Allergies and Home Medications Allergies Coded Allergies: No Known Drug Allergies (Unverified , 04/11/19) Home Medications Acetylcysteine 200 Mg/1 Ml Vial, 5 ML INH TID Prescribed by: YOCASTA ESCOBEDO on 07/04/20 1217 Amlodipine Besylate 5 Mg Tablet, 5 MG PO DAILY, (Reported) Atenolol 100 Mg Tablet, 100 MG PO DAILY, (Reported) Atorvastatin Calcium 20 Mg Tablet, 20 MG PO HS, (Reported) Escitalopram Oxalate 10 Mg Tablet, 10 MG PO DAILY, (Reported) Furosemide 40 Mg Tablet, 40 MG PO DAILY, (Reported) Levothyroxine Sodium 150 Mcg Tablet, 150 MCG PO DAILY, (Reported) Lisinopril 40 Mg Tablet, 40 MG PO DAILY, (Reported) Phenytoin Sodium Extended 100 Mg Capsule, 400 MG PO DAILY, (Reported) TAKES 4 (100MG) CAPS Prednisone 10 Mg Tab, MG PO DAILY, (Reported) TAPER DOSE- 6 TABS ON DAY 1 AND THEN DECREASE BY 1 TAB EACH DAY UNTIL ALL TAKEN FILLED 07-01-2020 #21/6 DAY SUPPLY Tizanidine HCl 2 Mg Tablet, 2 MG PO BID, (Reported) Past Rgkihnt-Fbrpji-Drhpav Hx Past Med/Social Hx: Reviewed Nursing Past Med/Soc Hx Patient Social History Alcohol Use: Denies Use Type Used: Smokeless Tobacco Former Smoker, Quit: Apr 11, 1999 2nd Hand Smoke Exposure: No Recent Infectious Disease Expo: No Recent Hopitalizations: No Have you traveled recently?: No Alcohol Use?: No Immunizations Up To Date Tetanus Booster (TDap): Unknown Date of Influenza Vaccine: Feb 26, 2020 Seasonal Allergies Seasonal Allergies: No Past Medical History Surgeries: Yes (Tracheostomy, laryngectomy, BACK,CATARACTS) Tracheostomy Respiratory: Yes (trach) Cardiac: Yes High Cholesterol, Hypertension Neurological: Yes (NO SEIZURES FOR 20YRS) Seizure Disorder Reproductive Disorders: No Sexually Transmitted Disease: No HIV/AIDS: No Genitourinary: No Gastrointestinal: No Musculoskeletal: Yes (FX LEFT WRIST FX November,) Chronic Back Pain Endocrine: Yes Hypothyroidsim HEENT: No (GLASSES) Loss of Vision: Denies Hearing Impairment: Denies Cancer: Yes (THROAT) Did You Recieve Any Treatments: Yes What Type of Treatment Did You: Chemotherapy, Radiation, Surgical Intervention Psychosocial: Yes Depression Integumentary: No Blood Disorders: No Adverse Reaction/Blood Tranf: No (N/A) Sepsis Event Evaluation Height, Weight, BMI Height: 5'5.00" Weight: 145lbs. 0.0oz. [id number]; 20.83 BMI Method:Stated Exam Exam Vital Signs Date Time Temp Pulse Resp B/P (MAP) Pulse Ox O2 Delivery O2 Flow Rate FiO2 07/20/20 03:53 36.5 69 20 161/65 (97) 95 Trach Collar 8.00 07/20/20 02:13 95 Trach Collar 8.00 35 07/20/20 01:00 54 07/20/20 00:00 36.3 63 19 117/60 (79) 97 Trach Collar 8.00 07/19/20 20:34 94 Trach Collar 8.00 35 07/19/20 20:33 Trach Collar 8.00 07/19/20 20:00 37.2 66 18 136/74 (94) 97 Trach Collar 9.00 07/19/20 19:00 62 07/19/20 16:00 38.0 64 18 141/66 (91) 96 Trach Collar 8.00 07/19/20 14:21 98 Trach Collar 10.00 70 07/19/20 12:30 69 07/19/20 12:05 36.9 80 16 155/69 (97) 97 Trach Collar 8.00 07/19/20 08:05 37.0 77 14 131/60 (83) 98 Trach Collar 10.00 07/19/20 08:00 Trach Collar 10.00 I & O 07/20/20 07:00 Intake Total 2440 ml Output Total 1800 ml Balance 640 ml Height & Weight Height: 5'5.00" Weight: 145lbs. 0.0oz. 65.856222zy; 20.83 BMI Method:Stated General Appearance: No Apparent Distress, Chronically ill HEENT: PERRL/EOMI, Other (dry mucous membranes) Neck: Other (tracheostomy in place, wearing trach collar) Respiratory: Lungs Clear, No Respiratory Distress, Decreased Breath Sounds Cardiovascular: Regular Rate, Rhythm, No Edema, No Murmur Capillary Refill: Less Than 3 Seconds Peripheral Pulses: 2+ Radial Pulses (R), 2+ Radial Pulses (L) Extremity: Normal Inspection, Non Tender, No Pedal Edema Neurologic/Psychiatric: Alert, Oriented x3, No Motor/Sensory Deficits, Normal Mood/Affect Skin: Normal Color, Warm/Dry Lymphatic: No Adenopathy Results Lab Laboratory Tests 07/18/20 15:30 07/19/20 04:32 07/19/20 16:53 07/20/20 05:34 Assessment/Plan Assessment/Plan Acue pulmonary embolism with hypoxia -Oxygen -Currently on Lovenox theraputic dosing -Consider switching to Xeralto or Eliquis prior to discharge -Labs reviewed -Check phosphate At high risk for venous thromboembolism Elevated troponin Venous dopplers negative Cardiology consulted Lung cancer -- Doubt PNA -PCT is negative x 2 -D/C Zosyn Tracheostomy in place Lung mass, carcinoma vs chondrosarcoma -Oncology consulted Mucous plugging COPD Mucomyst with duoneb MAT protocol HTN HLD Seizure disorder Hypothyroidism WILLIAM MENESES DO Jul 20, 2020 07:56
[2020-07-20] MEDS: PHENYTOIN 100 MG (DILANTIN) CAP PO SCH (08:07)
[2020-07-20] MEDS: ATENOLOL 50 MG (TENORMIN) TAB PO SCH (08:08)
[2020-07-20] MEDS: amLODIPine 10 MG (NORVASC) TAB PO SCH (08:08)
[2020-07-20] MEDS: lisINopril 40 MG (PRINIVIL) TABLET PO SCH (08:08)
[2020-07-20] MEDS: ASPIRIN 81 MG CHEW (CHILDREN'S ASA) PO SCH (08:08)
--- NOTE | 2020-07-20 08:42 | Occupational Therapy Eval ---
OT Evaluation-General/PLF Medical Diagnosis Admission Date Jul 18, 2020 at 18:35 Medical Diagnosis: Lung tumor, weakness Onset Date: Jul 18, 2020 Therapy Diagnosis Therapy Diagnosis: debility Height/Weight Height (Feet): 5 Height (Inches): 5.00 Weight (Pounds): 145 Weight (Ounces): 0.0 Precautions Precautions/Isolations: Fall Prevention, Standard Precautions, Pressure Ulcer Referral Physician: Garry Referral Reason: Evaluation/Treatment Medical History Additional Medical History HTN, hyperlipidemia, hypothyroidism, depression, laryngeal cancer, tracheostomy, newly diagnosed lug cancer, history of chemotherapy/radiation Current History presents with L leg pain and weakness. Pulmonary embolism confirmed on CT scan. Social History Current Living Status: Pt indicates he does not live alone. Unknown who pt lives with. ADL-Prior Level of Function SCALE: Activities may be completed with or without assistive devices. 6-Uuwvxlvrgi-pmmbeaj completes the activity by him/herself with no assistance from a helper. 5-Set-up or Clean-up Assistance-helper sets up or cleans up; patient completes activity. [place] assists only prior to or following the activity. 4-Supervision or Touching Assistance-helper provides verbal cues and/or touching/steadying and/or contact guard assistance as patient completes activity. Assistance may be provided throughout the activity or intermittently. 3-Partial/Moderate Assistance-helper does LESS THAN HALF the effort. [place] lifts, holds or supports trunk or limbs, but provides less than half the effort. 2-Substantial/Maximal Assistance-helper does MORE THAN HALF the effort. [place] lifts or holds trunk or limbs and provides more than half the effort. 8-Srzuqhjor-xtmdbt does ALL the effort. Patient does none of the effort to complete the activity. Or, the assistance of 2 or more helpers is required for the patient to complete the activity. If activity was not attempted, code reason: 7-Patient Refused. 9-Not Applicable-not attempted and the patient did not perform the activity before the current illness, exacerbation or injury. 10-Not Attempted due to Environmental Limitations-(lack of equipment, weather restraints, etc.). 88-Not Attempted due to Medical Conditions or Safety Concerns. ADL PLOF Comments OT gathered PLOF/home set up with simple yes/no questions, as it was difficult understanding what pt was saying. OT gathered that pt does not live alone, unknown who pt lives with. Pt uses walker for functional mobility around the house. he is able to shower/dress/toilet/feed himself. He has a tub/shower with a bath chair. Self Care: Unknown Functional Cognition: Unknown DME/Equipment: Bath Chair, Tub/Shower DME/Equipment Comments walker OT Current Status Subjective Pt laying in bed, agreeable to OT tx. OT communicated with pt with simple yes/no questions. OT had difficulty understanding what pt was saying. Mental Status/Objective Attachments: Oxygen (trach collar), Telemetry Current Hand Dominance: Right Upper Extremity ROM BUE shoulder flexion to approx 90 degrees. 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 Upper Extremity Coordination Decreased due to limited ROM R hand Upper Extremity Sensation Decreased, pt reports tingling/numbness BUEs. Upper Extremity Strength decreased ADL-Treatment Eating (QC): 5 (Pt indicates he fed self this AM with LUE. Based on clinical judgement, pt would require set up assist.) Oral Hygiene (QC): 5 (set up, pt able to use oral swab with LUE) Other Treatments Pt laying in bed, OT educated pt on purpose and benefit of OT. Pt provided information about PLOF and home set up by answering simple yes/no questions. He then participated in UE screen. Pt completed oral care after set up assist using oral swab with LUE. He was able to wash his face with set up assistance. Required max A with combing hair due to limited shoulder ROM and decreased coordination. Post tx, pt laying in bed, call light in reach and all needs met. Education OT Patient Education: Correct positioning, Modified ADL techniques, Progress toward Goal/Update tx plan, Purpose of tx/functional activities, Rehab process Teaching Recipient: Patient Teaching Methods: Discussion Response to Teaching: Verbalize Understanding OT Data Communications Analyst Goals Data Communications Analyst Goals 1=Demonstrate adherence to instructed precautions during ADL tasks. 2=Patient will verbalize/demonstrate understanding of assistive devices/modifications for ADL. 3=Patient will improve strength/tolerance for activity to enable patient to perform ADL's. OT Education/Plan Problem List/Assessment Pt to discharge home on hospice, thus no skilled OT services indicated at this time. Discharge Recommendations Plan/Recommendations: Discharge/Goals Met Treatment Plan/Plan of Care Patient would benefit from OT for education, treatment and training to promote independence in ADL's, mobility, safety and/or upper extremity function for ADL's. Plan of Care: ADL Retraining Treatment Duration: Jul 20, 2020 Frequency: 1 time per week (eval only) Time/GCodes Start Time: 08:16 Stop Time: 08:27 Total Time Billed (hr/min): 11 Billed Treatment Time 1, MAGGIE BANKS OT Jul 20, 2020 08:42
[2020-07-20] MEDS: PIPERACILLIN/TAZOBACTAM (BULK) 4.5 GM in NS (IVPB) 100 ML IV SCH (09:21)
--- NOTE | 2020-07-20 09:22 | Cardiology Progress Note ---
Subjective Date Seen by Provider: Jul 20, 2020 Time Seen by Provider: 08:15 Subjective/Events-last exam Patient sitting up in bed, denies any chest pain or increased dyspnea. Objective-Cardiology Exam Last Set of Vital Signs Vital Signs 07/20/20 07/20/20 08:00 09:45 Temp 37.2 Pulse 70 Resp 16 B/P (MAP) 156/80 (105) Pulse Ox 96 O2 Delivery Trach Collar O2 Flow Rate 8.00 FiO2 35 Capillary Refill : Less Than 3 Seconds I&O Intake and Output 07/19/20 23:59 Intake Total 2365 ml Output Total 1550 ml Balance 815 ml Intake Oral 1125 ml IV Total 1240 ml Output Urine Total 1550 ml # Bowel Movements 3 General: Alert, Oriented X3, Cooperative HEENT: Atraumatic, PERRLA Neck: Supple, No JVD, No Thyromegaly Lungs: Other (rhonchi) Heart: Regular Rate Abdomen: Soft, No Tenderness Extremities: No Clubbing, No Cyanosis, No Edema Skin: No Rashes, No Significant Lesion Neuro: Cranial Nerves 3-12 NL Psych/Mental Status: Mental Status NL, Mood NL Results Lab Laboratory Tests 07/19/20 16:53 07/20/20 05:34 A/P-Cardiology Admission Diagnosis Mild respiratory distress Lung CA PE HTN Assessment/Plan Tracheostomy, mild respiratory distress, improving Lung cancer, follows with Dr. Ocampo. Acute Pulmonary embolism, continue on lovenox. Mild positive troponin, likely due to PE. Echocardiogram done 07/19/2020 showing EF 55-60%, mild pulmonary regurgitation HTN, continue on current medications and continue to monitor. Patient was seen and evaluated with Anum, examination performed, management plan was discussed, agree with the current scribed note, I made few changes to the note using Italic font Patient was seen at bedside, no new complaint Discussed the management plan with the patient and with Dr. Rich, patient is electing comfort care and asking to go home. Will sign off at this point, please reconsult us if needed ANUM RAMOS Jul 20, 2020 9:22 am CASPER WELLINGTON MD Jul 20, 2020 10:53 am
[2020-07-20] MEDS ORDERED: [UNRECOGNIZED DRUG - CODE] INH (10:36)
[2020-07-20] MEDS ORDERED: IPRA3AMP31 INH (10:36)
--- NOTE | 2020-07-20 10:43 | Progress Note - Hospitalist ---
Subjective HPI/CC On Admission Date Seen by Provider: Jul 20, 2020 Time Seen by Provider: 10:40 Dima Ritter is a 69-year-old male with past medical history of hypertension, hyperlipidemia, hypothyroidism, depression, laryngeal cancer, tracheostomy, newly diagnosed lung cancer, who presented with left leg pain and weakness. He reports that he is having pain in his back and in his thigh. He was also having shortness of breath and sputum production. He denies any fevers or chills. He denies any chest pain. He denies any abdominal pain, nausea, or vomiting. He has not yet started any sort of treatment for his newly diagnosed cancer. 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 Objective Exam Vital Signs Vital Signs Date Time Temp Pulse Resp B/P (MAP) Pulse Ox O2 Delivery O2 Flow Rate FiO2 07/20/20 09:45 96 Trach Collar 8.00 35 07/20/20 08:00 37.2 70 16 156/80 (105) Capillary Refill : Less Than 3 Seconds General Appearance: No Apparent Distress, Chronically ill, Thin Neck: Other (trach in place) Respiratory: No Accessory Muscle Use, Decreased Breath Sounds Cardiovascular: Regular Rate, Rhythm, No Murmur Neurologic/Psychiatric: Alert, Oriented x3 Results/Procedures Lab Laboratory Tests 07/19/20 16:53 07/20/20 05:34 Patient resulted labs reviewed. Imaging: Reviewed Imaging Report Assessment/Plan Assessment and Plan Assess & Plan/Chief Complaint Pulmonary embolism At high risk for venous thromboembolism Elevated troponin Venous dopplers negative CT PE revealed single small pulmonary embolism Lovenox Troponin mildly elevated, likely due to PE Cardiology consulted, appreciate assistance Tracheostomy in place Lung mass, carcinoma vs chondrosarcoma Mucous plugging COPD Mucomyst MAT protocol Consult oncology, appreciate assistance Patient likely will DC with hospice, has family who works for [employer] and would like to enroll with them Back pain Possible sciatica No evidence of metastatic disease on CT spine Pain regimen PT/OT Hypokalemia Hyponatremia Monitor and replace electrolytes as needed HTN HLD Seizure disorder Hypothyroidism Continue home meds Poor prognosis Palliative care consulted, appreciate assistance LARA MUNSON MD Jul 20, 2020 10:43
--- NOTE | 2020-07-20 10:46 | Oncology Consultation ---
Visit Information Visit Information Date of Admission Jul 18, 2020 at 18:35 Attending Physician Rosalie Escobedo MD Admitting Physician Ministerio Newberry DO Chief Complaint Left side weakness and back pain in the setting of newly diagnosed lung cancer. Interval History Mr. 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 I was supposed to see him tomorrow morning at the cancer but he ended up in the ER yesterday with the left side weakness and back pain to the point that he could not move. His pain is now under better control. Work up showed very small pulmonary embolism, no bone mets in the lumbar. He does have some infiltration/atelectasis in the chest CT but procaltonin was not elevated. No fever. He has s/p tracheotomy over 10 years ago from the cancer treatment. I saw him this morning and discussed with him of chemoradiation treatment and also possible immunotherapy. But he answered NO. He wants to at home with comfort care. He is grateful for the cancer treatment he had in the past at the cancer center. I consulted the patient on: 07/20/20 10:31 Time Seen by Provider: 10:31 Review of Systems Constitutional: see HPI, weakness Respiratory: see HPI Health Status Allergies Coded Allergies: No Known Drug Allergies (Unverified , 04/11/19) Home Medications Acetylcysteine (Acetylcysteine) 200 Mg/1 Ml Vial, 5 ML INH TID for 30 Days, #10 Ref 0 Prescribed by: ROSALIE ESCOBEDO on 07/04/20 1217 Amlodipine Besylate (Amlodipine Besylate) 5 Mg Tablet, 5 MG PO DAILY, (Reported) Atenolol (Atenolol) 100 Mg Tablet, 100 MG PO DAILY, (Reported) Atorvastatin Calcium (Atorvastatin Calcium) 20 Mg Tablet, 20 MG PO HS, (Reported) Escitalopram Oxalate (Escitalopram Oxalate) 10 Mg Tablet, 10 MG PO DAILY, (Reported) Furosemide (Furosemide) 40 Mg Tablet, 40 MG PO DAILY, (Reported) Levothyroxine Sodium (Levothyroxine Sodium) 150 Mcg Tablet, 150 MCG PO DAILY, (Reported) Lisinopril (Lisinopril) 40 Mg Tablet, 40 MG PO DAILY, (Reported) Phenytoin Sodium Extended (Phenytoin Sodium Extended) 100 Mg Capsule, 400 MG PO DAILY, (Reported) TAKES 4 (100MG) CAPS Prednisone (Prednisone) 10 Mg Tab, MG PO DAILY, (Reported) TAPER DOSE- 6 TABS ON DAY 1 AND THEN DECREASE BY 1 TAB EACH DAY UNTIL ALL TAKEN FILLED 07-01-2020 #21/6 DAY SUPPLY Tizanidine HCl (Tizanidine HCl) 2 Mg Tablet, 2 MG PO BID, (Reported) UUA-Oxelxk-Gcmeyv Hx Patient Social History Type Used: Smokeless Tobacco 2nd Hand Smoke Exposure: No Recent Hopitalizations: No Alcohol Use?: No Have you traveled recently?: No Immunizations Up To Date Tetanus Booster (TDap): Unknown Date of Influenza Vaccine: Feb 26, 2020 Physical Exam Vital Signs Vital Signs - First Documented 07/18/20 07/18/20 14:28 20:12 Temp 37.2 Pulse 69 Resp 18 B/P (MAP) 147/80 (102) Pulse Ox 98 O2 Delivery Trach Collar O2 Flow Rate 2.00 FiO2 28 Capillary Refill : Less Than 3 Seconds Height, Weight, BMI Height: 5'5.00" Weight: 145lbs. 0.0oz. [id number]; 20.83 BMI Method:Stated General Appearance: No Apparent Distress Respiratory: No Accessory Muscle Use, No Respiratory Distress Extremity: No Calf Tenderness, No Pedal Edema Neurologic/Psychiatric: Alert, Oriented x3, Normal Mood/Affect Data Review Labs Laboratory Tests 07/19/20 16:53 07/20/20 05:34 Laboratory Tests 07/18/20 15:30: White Blood Count 12.4H, Red Blood Count 3.85L, Hemoglobin 12.2L, Hematocrit 36L , Neutrophils (%) (Auto) 82H, Lymphocytes (%) (Auto) 7L, Neutrophils # (Auto) 10.2H, Lymphocytes # (Auto) 0.9L, Monocytes # (Auto) 1.2H, Activated Partial Thromboplast Time 39H, D-Dimer 1.71H, Sodium Level 130L, Chloride Level 91L, Anion Gap 16H, Blood Urea Nitrogen 5L, Calcium Level 8.2L, Aspartate Amino Transf (AST/SGOT) 47H, Troponin I 0.038H 07/18/20 20:28: Troponin I 0.045H 07/19/20 04:32: Red Blood Count 3.56L, Hemoglobin 11.2L, Hematocrit 33L, Neutrophils (%) (Auto) 80H, Lymphocytes (%) (Auto) 9L, Lymphocytes # (Auto) 0.8L, Chloride Level 94L, Anion Gap 17H, Blood Urea Nitrogen 5L, Calcium Level 8.2L, Aspartate Amino Transf (AST/SGOT) 37H, Potassium Level 2.8L, Creatinine 0.56L, Total Protein 6.2L, Albumin 3.1L 07/19/20 16:53: Chloride Level 97L, Blood Urea Nitrogen 4L, Calcium Level 8.3L 07/20/20 05:34: Blood Urea Nitrogen 4L, Creatinine 0.56L Impression & Plan Impression & Plan A/P: 1. Malignant neoplasm histologically favoring chondrosarcoma. Pending final type and immunological marker for immunotherapy. But patient has decided to NOT take any treatment and to at home with comfort care. Therefore, I will cancel the further tests. 2. Primary care to decide the other treatment and hospital course. Thank you for the consultation. SAL DARLING MD Jul 20, 2020 10:46
--- NOTE | 2020-07-20 11:34 | Physical Therapy Evaluation ---
PT Evaluation-General Medical Diagnosis Admission Date Jul 18, 2020 at 18:35 Medical Diagnosis: Lung tumor, weakness Onset Date: Jul 18, 2020 Therapy Diagnosis Therapy Diagnosis: generalized weakness/debility Height/Weight Height (Feet): 5 Height (Inches): 5.00 Weight (Pounds): 145 Weight (Ounces): 0.0 Precautions Precautions/Isolations: Fall Prevention, Standard Precautions Referral Physician: Garry Reason for Referral: Evaluation/Treatment Medical History Pertinent Medical History: HTN Additional Medical History laryngeal and lung cancer with trach Current History ER with O2 trach mask secondary to weakness and inability to ambulate/increase LBP and right LE pain per patient report Reviewed History: Yes Social History Home: Single Level Current Living Status: Other Family Prior Prior Level of Function SCALE: Activities may be completed with or without assistive devices. 8-Psszhfvnwu-nunybki completes the activity by him/herself with no assistance from a helper. 5-Set-up or Clean-up Assistance-helper sets up or cleans up; patient completes activity. [place] assists only prior to or following the activity. 4-Supervision or Touching Assistance-helper provides verbal cues and/or touching/steadying and/or contact guard assistance as patient completes activ ity. Assistance may be provided throughout the activity or intermittently. 3-Partial/Moderate Assistance-helper does LESS THAN HALF the effort. [place] lifts, holds or supports trunk or limbs, but provides less than half the effort. 2-Substantial/Maximal Assistance-helper does MORE THAN HALF the effort. [place] lifts or holds trunk or limbs and provides more than half the effort. 4-Hkenqadbr-petzrr does ALL the effort. Patient does none of the effort to complete the activity. Or, the assistance of 2 or more helpers is required for the patient to complete the activity. If activity was not attempted, code reason: 7-Patient Refused. 9-Not Applicable-not attempted and the patient did not perform the activity before the current illness, exacerbation or injury. 10-Not Attempted due to Environmental Limitations-(lack of equipment, weather restraints, etc.). 88-Not Attempted due to Medical Conditions or Safety Concerns. Bed Mobility: 5 Transfers (B,C,W/C): 5 Gait: 5 Indoor Mobility (Ambulation): Independent Prior Devices Use: None PT Evaluation-Current Subjective Patient agrees to PT. Pain Numeric Pain Scale: 10-Worst Possible Pain Location: Right, Lower Location Body Site: Back Pain Description: Stabbing Objective Patient Orientation: Person, Time, Situation Attachments: Oxygen (trach mask), IV ROM/Strength ROM Lower Extremities bilateral LE WFL Strength Lower Extremities 3-/5 grossly bilateral LE all planes Integumentary/Posture Integumentary refer to nursing notes Bladder Incontinence: Yes Posture WFL Neuromuscular (Tone, Coordination, Reflexes) diminished coordination Sensory Vision: Functional Hearing: Functional Hand Dominance: Right Transfers Lying to Sitting/Side of Bed(Q: 2 Sit to Stand (QC): 2 Chair/Ztx-qq-Brxts Xfer(QC): 2 Gait Does the Patient Walk?: No and Walking Goal IS indicated Balance Sitting Static: Fair Sitting Dynamic: Fair Standing Static: Poor Standing Dynamic: Poor Assessment/Needs 69 y.o. male, per report, will dismiss to home on hospice. No skilled PT i ndicated. Rehab Potential: Poor PT Plan Treatment/Plan Treatment Plan: Discontinue PT Treatment Duration: Jul 20, 2020 Frequency: 1 time per week Estimated Hrs Per Day: .25 hour per day Patient and/or Family Agrees t: Yes Time/GCodes Time In: 1110 Time Out: 1121 Total Billed Treatment Time: 11 Total Billed Treatment 1 visit EVModC 11 min RON ESTRADA PT Jul 20, 2020 11:34
[2020-07-20] MEDS: oxyCODONE/APAP 5/325MG (PERCOCET 5) TABLET PO PRN (13:42)
[2020-07-20] MEDS ORDERED: APIX5TAB PO (19:33)
[2020-07-21] MEDS: NS IV 1000 ML 1,000 ML IV SCH (01:34)
[2020-07-21] MEDS: RT-ALBUTEROL/IPRATROPIUM 3 ML (DUONEB) VIAL INH SCH ×2 (02:10→10:20)
[2020-07-21] MEDS: aCETylcysteine 20% (MUCOMYST) 30ML SOLN VIAL INH SCH (02:10)
[2020-07-21 03:25] VITALS: BP 140/78
[2020-07-21 05:18] LABS: CHLORIDE 100 MMOL/L (98-107); POTASSIUM 3.6 MMOL/L (3.6-5.0); SODIUM 137 MMOL/L (135-145)
[2020-07-21 05:19] LABS: CALCIUM 7.9 MG/DL (8.5-10.1); GLUCOSE 99 MG/DL (70-105)
[2020-07-21 05:21] LABS: CARBON DIOXIDE 27 MMOL/L (21-32)
[2020-07-21 05:23] LABS: CREATININE SERUM 0.54 MG/DL (0.60-1.30); GFR ESTIMATED > 60
[2020-07-21 05:24] LABS: BUN/CREATININE RATIO 6
[2020-07-21 05:25] LABS: MAGNESIUM 2.1 MG/DL (1.6-2.4)
[2020-07-21] MEDS: MAGNESIUM 1 GM/100 ML IVPB 100 ML IV SCH (05:42)
[2020-07-21] MEDS: ENOXAPARIN 60 MG/0.6 ML (LOVENOX) SYR SC SCH (05:43)
[2020-07-21] MEDS: KCL 20 MEQ TAB (K-DUR) PO SCH (05:44)
[2020-07-21] MEDS: LEVOTHYROXINE 150 MCG (LEVOTHROID) TAB PO SCH (05:44)
[2020-07-21] MEDS: POTASSIUM CL 10MEQ/50ML IVPB 50 ML IV SCH ×3 (05:51→07:00)
[2020-07-21 08:00] VITALS: BP 118/76
[2020-07-21] MEDS ORDERED: OXYC1TAB87 PO (08:34)
--- NOTE | 2020-07-21 08:35 | Discharge Inst-Simple/Standard ---
Discharge Inst-Standard Patient Instructions/Follow Up Plan of Care/Instructions/FU: Please continue to take your medications as written. Please follow up with your primary care doctor to follow up this hospital stay. Activity as Tolerated: Yes Discharge Diet: No Restrictions Return to The Hospital For: Uncontrolled pain or shortness of breath, if you are not feeling well, if you feel you are getting worse. LARA MUNSON MD Jul 21, 2020 08:35
[2020-07-21] MEDS: lisINopril 40 MG (PRINIVIL) TABLET PO SCH (08:36)
[2020-07-21] MEDS: ASPIRIN 81 MG CHEW (CHILDREN'S ASA) PO SCH (08:36)
[2020-07-21] MEDS: amLODIPine 10 MG (NORVASC) TAB PO SCH (08:36)
--- NOTE | 2020-07-21 08:36 | Discharge Summary ---
Diagnosis/Chief Complaint Date of Admission Jul 18, 2020 at 18:35 Date of Discharge Discharge Date: Jul 21, 2020 Admission Diagnosis Pulmonary embolism Primary Care Ministerio Newberry DO Discharge Diagnosis (1) Pulmonary embolism Status: Acute (2) At high risk for venous thromboembolism Status: Chronic (3) PNA (pneumonia) Status: Acute (4) Lung tumor Status: Acute (5) Tracheostomy in place Status: Chronic Discharge Summary Discharge Physical Exam Allergies: Coded Allergies: No Known Drug Allergies (Unverified , 04/11/19) Vitals & I&Os Vital Signs Date Time Temp Pulse Resp B/P (MAP) Pulse Ox O2 Delivery O2 Flow Rate FiO2 07/21/20 06:32 58 07/21/20 03:25 37.1 20 140/78 (98) 93 Trach Collar 8.00 07/21/20 02:10 30 Hospital Course Labs (last 24 hrs) Laboratory Tests 07/21/20 04:58: Sodium Level 137, Potassium Level 3.6, Chloride Level 100, Carbon Dioxide Level 27, Anion Gap 10, Blood Urea Nitrogen 3L, Creatinine 0.54L, Estimat Glomerular Filtration Rate > 60, BUN/Creatinine Ratio 6, Glucose Level 99, Calcium Level 7.9L, Magnesium Level 2.1 Patient resulted labs reviewed. Pending Labs Laboratory Tests 07/21/20 04:58: Sodium Level 137, Potassium Level 3.6, Chloride Level 100, Carbon Dioxide Level 27, Anion Gap 10, Blood Urea Nitrogen 3, Creatinine 0.54, Estimat Glomerular Filtration Rate > 60, BUN/Creatinine Ratio 6, Glucose Level 99, Calcium Level 7.9, Magnesium Level 2.1 Imaging: Reviewed Imaging Report Discharge Home Medications: Active Scripts Active Percocet 5-325 mg Tablet (Oxycodone HCl/Acetaminophen) 1 Each Tablet 1 Tab PO Q4H PRN Eliquis (Apixaban) 5 Mg Tablet 5 Mg PO BID 30 Days TAKE 2 TABLETS BID X 7 DAYS, THEN 1 TABLET BID Reported Iprat-Albut 0.5-3(2.5) mg/3 ml (Ipratropium/Albuterol Sulfate) 3 Ml Ampul.neb 3 Ml INH Q4H PRN Acetylcysteine 200 Mg/1 Ml Vial 5 Ml INH TID Escitalopram Oxalate 10 Mg Tablet 10 Mg PO DAILY Furosemide 40 Mg Tablet 40 Mg PO DAILY Atorvastatin Calcium 20 Mg Tablet 20 Mg PO HS Tizanidine HCl 2 Mg Tablet 2 Mg PO BID Phenytoin Sodium Extended 100 Mg Capsule 400 Mg PO DAILY TAKES 4 (100MG) CAPS Levothyroxine Sodium 150 Mcg Tablet 150 Mcg PO DAILY Atenolol 100 Mg Tablet 100 Mg PO DAILY Instructions to patient/family Please see electronic discharge instructions given to patient. Problem Qualifiers (1) Pulmonary embolism: Pulmonary embolism type: single subsegmental (without acute cor pulmonale) Qualified Codes: I26.93 - Single subsegmental pulmonary embolism without acute cor pulmonale (2) PNA (pneumonia): Laterality: bilateral Lung location: unspecified part of lung LARA MUNSON MD Jul 21, 2020 08:36
[2020-07-21] MEDS: ATENOLOL 50 MG (TENORMIN) TAB PO SCH (08:37)
[2020-07-21] MEDS: PHENYTOIN 100 MG (DILANTIN) CAP PO SCH (08:42)
[2020-07-21 09:57] VITALS: BP 118/76
--- NOTE | 2020-07-22 10:38 | Physician Query Clarification ---
PQ-Further Specificity Admission/Discharge Admission Date: Jul 18, 2020 at 18:12 Discharge Date: Jul 21, 2020 at 10:55 Dr. Caputo, The medical record reflects the following clinical scenario: History/Risk Factors: RUL lung CA, Pneumonia, PE Clinical Findings: Troponin 0.045 Treatment: Lovenox Question: Can you further specify elevated troponin per the clinical indicators above? Please document a response in the Progress Notes or Discharge Summary. 1. [place] type 2 2. elevation troponin only 3. Other, with explanation of the clinical findings. 4. Clinically undetermined, no explanation for the clinical findings. PHYSICIAN RESPONSE Can you specify per above: 1 Please remember a lack of response to the above will prompt a phone page by [facility]/Coding staff. In responding to this query, please exercise your independent professional judgment. The purpose of this communication is to more accurately reflect the complexity of your patients condition. The fact that a question is asked does not imply that any particular answer is desired or expected. Thank you for your timely response to this clarification. Requestors name: Dexter THIS PHYSICIAN QUERY FORM IS A PERMANENT PART OF THE MEDICAL RECORD DEXTER COKER Jul 22, 2020 10:38 LARA CAPUTO MD Jul 22, 2020 20:58
== END 2020-07-21 10:55 | disposition hospice, home (50) | DRG 175 ==
LOC: EDUNIT# 14:28 → ER 14:30 → UNDOADMOB 18:12 → 4TH 18:12 → INTOOBSV 18:35 → OBSVTOIN 18:35 → UNDODISIN 07-21 10:55
PROVIDERS: ADMIT Internal Medicine; ATTEND Internal Medicine
DX: I26.99 Other pulmonary embolism without acute cor pulmonale (principal); J18.9 Pneumonia, unspecified organism; I21.A1 Myocardial infarction type 2; C34.11 Malignant neoplasm of upper lobe, right bronchus or lung; T17.590A Other foreign object in bronchus causing asphyxiation, initial encounter; E87.1 Hypo-osmolality and hyponatremia; M54.42 Lumbago with sciatica, left side; Z93.0 Tracheostomy status; Z66 Do not resuscitate; G40.909 Epilepsy, unspecified, not intractable, without status epilepticus; E87.6 Hypokalemia; E78.00 Pure hypercholesterolemia, unspecified; E78.5 Hyperlipidemia, unspecified; I10 Essential (primary) hypertension; E03.9 Hypothyroidism, unspecified; F32.9 Major depressive disorder, single episode, unspecified; Z87.891 Personal history of nicotine dependence; Z85.21 Personal history of malignant neoplasm of larynx
CPT/HCPCS: 36415; 70450; 71045; 71275; 72125; 72128; 72131; 76937; 80048; 80053; 80061; 83735; 84100; 84145; 84484; 85025; 85379; 85610; 85730; 93005; 93041; 93306; 93970; 94640; 94760